=== PATIENT | male | born 1960 | race Caucasian/White ===

== ENCOUNTER 2017-07-10 12:26 | Inpatient (IN) ==
[2017-07-10] MEDS ORDERED: 0.9 % Sodium Chloride 1,000 ML IVC ONE ×2 (12:32→13:06)
--- NOTE | 2017-07-10 12:52 | Emergency Department Note ---
Disposition Clinical Impression: SID (acute kidney injury), Hyponatremia Hypotension Qualifiers: Hypotension type: unspecified hypotension type Qualified Code(s): I95.9 - Hypotension, unspecified Disposition: Admitted As Inpatient General Adult HPI - General Chief complaint: ED Dizziness Stated complaint: dizziness/hypotension Time Seen by Provider: 07/10/17 12:29 Source: patient, EMS Mode of arrival: EMS Limitations: no limitations Nursing Notes Reviewed: Yes Vital Signs Reviewed: Yes - History of Present Illness HPI Narrative: Patient presents to the ED with the chief complaint of "I feel bad." Patient reports that for the last week. He just has not felt well. States he feels weak and lightheaded. No focal weakness, but states he is just very tired and feels rundown. He has had some nausea and vomiting after eating for the last week. No abdominal pain. No chest pain or shortness of breath. Reportedly went to therapy today for a left knee injury and noted to have low blood pressure, so he was sent to his primary care physician where his blood pressure was 80 systolic. He is on antihypertensive medications, but is only on lisinopril. No recent changes to his medicines. He does state that he is on Lasix for diastolic congestive heart failure Pain Scale: 0 - Related Data Home Medications Medication Instructions Recorded Confirmed Metformin [Glucophage] 1,000 mg PO BID 08/04/15 07/10/17 Albuterol Sulfate [Ventolin Hfa] 2 puff IH Q4H PRN 08/05/15 07/10/17 Budesonide/Formoterol 160/4.5 2 puff IH BIDR 08/05/15 07/10/17 [Symbicort] Canagliflozin [Invokana] 100 mg PO QAM 08/05/15 07/10/17 Cholecalciferol (Vitamin D3) 2,000 unit PO BID 08/05/15 07/10/17 [Vitamin D3] Clopidogrel [Plavix] 75 mg PO QAM 08/05/15 07/10/17 Linagliptin [Tradjenta] 5 mg PO QAM 08/05/15 07/10/17 Loratadine [Claritin] 10 mg PO QAM 08/05/15 07/10/17 EPINEPHrine [Epipen] 0.3 mg IM ONCE PRN 10/01/16 07/10/17 Omeprazole [PriLOSEC] 40 mg PO DAILY 10/01/16 07/10/17 Cephalexin [Keflex] 500 mg PO TID 07/10/17 07/10/17 Ibuprofen [Motrin] 600 mg PO Q8HR 07/10/17 07/10/17 Lisinopril [Zestril] 10 mg PO DAILY 07/10/17 07/10/17 Lovastatin 80 mg PO HS 07/10/17 07/10/17 Mirtazapine [Remeron] 15 mg PO HS 07/10/17 07/10/17 Propylene Glycol/Peg 400 [Systane 1 drop OP Q6H PRN 07/10/17 07/10/17 0.3-0.4% Eye Drops] Sertraline [Zoloft] 200 mg PO DAILY 07/10/17 07/10/17 Allergies Allergy/AdvReac Type Severity Reaction Status Date / Time aspirin Allergy Anaphylaxis Verified 07/10/17 12:28 Bee Pollen Allergy Anaphylaxis Verified 07/10/17 12:28 naproxen [From Aleve] Allergy Anaphylaxis Verified 07/10/17 12:28 spider venom Allergy Swelling Verified 07/10/17 12:28 of Lip/Tongue/Throat All systems ED: reviewed and negative except as stated. Constitutional: Reports: weakness. Denies: fever Eyes: Denies: vision change ENT ED: Denies: ear pain Cardiovascular: Denies: chest pain Respiratory: Denies: cough, dyspnea Gastrointestinal: Reports: nausea, vomiting. Denies: abdominal pain, diarrhea, hematemesis, melena, hematochezia Genitourinary: Denies: dysuria Musculoskeletal: Denies: back pain, neck pain Integumentary: Denies: rash Neurological: Reports: weakness, other (lightheaded). Denies: headache Endocrine: Reports: fatigue Past Medical History - Past Medical History Attestation: Yes The following information was validated with the patient. Source: patient Medical history: Reports: asthma, CHF, COPD, coronary artery disease, diabetes, GERD, hyperlipidemia, hypertension, other Surgical history: Reports: appendectomy, cholecystectomy Psychiatric history: Reports: depression - Social History Smoking Status: Never smoker Smokeless Tobacco Status: No Alcohol use: Reports: none Drug use: Reports: none Physical Exam - General Limitations: no limitations General appearance: alert, in no apparent distress - Head Head exam: atraumatic, normocephalic, normal inspection - Eye Eye exam: Present: normal appearance, PERRL, EOMI - ENT ENT exam: normal exam, normal oropharynx, mucous membranes moist - Neck Neck exam: Present: normal inspection, full ROM, trachea midline - Chest Chest inspection: Present: normal inspection, symmetric chest wall rise - Respiratory Respiratory exam: Present: normal lung sounds bilaterally. Absent: respiratory distress - Cardiovascular Cardiovascular exam: Present: regular rate, normal rhythm, normal heart sounds - Abdominal Exam Abdominal exam: Present: soft, Non-Tender, scar (Large right upper quadrant scar , well-healed). Absent: tenderness, distention, guarding, rebound, rigidity - Extremities Exam Extremities exam: Present: normal inspection, full ROM, other (L knee brace in place, reports from "brittle bones" ). Absent: tenderness, pedal edema - Expanded Lower Extremity Exam Hip/Pelvis exam: Present: pelvis stable - Neurological Exam Neurological exam: Present: alert, oriented X3 - Psychiatric Psychiatric exam: Present: normal affect, normal mood - Skin Skin exam: Present: warm, dry, intact, normal color Course Vital Signs Temperature 96.7 F L 07/10/17 12:29 Pulse Rate 74 07/10/17 12:29 Respiratory Rate 16 07/10/17 12:29 Blood Pressure 94/54 07/10/17 12:29 O2 Sat by Pulse Oximetry 94 07/10/17 12:29 Temperature 97.3 F L 07/10/17 16:21 Pulse Rate 73 07/10/17 16:21 Respiratory Rate 18 07/10/17 16:21 Blood Pressure 91/58 07/10/17 16:21 O2 Sat by Pulse Oximetry 97 07/10/17 16:21 Oxygen Delivery Oxygen Delivery Room Air Medical Decision Making - Medical Records Medical records reviewed: Yes I reviewed the patient's medical records. - Lab Data Lab results reviewed: Yes I reviewed the patient's lab results. Result diagrams: 07/10/17 13:19 07/10/17 13:11 Lab Results 07/10/17 07/10/17 07/10/17 Range/Units 13:11 13:13 13:13 WBC (4.3-11.1) K/mcL RBC (4.19-5.50) M/mcL Hgb (12.9-16.9) g/dL Hct (37.5-50.1) % MCV (83.0-100.0) fL MCH (28.0-33.3) pg MCHC (31.6-35.5) g/dL RDW (11.5-14.5) % Plt Count (140-400) K/mcL MPV (9.4-12.4) fL Immature Gran % (0-4) % Seg Neutrophils % % Lymphocytes % % Monocytes % % Eosinophils % % Basophils % % Neutrophils # (1.6-8.9) K/mcL Lymphocytes # (0.6-4.6) K/mcL Monocytes # (0.0-1.3) K/mcL Eosinophils # (0.0-0.6) K/mcL Basophils # (0.0-0.2) K/mcL Sodium 131 L (136-145) mEq/L Potassium 4.2 (3.5-4.5) mEq/L Chloride 106 (98-109) mEq/L Carbon Dioxide 15 L (19-29) mEq/L BUN 41 H (8-26) mg/dL Creatinine 3.05 H (0.72-1.25) mg/dL Est GFR ( Amer) 26 L (> 60) Est GFR (Non-Af Amer) 21 L (> 60) BUN/Creatinine Ratio 13 (6-26) Glucose 123 H (70-99) mg/dL Calculated Osmolality 283 (280-300) Lactic Acid (0.5-2.2) mmol/L Calcium 8.5 L (8.6-10.8) mg/dL Total Bilirubin 0.3 (0.2-1.2) mg/dL AST 44 H (5-34) Units/L ALT 51 (0-55) Units/L Alkaline Phosphatase 95 (38-126) Units/L Troponin I 0.00 (0-0.03) ng/mL Serum Total Protein 6.7 (6.0-8.3) g/dL Albumin 3.2 L (3.5-5.0) g/dL Globulin 3.5 (2.4-3.5) g/dL Albumin/Globulin Ratio 0.9 L (1.1-2.2) TSH 1.210 (0.350-4.840) mcIU/mL 07/10/17 07/10/17 Range/Units 13:13 13:19 WBC 4.6 (4.3-11.1) K/mcL RBC 4.75 (4.19-5.50) M/mcL Hgb 12.5 L (12.9-16.9) g/dL Hct 40.0 (37.5-50.1) % MCV 84.2 (83.0-100.0) fL MCH 26.3 L (28.0-33.3) pg MCHC 31.3 L (31.6-35.5) g/dL RDW 14.3 (11.5-14.5) % Plt Count 221 (140-400) K/mcL MPV 10.6 (9.4-12.4) fL Immature Gran % 0.4 (0-4) % Seg Neutrophils % 65.2 % Lymphocytes % 18.5 % Monocytes % 14.3 % Eosinophils % 0.9 % Basophils % 0.7 % Neutrophils # 3.0 (1.6-8.9) K/mcL Lymphocytes # 0.9 (0.6-4.6) K/mcL Monocytes # 0.7 (0.0-1.3) K/mcL Eosinophils # 0.0 (0.0-0.6) K/mcL Basophils # 0.0 (0.0-0.2) K/mcL Sodium (136-145) mEq/L Potassium (3.5-4.5) mEq/L Chloride (98-109) mEq/L Carbon Dioxide (19-29) mEq/L BUN (8-26) mg/dL Creatinine (0.72-1.25) mg/dL Est GFR ( Amer) (> 60) Est GFR (Non-Af Amer) (> 60) BUN/Creatinine Ratio (6-26) Glucose (70-99) mg/dL Calculated Osmolality (280-300) Lactic Acid 1.5 (0.5-2.2) mmol/L Calcium (8.6-10.8) mg/dL Total Bilirubin (0.2-1.2) mg/dL AST (5-34) Units/L ALT (0-55) Units/L Alkaline Phosphatase (38-126) Units/L Troponin I (0-0.03) ng/mL Serum Total Protein (6.0-8.3) g/dL Albumin (3.5-5.0) g/dL Globulin (2.4-3.5) g/dL Albumin/Globulin Ratio (1.1-2.2) TSH (0.350-4.840) mcIU/mL - Radiology Data Radiology results reviewed: Yes I reviewed the patient's radiology results. - EKG Data EKG #1 EKG attestation: Yes I reviewed and interpreted this EKG. EKG results narrative: Sinus rhythm with first-degree AV block, rate 74, DE interval 349, QRS 90, QTC 370, normal axis, no acute ischemic changes compared to previous on 3016
--- NOTE | 2017-07-10 13:10 | Emergency Department Note ---
START Narrative - START START: I examined this patient and my medical decision-making was reviewed with the emergency medicine resident. I agree with the documented findings, disposition and treatment plan as described except to the extent set forth below. Patient seen with emergency medicine resident Dr. Saran Cartwright, Please see a copy of his note for details of the H&P, ED evaluation, management and disposition. I have independently evaluated the patient and confirmed appropriate portions of the history and physical exam. Briefly: A 57-year-old male by EMS for hypertension and dizziness. Takes only lisinopril for blood pressure control and 10 mg. Normal systolic runs in the low 1 teens. He was 70 and 80 systolic standing and sitting. After a liter fluid he was 90 systolic. No external signs of infection hemorrhage or trauma. Visual get ED workup increased IV fluid. Possibly admission for persistent hypotension. Providing 35 minutes critical care service for this patient.
[2017-07-10 13:28] LABS: Basophils % 0.7 %; Eosinophils % 0.9 %; Hemoglobin 12.5 g/dL (12.9-16.9); Immature Granulocytes % 0.4 % (0-4); Lymphocytes # 0.9 K/mcL (0.6-4.6); Lymphocytes % 18.5 %; Mean Corpuscular HGB Conc 31.3 g/dL (31.6-35.5); Mean Corpuscular Hemoglobin 26.3 pg (28.0-33.3); Mean Corpuscular Volume 84.2 fL (83.0-100.0); Mean Platelet Volume 10.6 fL (9.4-12.4); Monocytes # 0.7 K/mcL (0.0-1.3); Monocytes % 14.3 %; Platelet Count 221 K/mcL (140-400); Red Blood Count 4.75 M/mcL (4.19-5.50); Red Cell Distribution Width 14.3 % (11.5-14.5); Segmented Neutrophils % 65.2 %
[2017-07-10 13:36] LABS: Albumin 3.2 g/dL (3.5-5.0); Albumin/Globulin Ratio 0.9 (1.1-2.2); Bilirubin,Total 0.3 mg/dL (0.2-1.2); Calcium 8.5 mg/dL (8.6-10.8); Globulin 3.5 g/dL (2.4-3.5); Potassium 4.2 mEq/L (3.5-4.5); Total Protein 6.7 g/dL (6.0-8.3)
--- NOTE | 2017-07-10 15:53 | Event Note ---
Date of Encounter: 07/10/17 Time of Encounter: 15:49 1) acute on chronic renal failure, unclear etiology, nephrology consult hold lisinopril and lasix send urine prot, creat and Na IVF 2)diast CHF stable 3) DOROTHY, uses BIPAP 4) GERD famotidine for GI Prophylaxis and sub Q heparin for GI prophylaxis. Obaservation, full code. Time spent: 40 min H and P to be completed by PERSONNEL ARBITRATOR Milagro Antunez
[2017-07-10] MEDS ORDERED: *HR* Dextrose 50 % in Water (Syg) 50 ML SYRINGE IVP PRN (15:57)
[2017-07-10] MEDS ORDERED: Dextrose Gel 15 GM PO PRN ×2 (15:57)
[2017-07-10] MEDS ORDERED: D5% in Water 1,000 ML IVC PRN (15:57)
[2017-07-10] MEDS ORDERED: Naloxone 0.4 MG/ML INJ IVP PRN (16:12)
--- NOTE | 2017-07-10 16:26 | Internal Med History&Physical ---
Date of Encounter: 07/10/17 Time of Encounter: 16:21 Assessment and Plan (1) Acute renal failure Current visit: Yes Status: Acute 1 creatinine is 3.05 it appears it has been going up past few months in April was 1.9. He has been taking lisinopril as well as ibuprofen states he was on Lasix but recently stopped. Suspect this may be related to hypoperfusion systolic blood pressures 70s and 80s. We will continue with IV hydration overnight and continue to monitor creatinine 2 we will avoid nephrotoxins 3 consult nephrology-spoke with Dr. Dee who will see patient 4 monitor intake and output daily weights 5 renal ultrasound 6 obtain urine sodium creatinine Qualifiers: Acute renal failure type: unspecified Qualified Code(s): N17.9 - Acute kidney failure, unspecified (2) Obstructive sleep apnea Current visit: No Status: Chronic Continue with BiPAP at night (3) Diabetes Current visit: No Status: Chronic 1 we will hold all medications for now Accu-Cheks before meals A status was signed scale insulin Qualifiers: Diabetes mellitus type: type 2 Diabetes mellitus complication status: without complication Diabetes mellitus buttermaker continuous churn insulin use: without buttermaker continuous churn use Qualified Code(s): E11.9 - Type 2 diabetes mellitus without complications (4) HTN (hypertension) Current visit: No Status: Chronic 1 Presently patient is hypotensive we will hold antihypertensives for now Qualifiers: Hypertension type: essential hypertension Qualified Code(s): I10 - Essential (primary) hypertension (5) COPD (chronic obstructive pulmonary disease) Current visit: No Status: Chronic 1 presently stable bronchodilators as needed oxygen as needed Qualifiers: COPD type: unspecified COPD Qualified Code(s): J44.9 - Chronic obstructive pulmonary disease, unspecified (6) DVT prophylaxis Current visit: No Status: Acute Heparin subcutaneous Internal Medicine - H&P: HPI Chief complaint: hypotension Admitted From: Emergency Dept Plans for Post Hospital Care: Home History of present illness: Mr. Varela is a 57 year old male past medical history of diastolic heart failure COPD and DOROTHY with BiPAP at night diabetes coronary artery disease hyperlipidemia hypertension coronary disease. According to the patient he has not been feeling well for the past week. He has been feeling weak and lightheaded and fatigued. He has had some episodes of nausea and vomiting after eating. He denies any abdominal pain chest pain or shortness of breath. He went to physical therapy today for a left knee injury, upon arrival they did check his blood pressure is systolic was in the 80s he was advised to go to his primary care physician. Upon arrival there his blood pressure is rechecked at that time he was in the mid 70s. He was advised to go to the ER for evaluation. He does take antihypertensive is on lisinopril as well as he does take Lasix for diastolic heart failure. However he states he has not taken his Lasix in the past 2 weeks due to dehydration. He denies any urinary complaints back pain or fevers. He has been taking ibuprofen for knee pain. In the ER lab work was drawn which did reveal an elevated creatinine 3.05 it appears that he was slightly increased for the past few months however this is the highest it has been. Bicarbonate is 15 sodium was 131 BUN was 41. Troponin was 0 TSH is 1.2 lactate was 1.5 leukocytosis. His pressure was 94/54 on presentation chest x-ray with no acute process. He denies any renal failure in the past He was given IV fluid and he has been admitted for further work up evaluation. Presently the patient does not appear to be dehydrated his lung sounds are clear heart sounds are regular abdomen is obese soft nontender palpation no pedal edema. He denies any chest pain lightheadedness or shortness of breath this time Past Med Surg Social Fam HX - Past Medical History Medical history: asthma, CHF, COPD, coronary artery disease, diabetes, GERD, hyperlipidemia, hypertension, other Psychiatric history: depression - Past Surgical History Surgical History: appendectomy, cholecystectomy - Social History Smoking Status: Never smoker Smokeless Tobacco Status: No Alcohol use: none Drug use: none - Family History Mother Adopted: Yes Internal Medicine - H&P: Meds Metformin [Glucophage] 1,000 mg PO BID 08/04/15 [History] Albuterol Sulfate [Ventolin Hfa] 2 puff IH Q4H PRN 08/05/15 [History] Budesonide/Formoterol 160/4.5 [Symbicort] 2 puff IH BIDR 08/05/15 [History] Canagliflozin [Invokana] 100 mg PO QAM 08/05/15 [History] Cholecalciferol (Vitamin D3) [Vitamin D3] 2,000 unit PO BID 08/05/15 [History] Clopidogrel [Plavix] 75 mg PO QAM 08/05/15 [History] Linagliptin [Tradjenta] 5 mg PO QAM 08/05/15 [History] Loratadine [Claritin] 10 mg PO QAM 08/05/15 [History] EPINEPHrine [Epipen] 0.3 mg IM ONCE PRN 10/01/16 [History] Omeprazole [PriLOSEC] 40 mg PO DAILY 10/01/16 [History] Cephalexin [Keflex] 500 mg PO TID 07/10/17 [History] Ibuprofen [Motrin] 600 mg PO Q8HR 07/10/17 [History] Lisinopril [Zestril] 10 mg PO DAILY 07/10/17 [History] Lovastatin 80 mg PO HS 07/10/17 [History] Mirtazapine [Remeron] 15 mg PO HS 07/10/17 [History] Propylene Glycol/Peg 400 [Systane 0.3-0.4% Eye Drops] 1 drop OP Q6H PRN [History] Sertraline [Zoloft] 200 mg PO DAILY 07/10/17 [History] 3 Allergy/AdvReac Type Severity Reaction Status Date / Time aspirin Allergy Anaphylaxis Verified 07/10/17 12:28 Bee Pollen Allergy Anaphylaxis Verified 07/10/17 12:28 naproxen [From Aleve] Allergy Anaphylaxis Verified 07/10/17 12:28 spider venom Allergy Swelling Verified 07/10/17 12:28 of Lip/Tongue/Throat All Systems PM: A 10-system review of systems was performed and is negative for pertinent findings except as documented above in the HPI. - Constitutional Constitutional: fatigue, no chills, no fever(s), no night sweats - EENT Eyes: no change in vision, no discharge, no pain, no photophobia Nose, mouth and throat: no dysphagia, no nasal discharge, no neck pain, no sore throat - Cardiovascular Cardiovascular ROS IM: no chest pain, no diaphoresis, no dyspnea, no lightheadedness, no palpitations, no syncope - Respiratory Respiratory: no cough, no dyspnea, no wheezing, no excessive phlegm production - Gastrointestinal Gastrointestinal: nausea - Musculoskeletal Musculoskeletal ROS IM: no numbness, no tingling - Integumentary Integumentary IM: no rash, no unusual bruising - Neurological Neurological ROS: no confusion, no convulsions, no focal weakness, no numbness, no tingling, no tremor(s) - Hematologic/Lymphatic Hematologic/Lymphatic: no easy bruising - Constitutional Vitals: Temp Pulse Resp BP Pulse Ox 96.7 F L 68 15 99/68 98 07/10/17 12:29 07/10/17 15:13 07/10/17 15:31 07/10/17 15:31 07/10/17 15:13 General appearance: Present: A&O X 3, answers questions appropriately - Head Head exam: Present: atraumatic, normocephalic - Eye Eye exam: Present: PERRL, conjuntiva pink, sclera anicteric Pupils: Present: PERRL - Neck Neck exam general surgery: Present: supple, trachea midline. Absent: lymphadenopathy - Respiratory Respiratory exam: Present: CTAB. Absent: accessory muscle use, rales, rhonchi, wheezes - Cardiovascular Cardiovascular exam: Present: RRR, +S1, +S2. Absent: diastolic murmur, gallop, rubs, systolic murmur - GI/Abdominal GI/Abdominal exam: Present: normal bowel sounds, soft, no peritoneal signs. Absent: distended, tenderness - Extremities Exam Extremities exam: Present: warm, radial pulses palpable and symmetrical. Absent : calf tenderness, cyanotic, pedal edema - Neurological Exam Neurological exam: Present: CN II-XII intact, oriented X3, no focal deficits. Absent: pronater drift, facial droop, speech deficit - Skin Skin exam: Present: dry, intact Internal Med - H&P Results - Labs CBC & Chem 7: 07/10/17 13:19 07/10/17 13:11 - Diagnostic Studies Other Images Additional comments: Chest X-Ray 07/10/17 12:32 IMPRESSION: No acute process. D/ / Marilyn Shirley MD / Marilyn Shirley MD Interpreting Provider: Marilyn Shirley MD
[2017-07-10] MEDS ORDERED: Albuterol 2.5 MG/3 ML NEBULIZER IH PRN (16:55)
[2017-07-10 17:09] LABS: Protein/Creatinine Ratio,Urine 0.44 mg/mg (0-0.20)
--- NOTE | 2017-07-10 17:45 | Nephrology Consult Note ---
Date of Encounter: 07/10/17 Time of Encounter: 17:30 Assessment and Plan (1) SID (acute kidney injury) Current Visit: Yes Status: Acute Elevated SCr in the setting of hypotension, ACEi and NSAIDs Agree with aggressive volume repletion Agree with avoiding lisinopril, ibuprofen and diuretics Agree with obtaining US of kidney Will check urine for eosinophil. Urine sodium noted Will check CPK and uric acid levels No acute indication for [employer] at this time (2) Hyponatremia Current Visit: Yes Status: Acute Sodium noted at 131 likely due to SID Should improve with IVF; NS (3) Metabolic acidosis Current Visit: Yes Status: Acute Due to SID, continue NS for now for volume repletion If bicarb still low by tomorrow, can add bicarb to fluids History of Present Illness - Reason for Consult Consult date: 07/10/17 Acute Kidney Injury Requesting physician: Milagro Antunez - History of Present Illness 57 y o female with PMH of DM, HTN, diastolic CHF, COPD and DOROTHY presenting in the ED for dizziness and lightheadedness and was noted to have BP readings around 70s systolic while on lisinopril. He reports taking lasix until 2 weeks ago. Scr noted at 3.05, GFR 21 previously 1.9, GFR 36 in April but prior to february GFR typically >60. He denies any family history of renal disease and reports SID during previous hospital sty. He denies any urinary sxs. He reports taking ibuprofen three times daily for arthritis. Past Med Surg Social Fam HX - Past Medical History Medical history: asthma, CHF, COPD, coronary artery disease, diabetes, GERD, hyperlipidemia, hypertension, other Psychiatric history: depression - Past Surgical History Surgical History: appendectomy, cholecystectomy - Social History Smoking Status: Never smoker Smokeless Tobacco Status: No Alcohol use: none Drug use: none - Family History Mother Adopted: Yes Medications and Allergies Metformin [Glucophage] 1,000 mg PO BID 08/04/15 [History] Albuterol Sulfate [Ventolin Hfa] 2 puff IH Q4H PRN 08/05/15 [History] Budesonide/Formoterol 160/4.5 [Symbicort] 2 puff IH BIDR 08/05/15 [History] Canagliflozin [Invokana] 100 mg PO QAM 08/05/15 [History] Cholecalciferol (Vitamin D3) [Vitamin D3] 2,000 unit PO BID 08/05/15 [History] Clopidogrel [Plavix] 75 mg PO QAM 08/05/15 [History] Linagliptin [Tradjenta] 5 mg PO QAM 08/05/15 [History] Loratadine [Claritin] 10 mg PO QAM 08/05/15 [History] EPINEPHrine [Epipen] 0.3 mg IM ONCE PRN 10/01/16 [History] Omeprazole [PriLOSEC] 40 mg PO DAILY 10/01/16 [History] Cephalexin [Keflex] 500 mg PO TID 07/10/17 [History] Ibuprofen [Motrin] 600 mg PO Q8HR 07/10/17 [History] Lisinopril [Zestril] 10 mg PO DAILY 07/10/17 [History] Lovastatin 80 mg PO HS 07/10/17 [History] Mirtazapine [Remeron] 15 mg PO HS 07/10/17 [History] Propylene Glycol/Peg 400 [Systane 0.3-0.4% Eye Drops] 1 drop OP Q6H PRN [History] Sertraline [Zoloft] 200 mg PO DAILY 07/10/17 [History] 3 Allergy/AdvReac Type Severity Reaction Status Date / Time aspirin Allergy Anaphylaxis Verified 07/10/17 12:28 Bee Pollen Allergy Anaphylaxis Verified 07/10/17 12:28 naproxen [From Aleve] Allergy Anaphylaxis Verified 07/10/17 12:28 spider venom Allergy Swelling Verified 07/10/17 12:28 of Lip/Tongue/Throat Review of Systems All Systems: reviewed and no additional remarkable complaints except as stated ( as noted in HPI) Exam - Vital Signs Vital signs: Initial Vital Signs Temp Pulse Resp BP Pulse Ox 96.7 F L 74 16 94/54 94 07/10/17 12:29 07/10/17 12:29 07/10/17 12:29 07/10/17 12:29 07/10/17 12:29 Vital Signs - Last 8 Hours Temp Pulse Resp BP Pulse Ox 07/10/17 16:21 97.3 F L 73 18 91/58 97 Intake and Output 07/10/17 07/10/17 07/10/17 07:59 15:59 23:59 Output Total 150 / 150 Balance -150 / -150 Output: Urine 150 / 150 Other: Stool Size Small Stool Consistency loose Stool Color Brown Blood Glucose* 104 - General Appearance General appearance: well-developed, well-nourished (NAD) EENT: ATNC, mucous membranes dry Neck: no JVD, supple Respiratory: clear (ant bilat) Cardiology: no edema, regular rate, regular rhythm, normal S1, normal S2 Gastrointestinal: no tenderness, no guarding Integumentary: warm and dry Neurologic: no focal deficit Musculoskeletal: no deformities Psychiatric: mood/affect appropriate, cooperative Results - Lab Results 07/10/17 13:19 07/10/17 13:11 Most recent lab results Calcium 8.5 mg/dL (8.6-10.8) L 07/10/17 13:11 Urine Creatinine 117 mg/dL 07/10/17 16:18 Urine Sodium 49.0 mEq/L 07/10/17 16:18 Urine Total Protein 51 mg/dL (1-14) H 07/10/17 16:18 Consult Discharge Plan - Plan Referrals: Zeynep Byrnes MD [Primary Care Provider] -
[2017-07-10] MEDS: Insulin LISPRO 300 UNITS/3 ML VIAL SQ SCH (17:49)
[2017-07-10] MEDS: 0.9 % Sodium Chloride 1,000 ML IVC SCH (18:05)
[2017-07-10] MEDS: *HR* Heparin 5,000 UNIT/ML VIAL SQ SCH (18:05)
[2017-07-10 18:50] LABS: Uric Acid 6.9 mg/dL (3.5-7.2)
--- NOTE | 2017-07-10 19:56 | Electrocardiograph Report ---
[place] [address] Test Date: 2017-07-10 Pat Name: Chase Varela Department: 103 Room: 2A Gender: M [employer] Compensation Defense Attorney: : 1960 Requested By: Saran Cartwright Order Number: [id number] Reading MD: Aleks Monteiro MD Measurements Intervals [place] Rate: 74 P: 24 MI: 349 QRS: 9 QRSD: 90 T: 5 QT: 343 QTc: 370 Interpretive Statements SINUS RHYTHM WITH FIRST DEGREE AV BLOCK LOW QRS VOLTAGE IN PRECORDIAL LEADS Electronically Signed On 07-10-2017 19:54:41 EDT by Aleks Monteiro MD
[2017-07-10] MEDS: Mirtazapine 15 MG TABLET PO SCH (20:46)
[2017-07-10] MEDS: Budesonide/Formoterol 160/4.5 MDI IH SCH (22:45)
[2017-07-11] MEDS: 0.9 % Sodium Chloride 1,000 ML IVC SCH ×2 (03:53→11:40)
[2017-07-11 04:27] LABS: Basophils % 0.9 %; Eosinophils % 0.6 %; Hematocrit 33.6 % (37.5-50.1); Immature Granulocytes % 0.6 % (0-4); Lymphocytes % 28.4 %; Mean Corpuscular HGB Conc 31.8 g/dL (31.6-35.5); Mean Corpuscular Hemoglobin 26.6 pg (28.0-33.3); Mean Corpuscular Volume 83.6 fL (83.0-100.0); Mean Platelet Volume 10.1 fL (9.4-12.4); Monocytes # 0.5 K/mcL (0.0-1.3); Monocytes % 13.7 %; Neutrophils # 1.9 K/mcL (1.6-8.9); Platelet Count 168 K/mcL (140-400); Red Blood Count 4.02 M/mcL (4.19-5.50); Red Cell Distribution Width 14.2 % (11.5-14.5); Segmented Neutrophils % 55.8 %
[2017-07-11 04:28] LABS: Hemoglobin 10.7 g/dL (12.9-16.9)
[2017-07-11 04:40] LABS: Calcium 8.3 mg/dL (8.6-10.8); Magnesium 1.8 mg/dL (1.6-2.6); Phosphorous 4.4 mg/dL (2.3-4.7)
[2017-07-11] MEDS: *HR* Heparin 5,000 UNIT/ML VIAL SQ SCH ×2 (06:10→16:50)
[2017-07-11] MEDS: Insulin LISPRO 300 UNITS/3 ML VIAL SQ SCH ×4 (07:24→21:10)
--- NOTE | 2017-07-11 10:40 | Nephrology Progress Note ---
Date of Encounter: 07/11/17 Time of Encounter: 09:45 - Assessment and Plan (1) SID (acute kidney injury) Current Visit: Yes Status: Acute Nonoliguric SID on CKD stage III, trending better, but with his hyperchloremic metabolic acidosis I rec switching the 0.9% saline (which can worsening / induce a dilutional metabolic acidosis) to 1/2NS +75mEq. Renal U/S was reassuring. SID related to NSAIDs, Metformin, Invokana with pre-existing eGFR near upper 30s since February, consistent with CKD stage III. Hold all nephrotoxins. Trending better. (2) Metabolic acidosis Current Visit: Yes Status: Acute (3) Diabetes Current Visit: No Status: Chronic Qualifiers: Diabetes mellitus type: type 2 Diabetes mellitus complication status: without complication Diabetes mellitus residential insulin use: without director long term care use Qualified Code(s): E11.9 - Type 2 diabetes mellitus without complications (4) HTN (hypertension) Current Visit: Yes Status: Chronic Qualifiers: Hypertension type: essential hypertension Qualified Code(s): I10 - Essential (primary) hypertension (5) CKD stage 3 secondary to diabetes Current Visit: Yes Status: Chronic Subjective Principal diagnosis: SID Interval history: Pt was s/e earlier today. He did not affirm N/V/D or uremic symptoms. Objective - Vital Signs Vital signs: Vital Signs Temp Pulse Resp BP Pulse Ox 07/11/17 06:51 98.0 F 75 24 91/56 98 07/11/17 05:06 97.7 F 82 20 100/64 97 07/11/17 04:09 25 96 07/10/17 23:31 97.9 F 83 20 106/56 100 07/10/17 22:50 27 98 07/10/17 22:45 20 95 07/10/17 20:31 98 F 75 20 96/57 97 07/10/17 16:21 97.3 F L 73 18 91/58 97 Intake and Output 07/10/17 07/11/17 07/11/17 23:59 07:59 15:59 Intake Total 240 / 240 1120 / 1120 840 / 840 Output Total 500 / 500 1550 / 1550 175 / 175 Balance -260 / -260 -430 / -430 665 / 665 Intake: IV Fluids 1000 / 1000 600 / 600 0.9 % Sodium Chloride 1,000 ML 1000 / 1000 600 / 600 @ 100 mls/hr IVC .Q10H [facility] Rx#: [id number] Oral 240 / 240 120 / 120 240 / 240 Output: Urine 500 / 500 1550 / 1550 175 / 175 Other: Meal Breakfast Percent of Meal Consumed 100% Stool Size Small Stool Consistency loose Stool Color Brown # Voids 1 Weight 102.058 kg Blood Glucose* 96 86 198 Patient Weight 07/11/17 23:59 Weight 102.058 kg - General Appearance General appearance: Present: well-developed, well-nourished, appears started age , obese EENT: Present: ATNC, PERRL, mucous membranes moist Neck: Present: supple Respiratory: Present: course breath sounds Cardiology: Present: no edema, regular rate, regular rhythm, normal S1, normal S2 Gastrointestinal: Present: normoactive bowel sounds, no guarding, obese Integumentary: Present: warm and dry Neurologic: Present: no asterixis, alert and oriented x3 Musculoskeletal: Present: no cyanosis, no clubbing Psychiatric: Present: mood/affect appropriate, cooperative - Lab 07/11/17 04:18 07/11/17 04:18 Most recent lab results Calcium 8.3 mg/dL (8.6-10.8) L 07/11/17 04:18 Phosphorus 4.4 mg/dL (2.3-4.7) 07/11/17 04:18 Magnesium 1.8 mg/dL (1.6-2.6) 07/11/17 04:18 Urine Creatinine 117 mg/dL 07/10/17 16:18 Urine Sodium 49.0 mEq/L 07/10/17 16:18 Urine Total Protein 51 mg/dL (1-14) H 07/10/17 16:18 Consult Discharge Plan - Plan Referrals: Zeynep Byrnes MD [Primary Care Provider] -
[2017-07-11] MEDS: Budesonide/Formoterol 160/4.5 MDI IH SCH ×2 (10:51→22:35)
--- NOTE | 2017-07-11 17:01 | Internal Med Progress Note ---
Date of Encounter: 07/11/17 Time of Encounter: 16:59 - Assessment and plan (1) Acute renal failure Current Visit: Yes Status: Acute Qualifiers: Acute renal failure type: unspecified Qualified Code(s): N17.9 - Acute kidney failure, unspecified (2) Metabolic acidosis Current Visit: Yes Status: Acute (3) Diabetes Current Visit: No Status: Chronic Qualifiers: Diabetes mellitus type: type 2 Diabetes mellitus complication status: without complication Diabetes mellitus correction insulin use: without terminal supervisor use Qualified Code(s): E11.9 - Type 2 diabetes mellitus without complications (4) HTN (hypertension) Current Visit: Yes Status: Chronic Qualifiers: Hypertension type: essential hypertension Qualified Code(s): I10 - Essential (primary) hypertension (5) HLD (hyperlipidemia) Current Visit: Yes Status: Chronic Qualifiers: Hyperlipidemia type: unspecified Qualified Code(s): E78.5 - Hyperlipidemia , unspecified (6) COPD (chronic obstructive pulmonary disease) Current Visit: Yes Status: Chronic Qualifiers: COPD type: unspecified COPD Qualified Code(s): J44.9 - Chronic obstructive pulmonary disease, unspecified - Subjective Interval history: Mr. Chase Varela is a 57-year-old male with past medical history significant for hypertension dyslipidemia and diabetes and stage III CKD. He is admitted with acute on chronic kidney disease. Previously creatinine was normal but now it has mounted up above 3. This morning it has started to come down with IV hydration. His nephrotoxins including lisinopril and metformin, Invokana,and Tradjenta are on hold now. Overall patient seems to stable. Nephrology is consulted Patient is on sliding scale with Accu-Chek 4 times a day as well as his daily blood pressure monitoring. - Constitutional Vitals: Temp Pulse Resp BP Pulse Ox 97.6 F 74 24 103/67 97 07/11/17 15:52 07/11/17 15:52 07/11/17 15:52 07/11/17 15:52 07/11/17 15:52 General appearance: Present: A&O X 3, answers questions appropriately - Head Head exam: Present: atraumatic, normocephalic - Eye Eye exam: Present: PERRL, conjuntiva pink, sclera anicteric Pupils: Present: PERRL - Neck Neck exam general surgery: Present: supple, trachea midline. Absent: lymphadenopathy - Respiratory Respiratory exam: Present: CTAB. Absent: accessory muscle use, rales, rhonchi, wheezes - Cardiovascular Cardiovascular exam: Present: RRR, +S1, +S2. Absent: diastolic murmur, gallop, rubs, systolic murmur - GI/Abdominal GI/Abdominal exam: Present: normal bowel sounds, soft, no peritoneal signs. Absent: distended, tenderness - Extremities Exam Extremities exam: Present: warm, radial pulses palpable and symmetrical. Absent : calf tenderness, cyanotic, pedal edema - Neurological Exam Neurological exam: Present: CN II-XII intact, oriented X3, no focal deficits. Absent: pronater drift, facial droop, speech deficit - Skin Skin exam: Present: dry, intact Internal Medicine: Result - Labs CBC & Chem 7: 07/11/17 04:18 07/11/17 04:18 Labs: Short CBC 07/11/17 Range/Units 04:18 WBC 3.4 L (4.3-11.1) K/mcL Hgb 10.7 L D (12.9-16.9) g/dL Hct 33.6 L (37.5-50.1) % Plt Count 168 (140-400) K/mcL Neutrophils # 1.9 (1.6-8.9) K/mcL BMP 07/11/17 04:18 Sodium 133 L Potassium 4.0 Chloride 110 H Carbon Dioxide 15 L BUN 34 H Creatinine 2.32 H Glucose 95 Calcium 8.3 L - Impressions Impressions Retroperitoneum Ultrasound 07/10/17 18:00 IMPRESSION: Unremarkable ultrasound the kidneys without evidence of hydronephrosis. D/ / Dallas Nicole MD / Dallas Nicole MD Interpreting Provider: Dallas Nicole MD Consult Discharge Plan - Plan Referrals: Zeynep Byrnes MD [Primary Care Provider] -
[2017-07-11] MEDS ORDERED: Sodium Bicarbonate 75 MEQ in 0.45 % Sodium Chloride 1,000 ML IVC SCH (17:15)
[2017-07-11] MEDS: Sodium Bicarbonate 75 MEQ in 0.45 % Sodium Chloride 1,000 ML IVC SCH (18:25)
[2017-07-11] MEDS: Mirtazapine 15 MG TABLET PO SCH (21:09)
[2017-07-11] MEDS: Melatonin 3 MG TABLET PO SCH (21:09)
[2017-07-11] MEDS ORDERED: Budesonide/Formoterol 80/4.5 MDI IH SCH (22:28)
[2017-07-12 04:11] LABS: Basophils % 0.9 %; Eosinophils % 0.6 %; Hematocrit 31.6 % (37.5-50.1); Hemoglobin 10.4 g/dL (12.9-16.9); Immature Granulocytes % 0.3 % (0-4); Lymphocytes # 1.1 K/mcL (0.6-4.6); Lymphocytes % 33.5 %; Mean Corpuscular HGB Conc 32.9 g/dL (31.6-35.5); Mean Corpuscular Hemoglobin 27.3 pg (28.0-33.3); Mean Corpuscular Volume 82.9 fL (83.0-100.0); Mean Platelet Volume 10.5 fL (9.4-12.4); Monocytes # 0.4 K/mcL (0.0-1.3); Monocytes % 11.8 %; Neutrophils # 1.8 K/mcL (1.6-8.9); Platelet Count 173 K/mcL (140-400); Red Blood Count 3.81 M/mcL (4.19-5.50); Red Cell Distribution Width 14.4 % (11.5-14.5); Segmented Neutrophils % 52.9 %
[2017-07-12 04:28] LABS: Alanine Aminotransferase 37 Units/L (0-55); Albumin 2.9 g/dL (3.5-5.0); Albumin/Globulin Ratio 0.9 (1.1-2.2); Alkaline Phosphatase 80 Units/L (38-126); Aspartate Amino Transferase 32 Units/L (5-34); BUN/Creatinine Ratio 21 (6-26); Bilirubin,Total 0.3 mg/dL (0.2-1.2); Blood Urea Nitrogen 27 mg/dL (8-26); Calcium 8.5 mg/dL (8.6-10.8); Carbon Dioxide 20 mEq/L (19-29); Chloride 111 mEq/L (98-109); Globulin 3.3 g/dL (2.4-3.5); Glucose 111 mg/dL (70-99); Magnesium 1.4 mg/dL (1.6-2.6); Osmolality,Calculated 292 (280-300); Phosphorous 3.4 mg/dL (2.3-4.7); Sodium 138 mEq/L (136-145); Total Protein 6.2 g/dL (6.0-8.3); eGFR For African Americans > 60 (> 60); eGFR For Non-African Americans 57 (> 60)
[2017-07-12] MEDS: Sodium Bicarbonate 75 MEQ in 0.45 % Sodium Chloride 1,000 ML IVC SCH (04:55)
[2017-07-12] MEDS: *HR* Heparin 5,000 UNIT/ML VIAL SQ SCH ×2 (04:57→17:53)
[2017-07-12] MEDS: Insulin LISPRO 300 UNITS/3 ML VIAL SQ SCH ×4 (07:29→20:43)
[2017-07-12] MEDS: Budesonide/Formoterol 160/4.5 MDI IH SCH ×2 (07:45→19:51)
[2017-07-12] MEDS: Magnesium Sulfate 2 GM in D5% in Water 100 ML IVPB SCH ×2 (08:27→09:41)
--- NOTE | 2017-07-12 09:58 | Nephrology Progress Note ---
Date of Encounter: 07/12/17 Time of Encounter: 08:00 - Assessment and Plan (1) SID (acute kidney injury) Current Visit: Yes Status: Acute Nonoliguric SID on CKD stage III, trending better even more today to near his prior eGFR levels (based upon the trended data in [employer]) Metabolic acidosis: has improved with the change to the 1/2NS +75mEq. However, now that he has nearly reached renal recovery and he has no N/V or limitations to oral intake, I will stop the IVF today. Renal U/S was reassuring. SID related to NSAIDs, Metformin, Invokana with pre-existing eGFR near upper 30s since February, consistent with CKD stage III. Hold all nephrotoxins such as invokana and metformin until the pt can see his PCP. My colleague Dr. Dee was the first in our group to establish care, so I recommend the pt follow up with her in about 4-6 weeks. Would recommend a BMP to be checked in about 1 week after discharge. Will sign off at this point. Please feel free to call or reconsult if needed. I spent about 20min with the pt and spent >50% in counseling the pt to avoid any use of OTC NSAIDs to continue adequate water hydration. Thank you. (2) Metabolic acidosis Current Visit: Yes Status: Acute See above (3) Diabetes Current Visit: No Status: Chronic See above Qualifiers: Diabetes mellitus type: type 2 Diabetes mellitus complication status: without complication Diabetes mellitus termite technician insulin use: without termite technician use Qualified Code(s): E11.9 - Type 2 diabetes mellitus without complications (4) HTN (hypertension) Current Visit: Yes Status: Chronic See above Qualifiers: Hypertension type: essential hypertension Qualified Code(s): I10 - Essential (primary) hypertension (5) CKD stage 3 secondary to diabetes Current Visit: Yes Status: Chronic See above Subjective Principal diagnosis: SID Interval history: Pt was s/e earlier today. He did not affirm N/V/D or uremic symptoms. He was seen sitting at the bedside chair and voiced having a good appetite. Objective - Vital Signs Vital signs: Vital Signs Temp Pulse Resp BP Pulse Ox 07/12/17 07:45 16 95 07/12/17 07:30 97.4 F L 73 14 116/76 97 07/12/17 04:44 70 16 92/57 96 07/12/17 04:32 19 98 07/11/17 23:39 97.7 F 86 18 112/74 94 07/11/17 22:38 19 93 07/11/17 22:35 16 93 07/11/17 19:07 98.3 F 84 18 94/61 97 07/11/17 15:52 97.6 F 74 24 103/67 97 07/11/17 11:24 98.9 F 77 20 96/62 96 07/11/17 10:51 16 94 Intake and Output 07/11/17 07/12/17 07/12/17 23:59 07:59 15:59 Intake Total 360 / 360 1950 / 1950 365 / 365 Output Total 400 / 400 1230 / 1230 Balance -40 / -40 720 / 720 365 / 365 Intake: IV Fluids 1075 / 1075 365 / 365 Sodium Bicarbonate 75 MEQ In 0. 1075 / 1075 261 / 261 45% Sodium Chloride 1000 Ml 1000 Ml 1,000 ML @ 75 mls/hr IVC .[id number] [facility] Rx#:[id number] Magnesium Sulfate 2 GM In 104 / 104 Dextrose 5% 100 ML @ 96.296 mls /hr IVPB Q1H [facility] Rx#:[id number] Oral 360 / 360 875 / 875 0 / 0 Output: Urine 400 / 400 1230 / 1230 Other: Meal Dinner Percent of Meal Consumed 100% Weight 100.2 kg Blood Glucose* 105 112 Patient Weight 07/12/17 23:59 Weight 100.2 kg - General Appearance General appearance: Present: well-developed, well-nourished, appears started age , obese EENT: Present: ATNC, PERRL, mucous membranes moist Neck: Present: supple Respiratory: Present: clear Cardiology: Present: no murmurs, no edema, regular rate, regular rhythm, normal S1, normal S2 Gastrointestinal: Present: normoactive bowel sounds, no tenderness, no guarding , no organomegaly, obese Integumentary: Present: no rash, warm and dry Neurologic: Present: no focal deficit, no asterixis, alert and oriented x3 Musculoskeletal: Present: no deformities, no erythema, no cyanosis, no clubbing Psychiatric: Present: mood/affect appropriate, cooperative - Lab 07/12/17 03:50 07/12/17 03:50 Most recent lab results Calcium 8.5 mg/dL (8.6-10.8) L 07/12/17 03:50 Phosphorus 3.4 mg/dL (2.3-4.7) 07/12/17 03:50 Magnesium 1.4 mg/dL (1.6-2.6) L 07/12/17 03:50 Urine Creatinine 117 mg/dL 07/10/17 16:18 Urine Sodium 49.0 mEq/L 07/10/17 16:18 Urine Total Protein 51 mg/dL (1-14) H 07/10/17 16:18 Consult Discharge Plan - Plan Referrals: Zeynep Byrnes MD [Primary Care Provider] -
--- NOTE | 2017-07-12 15:44 | Internal Med Progress Note ---
Date of Encounter: 07/12/17 Time of Encounter: 15:42 - Assessment and plan (1) Acute renal failure Current Visit: Yes Status: Acute Qualifiers: Acute renal failure type: unspecified Qualified Code(s): N17.9 - Acute kidney failure, unspecified (2) Metabolic acidosis Current Visit: Yes Status: Acute (3) Diabetes Current Visit: No Status: Chronic Qualifiers: Diabetes mellitus type: type 2 Diabetes mellitus complication status: without complication Diabetes mellitus half-way insulin use: without superintendent terminal use Qualified Code(s): E11.9 - Type 2 diabetes mellitus without complications (4) HTN (hypertension) Current Visit: Yes Status: Chronic Qualifiers: Hypertension type: essential hypertension Qualified Code(s): I10 - Essential (primary) hypertension (5) HLD (hyperlipidemia) Current Visit: Yes Status: Chronic Qualifiers: Hyperlipidemia type: unspecified Qualified Code(s): E78.5 - Hyperlipidemia , unspecified (6) COPD (chronic obstructive pulmonary disease) Current Visit: Yes Status: Chronic Qualifiers: COPD type: unspecified COPD Qualified Code(s): J44.9 - Chronic obstructive pulmonary disease, unspecified - Subjective Interval history: Mr. Chase Varela is a 57-year-old male with past medical history significant for hypertension dyslipidemia and diabetes and stage III CKD. He is admitted with acute on chronic kidney disease. Previously creatinine was normal but now it has mounted up above 3. This morning it has started to come down with IV hydration. His nephrotoxins including lisinopril and metformin, Invokana,and Tradjenta are on hold now. Overall patient seems to stable. Nephrology is consulted Patient is on sliding scale with Accu-Chek 4 times a day as well as his daily blood pressure monitoring. Serum creatinine has come down to 1.29. Retroperitoneal ultrasound is unremarkable. Now we have to adjust his diabetic medication as Invokana will, will not be restarted - Constitutional Vitals: Temp Pulse Resp BP Pulse Ox 97.7 F 69 16 106/61 97 07/12/17 12:03 07/12/17 12:03 07/12/17 12:03 07/12/17 12:03 07/12/17 12:03 General appearance: Present: A&O X 3, answers questions appropriately - Head Head exam: Present: atraumatic, normocephalic - Eye Eye exam: Present: PERRL, conjuntiva pink, sclera anicteric Pupils: Present: PERRL - Neck Neck exam general surgery: Present: supple, trachea midline. Absent: lymphadenopathy - Respiratory Respiratory exam: Present: CTAB. Absent: accessory muscle use, rales, rhonchi, wheezes - Cardiovascular Cardiovascular exam: Present: RRR, +S1, +S2. Absent: diastolic murmur, gallop, rubs, systolic murmur - GI/Abdominal GI/Abdominal exam: Present: normal bowel sounds, soft, no peritoneal signs. Absent: distended, tenderness - Extremities Exam Extremities exam: Present: warm, radial pulses palpable and symmetrical. Absent : calf tenderness, cyanotic, pedal edema - Neurological Exam Neurological exam: Present: CN II-XII intact, oriented X3, no focal deficits. Absent: pronater drift, facial droop, speech deficit - Skin Skin exam: Present: dry, intact Internal Medicine: Result - Labs CBC & Chem 7: 07/12/17 03:50 07/12/17 03:50 Labs: Short CBC 07/12/17 Range/Units 03:50 WBC 3.3 L (4.3-11.1) K/mcL Hgb 10.4 L (12.9-16.9) g/dL Hct 31.6 L (37.5-50.1) % Plt Count 173 (140-400) K/mcL Neutrophils # 1.8 (1.6-8.9) K/mcL BMP 07/12/17 03:50 Sodium 138 Potassium 4.0 Chloride 111 H Carbon Dioxide 20 BUN 27 H Creatinine 1.29 H Glucose 111 H Calcium 8.5 L Liver Function 07/12/17 Range/Units 03:50 Total Bilirubin 0.3 (0.2-1.2) mg/dL AST 32 (5-34) Units/L ALT 37 (0-55) Units/L Alkaline Phosphatase 80 (38-126) Units/L Albumin 2.9 L (3.5-5.0) g/dL Consult Discharge Plan - Plan Referrals: Zeynep Byrnes MD [Primary Care Provider] -
[2017-07-12] MEDS: Mirtazapine 15 MG TABLET PO SCH (21:01)
[2017-07-12] MEDS: Melatonin 3 MG TABLET PO SCH (21:01)
[2017-07-13 05:20] LABS: Basophils % 0.5 %; Eosinophils % 0.3 %; Hematocrit 32.1 % (37.5-50.1); Hemoglobin 10.7 g/dL (12.9-16.9); Immature Granulocytes % 0.5 % (0-4); Immature Platelets 3.1 % (1.1-6.1); Lymphocytes # 1.2 K/mcL (0.6-4.6); Lymphocytes % 31.9 %; Mean Corpuscular HGB Conc 33.3 g/dL (31.6-35.5); Mean Corpuscular Hemoglobin 27.6 pg (28.0-33.3); Mean Corpuscular Volume 82.9 fL (83.0-100.0); Mean Platelet Volume 10.2 fL (9.4-12.4); Monocytes # 0.4 K/mcL (0.0-1.3); Monocytes % 9.9 %; Neutrophils # 2.1 K/mcL (1.6-8.9); Platelet Count 205 K/mcL (140-400); Red Blood Count 3.87 M/mcL (4.19-5.50); Red Cell Distribution Width 14.3 % (11.5-14.5); Segmented Neutrophils % 56.9 %
[2017-07-13 05:34] LABS: Alanine Aminotransferase 41 Units/L (0-55); Albumin 3.1 g/dL (3.5-5.0); Alkaline Phosphatase 82 Units/L (38-126); Aspartate Amino Transferase 38 Units/L (5-34); BUN/Creatinine Ratio 18 (6-26); Bilirubin,Total 0.3 mg/dL (0.2-1.2); Blood Urea Nitrogen 21 mg/dL (8-26); Calcium 8.6 mg/dL (8.6-10.8); Carbon Dioxide 24 mEq/L (19-29); Chloride 109 mEq/L (98-109); Globulin 3.2 g/dL (2.4-3.5); Glucose 116 mg/dL (70-99); Magnesium 1.9 mg/dL (1.6-2.6); Osmolality,Calculated 292 (280-300); Phosphorous 3.3 mg/dL (2.3-4.7); Sodium 139 mEq/L (136-145); Total Protein 6.3 g/dL (6.0-8.3); eGFR For African Americans > 60 (> 60); eGFR For Non-African Americans > 60 (> 60)
[2017-07-13 05:37] LABS: Hemoglobin A1C 6.2 %
[2017-07-13] MEDS: *HR* Heparin 5,000 UNIT/ML VIAL SQ SCH (06:15)
[2017-07-13] MEDS: Insulin LISPRO 300 UNITS/3 ML VIAL SQ SCH ×2 (07:26→11:55)
[2017-07-13] MEDS: Budesonide/Formoterol 160/4.5 MDI IH SCH (10:08)
[2017-07-13 11:19] VITALS: BP 107/62
--- NOTE | 2017-07-13 12:22 | Discharge Summary ---
Date of Encounter: 07/13/17 Time of Encounter: 12:18 - Discharge Diagnosis (1) Acute renal failure Priority: Primary Status: Acute Qualifiers: Acute renal failure type: unspecified Qualified Code(s): N17.9 - Acute kidney failure, unspecified (2) Metabolic acidosis Priority: Secondary Status: Acute (3) Diabetes Priority: Secondary Status: Chronic Qualifiers: Diabetes mellitus type: type 2 Diabetes mellitus complication status: without complication Diabetes mellitus fdc insulin use: without manager terminal use Qualified Code(s): E11.9 - Type 2 diabetes mellitus without complications (4) HTN (hypertension) Priority: Secondary Status: Chronic Qualifiers: Hypertension type: essential hypertension Qualified Code(s): I10 - Essential (primary) hypertension (5) HLD (hyperlipidemia) Priority: Secondary Status: Chronic Qualifiers: Hyperlipidemia type: unspecified Qualified Code(s): E78.5 - Hyperlipidemia , unspecified (6) COPD (chronic obstructive pulmonary disease) Priority: Secondary Status: Chronic Qualifiers: COPD type: unspecified COPD Qualified Code(s): J44.9 - Chronic obstructive pulmonary disease, unspecified - Discharge Medications Prescriptions: metFORMIN [Glucophage] 500 mg PO DAILY #30 tablet Home Medications: Albuterol Sulfate [Ventolin Hfa] 2 puff IH Q4H PRN 08/05/15 [History] Budesonide/Formoterol 160/4.5 [Symbicort] 2 puff IH BIDR 08/05/15 [History] Cholecalciferol (Vitamin D3) [Vitamin D3] 2,000 unit PO BID 08/05/15 [History] Clopidogrel [Plavix] 75 mg PO QAM 08/05/15 [History] Loratadine [Claritin] 10 mg PO QAM 08/05/15 [History] EPINEPHrine [Epipen] 0.3 mg IM ONCE PRN 10/01/16 [History] Omeprazole [PriLOSEC] 40 mg PO DAILY 10/01/16 [History] Lovastatin 80 mg PO HS 07/10/17 [History] Mirtazapine [Remeron] 15 mg PO HS 07/10/17 [History] Propylene Glycol/Peg 400 [Systane 0.3-0.4% Eye Drops] 1 drop OP Q6H PRN [History] Sertraline [Zoloft] 200 mg PO DAILY 07/10/17 [History] metFORMIN [Glucophage] 500 mg PO DAILY #30 tablet 07/13/17 [Rx] Allergies/Adverse Reactions: 3 Allergy/AdvReac Type Severity Reaction Status Date / Time aspirin Allergy Anaphylaxis Verified 07/10/17 12:28 Bee Pollen Allergy Anaphylaxis Verified 07/10/17 12:28 naproxen [From Aleve] Allergy Anaphylaxis Verified 07/10/17 12:28 spider venom Allergy Swelling Verified 07/10/17 12:28 of Lip/Tongue/Throat Procedures/tests Complete & Pending: Procedures Performed prior 72 hours Category Date Time Status retroperitoneal ultrasound - limited [US Exams 07/10/17 18:00 Completed retroperitoneal limited] [US] Routine Date of admission: 07/10/17 16:12 Primary care physician: Zeynep Salcedo Consults: 07/10/17 16:22 Consult to Nephrology [CONS] Routine Consulting Provider: Kidney Khadra/CHRISTOS/HUMA/TIMOTHY Reason for Consult: SID Time Notified: 16:22 Call Completed: Yes - Patient Status Disposition: Home, Self-Care Condition: Good Overall status at discharge: patient is progressing back to baseline - Discharge Instructions Instructions: Chronic Obstructive Pulmonary Disease (DC), Chronic Hypertension (DC) Follow Up With: Lenka Singh MD [Non-Partnered Physician] - Zeynep Byrnes MD [Primary Care Provider] - - Diet and Activity Activity: resume usual activities as tolerated Diet: diabetic diet, low fat, low cholesterol, low salt diet Hospital course: Mr. Chase Varela is a 57-year-old male with past medical history significant for hypertension dyslipidemia and diabetes and stage III CKD. He is admitted with acute on chronic kidney disease. Previously creatinine was normal but on admission it was up above 3. Nephrotoxin medicine including lisinopril and metformin Lasix Invokana,and Tradjenta put on hold and now his creatinine is normal. His blood pressure is borderline at the best and his blood sugars are normal even without any diabetic medicine. In last 24 hour he has received only 3 units of insulin. His hemoglobin A1c is 6.6. We will put him on very low-dose Glucophage met 500 daily. This will help his weight loss also. - Time Spent with Patient Total time spent providing and/or coordinating discharge services: Greater than 30 minutes - Constitutional Vitals: Temp Pulse Resp BP Pulse Ox 97.5 F L 74 17 107/62 95 07/13/17 11:15 07/13/17 11:15 07/13/17 11:15 07/13/17 11:15 07/13/17 11:15 General appearance: Present: A&O X 3, answers questions appropriately - Head Head exam: Present: atraumatic, normocephalic - Eye Eye exam: Present: PERRL, conjuntiva pink, sclera anicteric Pupils: Present: PERRL - Neck Neck exam general surgery: Present: supple, trachea midline. Absent: lymphadenopathy - Respiratory Respiratory exam: Present: CTAB. Absent: accessory muscle use, rales, rhonchi, wheezes - Cardiovascular Cardiovascular exam: Present: RRR, +S1, +S2. Absent: diastolic murmur, gallop, rubs, systolic murmur - GI/Abdominal GI/Abdominal exam: Present: normal bowel sounds, soft, no peritoneal signs. Absent: distended, tenderness - Extremities Exam Extremities exam: Present: warm, radial pulses palpable and symmetrical. Absent : calf tenderness, cyanotic, pedal edema - Neurological Exam Neurological exam: Present: CN II-XII intact, oriented X3, no focal deficits. Absent: pronater drift, facial droop, speech deficit - Skin Skin exam: Present: dry, intact
== END 2017-07-13 12:55 | disposition home or self-care (01) | DRG 683 ==
LOC: EMEROO 12:26 → 2ANU 12:26
PROVIDERS: ADMIT Internal Medicine; ATTEND Internal Medicine

== ENCOUNTER 2017-11-23 08:56 | Inpatient (IN) ==
--- NOTE | 2017-11-23 09:42 | Cardiology Consult Note ---
Date of Encounter: 11/23/17 Time of Encounter: 09:40 Assessment and Plan (1) Complete heart block Current Visit: Yes Status: Acute Hemo stable, mild symptoms without syncope. Limited TTE, plan for PPM tomorrow. Adequate junctional escape rhythm 60, he is unlikely to decompensate. HE denies CCB/BB and clinical manifestations of lymes. He has a marked 1st AV block last year on EKG, so this is likely progression of underlying conduction system disease. Transcutaneous pacer pads on with backup HR 40 and atropine at bedside. If he becomes hypotensive, start dopamine. Would like to avoid temporary wire, as that is the preference from EP when placing a PPM. (2) Mild CAD Current Visit: Yes Status: Acute Plavix (asa allergic). Discussion w patient/family: The assessment and plan as outlined above was discussed with the patient and/or family members who expressed understanding and agreement. All questions were answered. Thank you for involving us in the care of your patient. Please call with any questions. History of Present Illness Consult date: 11/23/17 History of present illness: Mr. Varela is a 57 year old male with minimal CAD by previous LHC, marked first degree AV block on EKG last year, TTE 2014 nml EF with mild diastolic dysfunction, diastolic CHF here with progressive dyspnea over last couple of weeks. It is exacerbated by exertion and improved with rest. No chest/jaw/arm discomfort, syncope or presyncope. He notes orthopnea but no marked edema. ED consulted me for abnormal EKG and it appears to be complete heart block ( underlying SR w unconducted PAC) and junctional escape rhythm of 60. He denies BB/CCB use and no history of tick bites/rashes/fevers/chills. Past Med Surg Social Fam HX - Past Medical History Medical history: asthma, CHF, COPD, coronary artery disease, DVT, diabetes, GERD , hyperlipidemia, hypertension, other Psychiatric history: depression - Past Surgical History Surgical History: appendectomy, cholecystectomy - Social History Smoking Status: Never smoker Smokeless Tobacco Status: No Alcohol use: none Drug use: none - Family History Mother Adopted: Yes Medications and Allergies Albuterol Sulfate [Ventolin Hfa] 2 puff IH Q4H PRN 08/05/15 [History] Budesonide/Formoterol 160/4.5 [Symbicort] 2 puff IH BIDR 10/24/15 [History] Cholecalciferol (Vitamin D3) [Vitamin D3] 2,000 unit PO BID 08/05/15 [History] Clopidogrel [Plavix] 75 mg PO QAM 08/05/15 [History] Loratadine [Claritin] 10 mg PO QAM 08/05/15 [History] EPINEPHrine [Epipen] 0.3 mg IM ONCE PRN 10/01/16 [History] Omeprazole [PriLOSEC] 40 mg PO DAILY 10/01/16 [History] Lovastatin 80 mg PO HS 07/10/17 [History] Mirtazapine [Remeron] 15 mg PO HS 07/10/17 [History] Propylene Glycol/Peg 400 [Systane 0.3-0.4% Eye Drops] 1 drop OP Q6H PRN [History] Sertraline [Zoloft] 200 mg PO DAILY 07/10/17 [History] metFORMIN [Glucophage] 500 mg PO DAILY #30 tablet 07/13/17 [Rx] HYDROcodone/Acet 5/325 mg [[place] 5-325 mg] 1 tab PO Q4H PRN #6 tab 10/09/17 [Rx] Ciprofloxacin OPTH Soln [Ciloxan OPTH Soln] 2 drop RIGHT EYE Q6HR 5 Days #1 bottle 11/09/17 [Rx] 3 Allergy/AdvReac Type Severity Reaction Status Date / Time aspirin Allergy Anaphylaxis Verified 11/09/17 04:31 Bee Pollen Allergy Anaphylaxis Verified 11/09/17 04:31 naproxen [From Aleve] Allergy Anaphylaxis Verified 11/09/17 04:31 spider venom Allergy Swelling Verified 11/09/17 04:31 of Lip/Tongue/Throat All Systems Review: A 10-system review of systems was performed and is negative for pertinent findings except as documented above in the HPI. - Constitutional Constitutional: no chills, no fever(s) - EENT Eyes: no blurred vision, no loss of vision Nose, mouth and throat: no dysphagia, no epistaxis - Cardiovascular Cardiovascular: dyspnea at rest, dyspnea on exertion, slow heart rate, no chest pain at rest, no chest pain with exertion - Respiratory Respiratory: no hemoptysis, no wheezing - Gastrointestinal Gastrointestinal: no hematemesis, no hematochezia - Genitourinary Genitourinary: no hematuria, no nocturia - Musculoskeletal Musculoskeletal: no arthralgias, no myalgias - Integumentary Integumentary: no rash, no unusual bruising - Neurological Neurological: no memory loss, no syncope - Psychiatric Psychiatric: no depression, no panic attacks - Hematological/Lymphatic Hematologic/Lymphatic: no easy bleeding, no easy bruising Physical Examination Vital Signs, Last 4 Hours Temp Pulse Resp BP Pulse Ox 11/23/17 09:35 67 16 171/78 97 11/23/17 09:12 96 11/23/17 08:59 98.1 F 61 20 138/75 95 General: Conversant HEENT: Atraumatic Neck: No JVD Cardiac: Reg Rate and Rhythm Lungs: Normal Breath Sounds Neuro: Alert and responsive Abdomen: Soft Skin: No rashes noted on visualized skin Musculoskeletal: No Chest Wall Tenderness Extremities: No Edema Results - EKG Interpretation EKG results cardiology: personally reviewed, no diagnostic ischemia (complete heart block. underlying SR with nonconducted PAC. junctional escape rhythm) Consult Discharge Plan - Plan Referrals: Lenka Singh MD [Primary Care Provider] -
--- NOTE | 2017-11-23 09:44 | Emergency Department Note ---
Disposition Clinical Impression: Shortness of breath, Complete heart block Disposition: Admitted As Inpatient Condition: Good Referrals: Lenka Singh MD [Primary Care Provider] - Time of Disposition: 10:23 General Adult HPI - General Chief complaint: ED Shortness of Breath/Dyspnea Stated complaint: SOB Time Seen by Provider: 11/23/17 09:00 Source: patient, EMS Limitations: no limitations Nursing Notes Reviewed: Yes Vital Signs Reviewed: Yes - History of Present Illness HPI Narrative: Patient is a 57-year-old male that presents to the emergency department for shortness of breath. States this is been ongoing for the past couple of weeks and has progressively gotten worse over the past couple of days. Patient denies any chest pain, abdominal pain or any other symptoms. Patient states that he tried taking a breathing treatment at home but this has not provided any relief. Patient denies taking any antiarrhythmic medications or having any previous cardiac arrhythmias. Patient states that he has had previous catheterizations but has never had a stent placed. Pain Scale: 4 - Related Data Home Medications Medication Instructions Recorded Confirmed Albuterol Sulfate [Ventolin Hfa] 2 puff IH Q4H PRN 08/05/15 07/10/17 Budesonide/Formoterol 160/4.5 2 puff IH BIDR 08/05/15 07/10/17 [Symbicort] Cholecalciferol (Vitamin D3) 2,000 unit PO BID 08/05/15 07/10/17 [Vitamin D3] Clopidogrel [Plavix] 75 mg PO QAM 08/05/15 07/10/17 Loratadine [Claritin] 10 mg PO QAM 08/05/15 07/10/17 EPINEPHrine [Epipen] 0.3 mg IM ONCE PRN 10/01/16 07/10/17 Omeprazole [PriLOSEC] 40 mg PO DAILY 10/01/16 07/10/17 Lovastatin 80 mg PO HS 07/10/17 07/10/17 Mirtazapine [Remeron] 15 mg PO HS 07/10/17 07/10/17 Propylene Glycol/Peg 400 [Systane 1 drop OP Q6H PRN 07/10/17 07/10/17 0.3-0.4% Eye Drops] Sertraline [Zoloft] 200 mg PO DAILY 07/10/17 07/10/17 Previous Rx's Medication Instructions Recorded metFORMIN [Glucophage] 500 mg PO DAILY #30 tablet 07/13/17 Allergies Allergy/AdvReac Type Severity Reaction Status Date / Time aspirin Allergy Anaphylaxis Verified 11/09/17 04:31 Bee Pollen Allergy Anaphylaxis Verified 11/09/17 04:31 naproxen [From Aleve] Allergy Anaphylaxis Verified 11/09/17 04:31 spider venom Allergy Swelling Verified 11/09/17 04:31 of Lip/Tongue/Throat All systems ED: reviewed and negative except as stated. Cardiovascular: Denies: chest pain Respiratory: Reports: dyspnea Gastrointestinal: Denies: abdominal pain Past Medical History - Past Medical History Medical history: Reports: asthma, CHF, COPD, coronary artery disease, DVT, diabetes, GERD, hyperlipidemia, hypertension, other Surgical history: Reports: appendectomy, cholecystectomy Psychiatric history: Reports: depression - Social History Smoking Status: Never smoker Smokeless Tobacco Status: No Alcohol use: Reports: none Drug use: Reports: none Physical Exam - General Limitations: no limitations General appearance: alert, in no apparent distress - Head Head exam: atraumatic, normocephalic - Eye Eye exam: Present: normal appearance, EOMI - Neck Neck exam: Present: normal inspection, full ROM, trachea midline - Respiratory Respiratory exam: Present: normal lung sounds bilaterally. Absent: respiratory distress, wheezes - Cardiovascular Cardiovascular exam: Present: normal rhythm, bradycardia, normal heart sounds, + S1, +S2 - Abdominal Exam Abdominal exam: Present: soft, Non-Tender, normal bowel sounds - Neurological Exam Neurological exam: Present: alert, oriented X3 - Psychiatric Psychiatric exam: Present: normal affect, normal mood - Skin Skin exam: Present: warm, dry, intact Course Vital Signs Temperature 98.1 F 11/23/17 08:59 Pulse Rate 61 11/23/17 08:59 Respiratory Rate 20 11/23/17 08:59 Blood Pressure 138/75 11/23/17 08:59 O2 Sat by Pulse Oximetry 95 11/23/17 08:59 Temperature 98.1 F 11/23/17 08:59 Pulse Rate 84 11/23/17 10:12 Respiratory Rate 16 11/23/17 10:12 Blood Pressure 129/79 11/23/17 10:12 O2 Sat by Pulse Oximetry 96 11/23/17 10:12 Oxygen Delivery Oxygen Delivery Room Air Medical Decision Making - MDM Narrative Medical decision making narrative: Due to the patient presenting with shortness of breath we will obtain a CBC, BMP , troponin, chest x-ray and EKG. The EKG appeared to have a possible third- degree block. We called and spoke with the on-call social service liaison Dr. Monteiro and he came down to review the EKG and states that this is in fact third-degree block. Once that this was identified as third-degree heart block pacer pads were placed on the patient and atropine was available at bedside. Cardiology evaluated the patient at bedside. The patient will need to be admitted to the hospital for further evaluation and management as well as a possible pacemaker. Chest x-ray showed mild pulmonary congestion which could be consistent with mild congestive heart failure. Patient's troponin is negative. Patient has a chronic anemia. I called and spoke with the hospitalist negative except for the patient to their service. The patient will be admitted to the hospital for further evaluation and management. - Lab Data Lab results reviewed: Yes I reviewed the patient's lab results. Result diagrams: 11/23/17 09:37 11/23/17 09:37 Lab Results 11/23/17 11/23/17 11/23/17 Range/Units 09:37 09:37 09:37 WBC 7.2 (4.3-11.1) K/mcL RBC 4.24 (4.19-5.50) M/mcL Hgb 10.0 L (12.9-16.9) g/dL Hct 33.5 L (37.5-50.1) % MCV 79.0 L (83.0-100.0) fL MCH 23.6 L (28.0-33.3) pg MCHC 29.9 L (31.6-35.5) g/dL RDW 14.9 H (11.5-14.5) % Plt Count 173 (140-400) K/mcL MPV 11.6 (9.4-12.4) fL Immature Gran % 0.6 (0-4) % Seg Neutrophils % 74.5 % Lymphocytes % 14.3 % Monocytes % 7.5 % Eosinophils % 2.5 % Basophils % 0.6 % Neutrophils # 5.4 (1.6-8.9) K/mcL Lymphocytes # 1.0 (0.6-4.6) K/mcL Monocytes # 0.5 (0.0-1.3) K/mcL Eosinophils # 0.2 (0.0-0.6) K/mcL Basophils # 0.0 (0.0-0.2) K/mcL PT 11.7 (9.4-12.1) Seconds INR 1.1 APTT 31.7 (26.0-36.0) Seconds Sodium 138 (136-145) mEq/L Potassium 3.7 (3.5-5.1) mEq/L Chloride 108 H (98-107) mEq/L Carbon Dioxide 24 (23-29) mEq/L BUN 18 (6-20) mg/dL Creatinine 1.15 (0.70-1.30) mg/dL Est GFR ( Amer) > 60 (> 60) Est GFR (Non-Af Amer) > 60 (> 60) BUN/Creatinine Ratio 16 (6-26) Glucose 186 H (70-105) mg/dL Calculated Osmolality 293 (280-300) Calcium 8.9 (8.6-10.3) mg/dL Troponin I (< 0.04) ng/mL B-Natriuretic Peptide (Less than 100) pg/mL 11/23/17 11/23/17 Range/Units 09:37 09:37 WBC (4.3-11.1) K/mcL RBC (4.19-5.50) M/mcL Hgb (12.9-16.9) g/dL Hct (37.5-50.1) % MCV (83.0-100.0) fL MCH (28.0-33.3) pg MCHC (31.6-35.5) g/dL RDW (11.5-14.5) % Plt Count (140-400) K/mcL MPV (9.4-12.4) fL Immature Gran % (0-4) % Seg Neutrophils % % Lymphocytes % % Monocytes % % Eosinophils % % Basophils % % Neutrophils # (1.6-8.9) K/mcL Lymphocytes # (0.6-4.6) K/mcL Monocytes # (0.0-1.3) K/mcL Eosinophils # (0.0-0.6) K/mcL Basophils # (0.0-0.2) K/mcL PT (9.4-12.1) Seconds INR APTT (26.0-36.0) Seconds Sodium (136-145) mEq/L Potassium (3.5-5.1) mEq/L Chloride (98-107) mEq/L Carbon Dioxide (23-29) mEq/L BUN (6-20) mg/dL Creatinine (0.70-1.30) mg/dL Est GFR ( Amer) (> 60) Est GFR (Non-Af Amer) (> 60) BUN/Creatinine Ratio (6-26) Glucose (70-105) mg/dL Calculated Osmolality (280-300) Calcium (8.6-10.3) mg/dL Troponin I < 0.03 (< 0.04) ng/mL B-Natriuretic Peptide 445 H (Less than 100) pg/mL - Radiology Data Radiology results reviewed: Yes I reviewed the patient's radiology results. Chest X-Ray 11/23/17 09:25 IMPRESSION: New pulmonary vascular congestion which may represent developing mild CHF D/ / Jj Riley MD / Jj Riley MD Interpreting Provider: Jj Riley MD - EKG Data EKG #1 EKG attestation: Yes I reviewed and interpreted this EKG. EKG results narrative: EKG showed a third-degree heart block at a rate of 59 bpm, QRS duration of 81, QTc of 414 with a normal axis. This is compared to previous EKG on 07/10/17 which showed a sinus rhythm with a first-degree AV block at a rate of 74 bpm. Cardiology came and reviewed this EKG and stated that this is a third-degree heart block. Critical Care Time Critical Care Time: Yes Total Critical Care Time: 35 Attestation: Critical care performed: Time is exclusive of separately billable procedures. Time includes: direct patient care, patient reassessment, coordination of patient care, interpretation of data (laboratory data, radiology data, and respiratory data), review of patient's medical records, medical consultation and documentation of patient care. Procedures included in critical care time: Procedures excluded from critical care time: Attestation Statement - Attestation Attestation: I, Aleks Wilkinson DO, examined this patient [id number] and my medical decision-making was reviewed with Dr. Gadiel Denton, Resident Physician. I agree with the documented findings, disposition and treatment plan as described except to the extent set forth below. Please see my progress notes for details. 49-year-old male presents to emergency room with complaint of shortness of breath. He said this and is progressively coming on over the last several days. Currently is denying chest pain fevers chills nausea vomiting or diarrhea. Denies any headache or vision change. His main complaint is shortness of breath. Patient has never had anything like this before. Denies any recent illnesses or trauma. Has not started any new medications. Patient physical exam patient is resting in the bed was not exerting. He does not have any acute respiratory distress but does get conversationally dyspneic when he has prolonged conversations. EKG was concerning initially and cardiology was consulted immediately. The rhythm is not consistent specifically with a second- degree or third-degree heart block but after a lengthy discussion with Dr. Monteiro at the bedside is determined that the patient has a third-degree heart block with escape rhythm. Patient will be admitted to the hospitalist service with recommendation for cardiac pacemaker to be placed in the next 24 hours. The shop tailor was placed at the bedside and pacer pads were applied. Patient does not currently need any intervention. His vital signs are stable and his ventricular rate is in the 50s to 70s. Patient otherwise has some mild respiratory distress which could be consistent with pulmonary congestion secondary to the heart related issues. Chest x-ray does show mild vascular congestion but will not treat at this point considering he may be volume dependent for his blood pressure secondary to the arrhythmia. Patient will be admitted for definitive management. 35 minutes of critical care will be applied secondary to the critical cardiac rhythm. Patient is otherwise stable. Consultations are placed. Labs are pending. [id number] contacted this time. No other acute issues noted. No recommendations or issues at this time patient will be admitted for definitive management.
[2017-11-23 09:46] LABS: Basophils % 0.6 %; Eosinophils # 0.2 K/mcL (0.0-0.6); Eosinophils % 2.5 %; Hematocrit 33.5 % (37.5-50.1); Immature Granulocytes % 0.6 % (0-4); Lymphocytes % 14.3 %; Mean Corpuscular HGB Conc 29.9 g/dL (31.6-35.5); Mean Corpuscular Hemoglobin 23.6 pg (28.0-33.3); Mean Platelet Volume 11.6 fL (9.4-12.4); Monocytes # 0.5 K/mcL (0.0-1.3); Monocytes % 7.5 %; Neutrophils # 5.4 K/mcL (1.6-8.9); Platelet Count 173 K/mcL (140-400); Red Blood Count 4.24 M/mcL (4.19-5.50); Red Cell Distribution Width 14.9 % (11.5-14.5); Segmented Neutrophils % 74.5 %
[2017-11-23 10:01] LABS: INR 1.1; Prothrombin Time 11.7 Seconds (9.4-12.1)
[2017-11-23 10:03] LABS: Activated Partial Thrombo Time 31.7 Seconds (26.0-36.0)
[2017-11-23 10:05] LABS: BUN/Creatinine Ratio 16 (6-26); Blood Urea Nitrogen 18 mg/dL (6-20); Calcium 8.9 mg/dL (8.6-10.3); Carbon Dioxide 24 mEq/L (23-29); Chloride 108 mEq/L (98-107); Glucose 186 mg/dL (70-105); Osmolality,Calculated 293 (280-300); Potassium 3.7 mEq/L (3.5-5.1); Sodium 138 mEq/L (136-145); eGFR For African Americans > 60 (> 60); eGFR For Non-African Americans > 60 (> 60)
[2017-11-23] MEDS ORDERED: Perflutren Lipid Microsphere 1.3 ML in 0.9 % Sodium Chloride 8.7 ML IVP ONE (10:48)
--- NOTE | 2017-11-23 11:22 | Internal Med History&Physical ---
Date of Encounter: 11/23/17 Time of Encounter: 11:13 Assessment and Plan (1) Acute exacerbation of congestive heart failure Current visit: Yes Status: Acute Based on clinical presentation. Supported by chst x-ray and BNP findings. He was on Lasix several months ago, but was discontinued after he was admitted for acute renal failure. Patient renal function normal at this point, upper normal limit creatinine and GFR is >60. He will need diuresed. Will give Lasix 20 mg IV BID and monitor I/O, daily weights, 2 L fluid restrict. Cardiac/Diabetic diet. Qualifiers: Heart failure type: diastolic Qualified Code(s): I50.33 - Acute on chronic diastolic (congestive) heart failure (2) Complete heart block Current visit: Yes Status: Acute Cardiology has been consulted and evaluated patient. Recommendations are appreciated. Patient not on any CC, CCB. - planned for TTE in AM - Likely PPM - TCP on patient currently - Atropine prn - If hypotensive, start dopamine. - NPO at midnight. (3) Mild CAD Current visit: Yes Status: Acute Plavix, lovastatin. (4) COPD (chronic obstructive pulmonary disease) Current visit: No Status: Chronic Not in acute exacerbation, resume home medications, duo neb prn. Qualifiers: COPD type: unspecified COPD Qualified Code(s): J44.9 - Chronic obstructive pulmonary disease, unspecified (5) Diabetes Current visit: No Status: Chronic Hold metformin. Insulin sliding scale, accuchecks AC and HS. Qualifiers: Diabetes mellitus type: type 2 Diabetes mellitus complication status: without complication Diabetes mellitus long term care social worker insulin use: without nursing home use Qualified Code(s): E11.9 - Type 2 diabetes mellitus without complications (6) HLD (hyperlipidemia) Current visit: No Status: Chronic Lovastatin Qualifiers: Hyperlipidemia type: unspecified Qualified Code(s): E78.5 - Hyperlipidemia , unspecified (7) HTN (hypertension) Current visit: No Status: Chronic No home medications. Did have one episode elevated BP. WIll place prn medication as patient does not have any listed antihypertensive at home. Qualifiers: Hypertension type: essential hypertension Qualified Code(s): I10 - Essential (primary) hypertension (8) Obstructive sleep apnea Current visit: No Status: Chronic bipap at night (9) GERD (gastroesophageal reflux disease) Current visit: Yes Status: Acute Qualifiers: Esophagitis presence: esophagitis presence not specified Qualified Code(s) : K21.9 - Gastro-esophageal reflux disease without esophagitis (10) Diastolic heart failure Current visit: Yes Status: Acute Management as above. Qualifiers: Heart failure chronicity: acute on chronic Qualified Code(s): I50.33 - Acute on chronic diastolic (congestive) heart failure (11) Weakness Current visit: Yes Status: Acute PT/OT (12) DVT prophylaxis Current visit: No Status: Acute heparin 5,000 units SQ Internal Medicine - H&P: HPI Chief complaint: Dyspnea History of present illness: Mr. Varela is a 57 year old male with history of HFpEF (TTE 2014), CAD, COPD, h/ o DVT, DM, DOROTHY on bipap, CKD presented for dyspnea. Started several weeks ago now worsening. Patient has previously needed Lasix but was discontinued after recent admission for SID. Patient denied extremity edema. Did complain of some orthopnea. States that he has not worn bipap at night for several days now. He admits to DANIEL, elvin. Takes Plavix and lovastatin at home and states he takes as prescribed. Has chronic diabetes neuropathy at baseline. Denies chest pain, syncope, N/V, diaphoresis, palpitations. In ED, chest xray showed pulmonary vascular congestion, and BNP was elevated in 400s. Troponin was negative times one. An ECG showed complete heat block. He does not take any BB or CCB. Cardiology has been consulted and evaluated patient. He has transcutaneous pacer pads placed in ED with atropine listed to be used as needed. Past Med Surg Social Fam HX - Past Medical History Medical history: asthma, CHF, COPD, coronary artery disease, DVT, diabetes, GERD , hyperlipidemia, hypertension, other Psychiatric history: depression - Past Surgical History Surgical History: appendectomy, cholecystectomy - Social History Smoking Status: Never smoker Smokeless Tobacco Status: No Alcohol use: none Drug use: none - Family History Mother Adopted: Yes Internal Medicine - H&P: Meds Albuterol Sulfate [Ventolin Hfa] 2 puff IH Q4H PRN 08/05/15 [History] Budesonide/Formoterol 160/4.5 [Symbicort] 2 puff IH BIDR 08/05/15 [History] Cholecalciferol (Vitamin D3) [Vitamin D3] 2,000 unit PO BID 08/05/15 [History] Clopidogrel [Plavix] 75 mg PO QAM 08/05/15 [History] Loratadine [Claritin] 10 mg PO QAM 08/05/15 [History] EPINEPHrine [Epipen] 0.3 mg IM ONCE PRN 10/01/16 [History] Omeprazole [PriLOSEC] 40 mg PO DAILY 10/01/16 [History] Lovastatin 80 mg PO HS 07/10/17 [History] Mirtazapine [Remeron] 15 mg PO HS 07/10/17 [History] Propylene Glycol/Peg 400 [Systane 0.3-0.4% Eye Drops] 1 drop OP Q6H PRN [History] Sertraline [Zoloft] 200 mg PO DAILY 07/10/17 [History] metFORMIN [Glucophage] 500 mg PO DAILY #30 tablet 07/13/17 [Rx] 3 Allergy/AdvReac Type Severity Reaction Status Date / Time aspirin Allergy Anaphylaxis Verified 11/09/17 04:31 Bee Pollen Allergy Anaphylaxis Verified 11/09/17 04:31 naproxen [From Aleve] Allergy Anaphylaxis Verified 11/09/17 04:31 spider venom Allergy Swelling Verified 11/09/17 04:31 of Lip/Tongue/Throat All Systems PM: A 10-system review of systems was performed and is negative for pertinent findings except as documented above in the HPI. - Constitutional Constitutional: weakness, no anorexia, no chills, no excessive sweating, no fever(s), no lethargy, no night sweats - EENT Eyes: no change in vision, no diplopia, no loss of vision, no photophobia Nose, mouth and throat: no dysphagia, no epistaxis, no lip swelling, no mouth pain - Cardiovascular Cardiovascular ROS IM: orthopnea, no chest pain, no diaphoresis, no edema, no irregular heart rhythm, no lightheadedness, no palpitations, no paroxysmal nocturnal dyspnea, no syncope - Respiratory Respiratory: dyspnea, dyspnea on exertion, no cough, no hemoptysis, no wheezing , no snoring, no stridor, no pain on inspiration, no chest congestion - Gastrointestinal Gastrointestinal: no abdominal pain, no constipation, no diarrhea, no hematochezia, no melena, no nausea, no vomiting - Integumentary Integumentary IM: no new lesions, no jaundice - Neurological Neurological ROS: no confusion, no headache(s), no tremor(s), no vertigo - Constitutional Vitals: Temp Pulse Resp BP Pulse Ox 98.1 F 84 16 129/79 96 11/23/17 08:59 11/23/17 10:12 11/23/17 10:12 11/23/17 10:12 11/23/17 10:12 General appearance: Present: A&O X 3, pleasant, no acute distress, answers questions appropriately - Respiratory Respiratory exam: Present: CTAB. Absent: accessory muscle use, chest wall tenderness, decreased breath sounds, prolonged expiratory phase, rales, respiratory distress, rhonchi, stridor, wheezes, tachypnea - Cardiovascular Cardiovascular exam: Present: RRR, +S1, +S2. Absent: diastolic murmur, gallop, rubs, systolic murmur - Extremities Exam Additional comments: trace bipedal edema - Neurological Exam Neurological exam: Present: CN II-XII intact, oriented X3, no focal deficits. Absent: pronater drift, facial droop, speech deficit Internal Med - H&P Results - Labs CBC & Chem 7: 11/23/17 09:37 11/23/17 09:37
[2017-11-23] MEDS ORDERED: *HR* HYDROcodone/Acet 5/325 mg TABLET PO PRN (11:42)
[2017-11-23] MEDS ORDERED: Acetaminophen 325 MG TABLET PO PRN (11:42)
[2017-11-23] MEDS ORDERED: Naloxone 0.4 MG/ML INJ IVP PRN (11:42)
[2017-11-23] MEDS ORDERED: Ondansetron 4 MG/2 ML VIAL IVP PRN (11:55)
[2017-11-23] MEDS ORDERED: Nitroglycerin 0.4 MG TAB.SUBL SL PRN (11:55)
[2017-11-23] MEDS ORDERED: *HR* EPINEPHrine 0.3 MG/0.3 ML (PEN) IM PRN (12:03)
[2017-11-23] MEDS ORDERED: Artificial Tears SOLN 15 ML BOTTLE OP PRN (12:03)
[2017-11-23] MEDS ORDERED: *HR* Atropine Sulfate 1 MG/10 ML SYRINGE IVP PRN (12:12)
[2017-11-23] MEDS: Ipratropium/Albuterol Neb 3 ML IH SCH ×3 (13:40→19:51)
[2017-11-23] MEDS: Insulin LISPRO 300 UNITS/3 ML VIAL SQ SCH ×3 (13:47→21:11)
[2017-11-23] MEDS: Furosemide 20 MG/2 ML VIAL IVP SCH ×2 (14:05→21:05)
[2017-11-23] MEDS: *HR* Heparin 5,000 UNIT/ML VIAL SQ SCH (18:00)
[2017-11-23] MEDS: Budesonide/Formoterol 160/4.5 MDI IH SCH (19:51)
[2017-11-23] MEDS: Mirtazapine 15 MG TABLET PO SCH (21:04)
[2017-11-24] MEDS: Ipratropium/Albuterol Neb 3 ML IH SCH ×6 (00:18→19:52)
[2017-11-24 03:49] LABS: Basophils % 0.6 %; Eosinophils # 0.2 K/mcL (0.0-0.6); Eosinophils % 2.1 %; Hematocrit 31.8 % (37.5-50.1); Hemoglobin 9.9 g/dL (12.9-16.9); Immature Granulocytes % 0.3 % (0-4); Lymphocytes # 1.2 K/mcL (0.6-4.6); Lymphocytes % 16.7 %; Mean Corpuscular HGB Conc 31.1 g/dL (31.6-35.5); Mean Corpuscular Hemoglobin 23.8 pg (28.0-33.3); Mean Corpuscular Volume 76.4 fL (83.0-100.0); Mean Platelet Volume 12.5 fL (9.4-12.4); Monocytes # 0.6 K/mcL (0.0-1.3); Monocytes % 8.9 %; Neutrophils # 5.1 K/mcL (1.6-8.9); Platelet Count 172 K/mcL (140-400); Red Blood Count 4.16 M/mcL (4.19-5.50); Segmented Neutrophils % 71.4 %
[2017-11-24 05:47] LABS: BUN/Creatinine Ratio 14 (6-26); Blood Urea Nitrogen 19 mg/dL (6-20); Calcium 8.8 mg/dL (8.6-10.3); Carbon Dioxide 26 mEq/L (23-29); Chloride 103 mEq/L (98-107); Chol/HDL Ratio 3.7 (0-4.9); Cholesterol 168 mg/dL (< 200); Glucose 142 mg/dL (70-105); HDL Cholesterol 45 mg/dL (40-59); LDL Cholesterol,Calculated 105 mg/dL (0-99); Osmolality,Calculated 293 (280-300); Potassium 3.4 mEq/L (3.5-5.1); Sodium 139 mEq/L (136-145); Triglycerides 91 mg/dL (< 150); eGFR For African Americans > 60 (> 60); eGFR For Non-African Americans 56 (> 60)
[2017-11-24] MEDS: *HR* Heparin 5,000 UNIT/ML VIAL SQ SCH ×2 (06:09→17:13)
[2017-11-24] MEDS ORDERED: CeFAZolin Premix DUPLEX 2,000 MG/50 ML BAG IVPB ONE (09:01)
--- NOTE | 2017-11-24 09:06 | Event Note ---
Date of Encounter: 11/24/17 Time of Encounter: 08:00 - Cardiology Event Note Seen and examined. Patient presented with progressive shortness of breath over the past 2 weeks, ECG showed complete heart block. Continues to be in complete heart block with adequate escape rhythm, HR 70's overnight. Blood pressure stable. Labs stable this AM, SCr 1.32 was 1.15 upon admission. Will stop IV lasix. Appears euvolemic upon exam. Hx of CKD-3. CXR in ED: mild CHF. Cumulative I&O: -2950 mL Recommend PPM. Alternatives, risks, and benefits discussed, he agrees with plan. Will discuss and review with Dr. Chase Mcdonald. NPO except medications.
[2017-11-24] MEDS: Budesonide/Formoterol 160/4.5 MDI IH SCH ×2 (09:13→19:51)
[2017-11-24] MEDS: Insulin LISPRO 300 UNITS/3 ML VIAL SQ SCH ×4 (09:36→20:26)
[2017-11-24] MEDS: Loratadine 10 MG TABLET PO SCH (09:37)
[2017-11-24] MEDS: Cholecalciferol (D-3) 1,000 UNIT TABLET PO SCH (09:37)
--- NOTE | 2017-11-24 10:49 | Pre-Sedation Evaluation ---
Pre-sedation evaluation - Pre-sedation checklist Date of procedure: 11/24/17 Procedure: Pacemaker Recent Vitals: Last Vital Signs Temp 97.9 F 11/24/17 09:01 Pulse 76 11/24/17 09:01 Resp 16 11/24/17 09:01 BP 115/70 11/24/17 09:01 Pulse Ox 96 11/24/17 04:40 H&P (including ROS) documented in medical record: Yes Previous reaction to sedatives/anesthetics: No Dietary Status: NPO after Midnight Airway Assessment: Patient can open mouth completely, TMJ function normal, Micrognathia (under-bite, receding chin) absent Dentition: No loose teeth or bridges Possible difficult airway: No ASA Classification *see protocol: CLASS II-Mild systemic disease Plan of Care: Pt appropriate candidate for procedure/moderate/conscious sedation , Risks/benefits of procedure/sedation discussed w/ patient/family
[2017-11-24] MEDS ORDERED: *HR* Midazolam HCl 5 MG/5 ML VIAL IVP ONE (10:51)
[2017-11-24] MEDS ORDERED: *HR* FentaNYL (PF) 100 MCG/2 ML VIAL ONE (10:51)
[2017-11-24] MEDS ORDERED: 0.9 % Sodium Chloride 500 ML ONE ×2 (10:52→11:04)
[2017-11-24] MEDS ORDERED: Water for inj. (sterile) 10 ML IV ONE (10:52)
--- NOTE | 2017-11-24 15:28 | Internal Med Progress Note ---
Date of Encounter: 11/24/17 Time of Encounter: 13:00 - Assessment and plan (1) Acute exacerbation of congestive heart failure Current Visit: Yes Status: Acute Assessment and plan: Stable at this point s/p diuresis will hold off tonight's lasix given bump in creatinine monitor BMP Qualifiers: Heart failure type: diastolic Qualified Code(s): I50.33 - Acute on chronic diastolic (congestive) heart failure (2) Complete heart block Current Visit: Yes Status: Acute Assessment and plan: s/p PPM placement EP following (3) GERD (gastroesophageal reflux disease) Current Visit: Yes Status: Acute Assessment and plan: on PPI. monitor clinically Qualifiers: Esophagitis presence: esophagitis presence not specified Qualified Code(s) : K21.9 - Gastro-esophageal reflux disease without esophagitis (4) SID (acute kidney injury) Current Visit: Yes Status: Acute Assessment and plan: likely due to diuresis hold further IV lasix for now monitor closely clinically and lab-manuel - Subjective Interval history: restig comfortably. Seen after PPM insertion. denies fever/chills - Constitutional Vitals: Temp Pulse Resp BP Pulse Ox 98.4 F 92 18 122/83 96 11/24/17 15:06 11/24/17 15:06 11/24/17 15:06 11/24/17 15:06 11/24/17 15:06 General appearance: Present: A&O X 3, pleasant, no acute distress, answers questions appropriately Exam: General , Alert , oriented, resting comfortably. HEENT- PERRLA. EOMI CVS- S1S2 N, No Murmurs, Rubs, gallops, No JVD RS- CTA Bilaterally. No rales no Rhonchi heard chest wall- bandage present - post PPM placement, Abdomen- Soft NT ND, bowel sounds heard across all 4 quadrants Neuro- No Focal deficits appreciated, CN 2-12 intact, Motors- power 5/5 UE, 5/5 LE Bilaterally, Sensations intact Extremeties- no Clubbing/ edema/ wounds seen Internal Medicine: Result - Labs CBC & Chem 7: 11/24/17 02:57 11/24/17 02:57 Labs: Short CBC 11/24/17 Range/Units 02:57 WBC 7.2 (4.3-11.1) K/mcL Hgb 9.9 L (12.9-16.9) g/dL Hct 31.8 L (37.5-50.1) % Plt Count 172 (140-400) K/mcL Neutrophils # 5.1 (1.6-8.9) K/mcL BMP 11/24/17 02:57 Sodium 139 Potassium 3.4 L Chloride 103 Carbon Dioxide 26 BUN 19 Creatinine 1.32 H Glucose 142 H Calcium 8.8 Cardiac Enzymes 11/23/17 11/23/17 Range/Units 16:06 21:36 Troponin I < 0.03 < 0.03 (< 0.04) ng/mL - ABG Interpretation ABG results: PT/INR, D-dimer PT 11.7 Seconds (9.4-12.1) 11/23/17 09:37 - Impressions Impressions Chest X-Ray 11/24/17 12:03 IMPRESSION: No radiographic evidence of complication status post placement of left subclavian pacemaker. D/ / Santy Bruner MD / Santy Bruner MD Interpreting Provider: Santy Bruner MD Consult Discharge Plan - Plan Referrals: ONE WEEK, WOUND CHECK [Other] (OFFICE WILL CALL YOU WITH YOUR APPOINTMENT) ONE MONTH, DEVICE CHECK [Other] (OFFICE WILL CALL YOU WITH YOUR APPOINTMENT) Lenka Singh MD [Primary Care Provider] - 12/08/17 4:00 pm Chase Mcdonald MD [Partnered Physician] - (OFFICE WILL CALL YOU WITH YOUR APPOINTMENT)
[2017-11-24] MEDS: CeFAZolin Premix DUPLEX 2,000 MG/50 ML BAG IVPB SCH (17:14)
--- NOTE | 2017-11-24 17:18 | Electrocardiograph Report ---
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
[2017-11-24] MEDS: Mirtazapine 15 MG TABLET PO SCH (19:58)
[2017-11-25] MEDS: Ipratropium/Albuterol Neb 3 ML IH SCH ×5 (00:02→15:43)
[2017-11-25] MEDS: CeFAZolin Premix DUPLEX 2,000 MG/50 ML BAG IVPB SCH (02:37)
[2017-11-25 03:18] LABS: Basophils % 0.3 %; Eosinophils # 0.2 K/mcL (0.0-0.6); Eosinophils % 2.9 %; Hematocrit 31.7 % (37.5-50.1); Hemoglobin 9.8 g/dL (12.9-16.9); Immature Granulocytes % 0.4 % (0-4); Lymphocytes # 0.7 K/mcL (0.6-4.6); Lymphocytes % 8.5 %; Mean Corpuscular HGB Conc 30.9 g/dL (31.6-35.5); Mean Corpuscular Hemoglobin 23.6 pg (28.0-33.3); Mean Corpuscular Volume 76.2 fL (83.0-100.0); Mean Platelet Volume 11.5 fL (9.4-12.4); Monocytes # 0.6 K/mcL (0.0-1.3); Monocytes % 7.5 %; Neutrophils # 6.4 K/mcL (1.6-8.9); Platelet Count 176 K/mcL (140-400); Red Blood Count 4.16 M/mcL (4.19-5.50); Red Cell Distribution Width 15.1 % (11.5-14.5); Segmented Neutrophils % 80.4 %
[2017-11-25 03:41] LABS: BUN/Creatinine Ratio 18 (6-26); Blood Urea Nitrogen 20 mg/dL (6-20); Calcium 9.1 mg/dL (8.6-10.3); Carbon Dioxide 26 mEq/L (23-29); Chloride 101 mEq/L (98-107); Glucose 154 mg/dL (70-105); Osmolality,Calculated 288 (280-300); Potassium 3.8 mEq/L (3.5-5.1); Sodium 136 mEq/L (136-145); eGFR For African Americans > 60 (> 60); eGFR For Non-African Americans > 60 (> 60)
[2017-11-25 03:42] LABS: Alanine Aminotransferase 22 Units/L (7-52); Albumin/Globulin Ratio 1.3 (1.1-2.2); Alkaline Phosphatase 74 Units/L (34-104); Aspartate Amino Transferase 40 Units/L (13-39); BUN/Creatinine Ratio 18 (6-26); Bilirubin,Total 0.9 mg/dL (0.3-1.0); Blood Urea Nitrogen 20 mg/dL (6-20); Calcium 9.1 mg/dL (8.6-10.3); Carbon Dioxide 26 mEq/L (23-29); Chloride 101 mEq/L (98-107); Glucose 152 mg/dL (70-105); Osmolality,Calculated 290 (280-300); Potassium 3.8 mEq/L (3.5-5.1); Sodium 137 mEq/L (136-145); eGFR For African Americans > 60 (> 60); eGFR For Non-African Americans > 60 (> 60)
[2017-11-25] MEDS: *HR* Heparin 5,000 UNIT/ML VIAL SQ SCH (06:25)
[2017-11-25] MEDS ORDERED: Furosemide 20 MG TABLET PO PRN (08:15)
[2017-11-25] MEDS: Cholecalciferol (D-3) 1,000 UNIT TABLET PO SCH (08:30)
[2017-11-25] MEDS: Loratadine 10 MG TABLET PO SCH (08:30)
[2017-11-25] MEDS: Insulin LISPRO 300 UNITS/3 ML VIAL SQ SCH ×2 (08:31→12:12)
--- NOTE | 2017-11-25 10:13 | Electrophysiology ProgressNote ---
Date of Encounter: 11/25/17 Time of Encounter: 10:11 Assessment and Plan (1) S/P cardiac pacemaker procedure Current Visit: Yes Status: Acute S/P PPM yesterday for complete heart block. Reports continued mild dyspnea, denies any other cardiac symptoms. CXR stable. Device check okay. Device site healing well. No bleeding or hematoma noted. Mild ecchymosis. Steri strips intact. Restrictions discussed. Follow-up in 7-10 days for wound check, 4-6 weeks device check and in [address] Chase Mcdonald. Will coordinate. Cardiology signing off. Reconsult PRN. (2) Complete heart block Current Visit: Yes Status: Acute As above, s/p PPM. Echo EF preserved with normal wall motion. (3) Mild CAD Current Visit: Yes Status: Acute Mild CAD on prior C. Continue Plavix (asa allergy) and statin. No BB given above complete heart block. (4) Dyspnea Current Visit: Yes Status: Acute Presented with worsening dyspnea, found to have CHB now s/p PPM. Reports continued mild dyspnea. Appears euvolemic on exam. IV Lasix was stopped yesterday. Cumulative I&O: -5325mL. CXR this AM mild perihilar vascular congestion without overt heart failure. Limited echo EF preserved with normal wall motion. Qualifiers: Dyspnea type: unspecified Qualified Code(s): R06.00 - Dyspnea, unspecified Discussion w patient/family: The assessment and plan as outlined above was discussed with the patient and/or family members who expressed understanding and agreement. All questions were answered. Thank you for involving us in the care of your patient. Please call with any questions. Subjective Principal diagnosis: Complete heart block Interval history: S/P PPM yesterday for complete heart block. Pt reports continued dyspnea. He denies chest pain, dizziness or any other cardiac complaints. CXR this AM stable with cardiomegaly and mild perihilar vascular congestion, no overt heart failure. Device check okay. Objective Vital Signs, Last 4 Hours Temp Pulse Resp BP Pulse Ox 11/25/17 09:50 99 22 98 11/25/17 08:14 95 11/25/17 08:10 81 11/25/17 08:02 97.8 F 77 18 135/82 93 Vital Signs Temp Pulse Resp BP Pulse Ox 11/25/17 09:50 99 22 98 02/13/18 08:14 95 11/25/17 08:10 81 11/25/17 08:02 97.8 F 77 18 135/82 93 11/25/17 04:49 89 14 99 11/25/17 03:53 14 99 11/25/17 02:37 98.1 F 95 18 144/89 96 11/25/17 00:45 80 29 95 11/25/17 00:04 29 95 11/25/17 00:02 98.5 F 78 22 133/95 96 11/24/17 20:57 89 11/24/17 19:54 20 100 11/24/17 19:09 98.1 F 88 19 120/68 96 11/24/17 16:29 18 96 11/24/17 15:06 98.4 F 91 18 122/83 96 11/24/17 13:05 97.6 F 81 16 116/50 96 11/24/17 12:25 97.6 F 81 16 122/113 95 Intake and Output 11/24/17 11/25/17 11/25/17 23:59 07:59 15:59 Intake Total 50 / 50 0 / 0 360 / 360 Output Total 700 / 700 150 / 150 400 / 400 Balance -650 / -650 -150 / -150 -40 / -40 Intake: IV Fluids 50 / 50 Ancef Premix DUPLEX 2,000 mg In 50 / 50 50 ml @ 100 mls/hr IVPB Q8H [facility] Rx#:[id number] Oral 0 / 0 360 / 360 Output: Urine 700 / 700 150 / 150 400 / 400 Other: Meal Breakfast Percent of Meal Consumed 100% Stool Size Small Moderate Stool Consistency loose liquid Stool Color Brown Brown Yellow # Bowel Movements 1 1 Weight 107.8 kg Blood Glucose* 146 139 128 Patient Weight 11/25/17 23:59 Weight 107.8 kg General: Conversant, No Apparent Distress HEENT: Atraumatic, Normocephaly, Mucus Membranes Moist Neck: No JVD, Normal carotid pulses Cardiac: Reg Rate and Rhythm, Normal S1 and S2, No Murmur Lungs: Other (diminished) Neuro: Alert and responsive, No focal deficits noted Abdomen: Soft, Non-Tender Skin: No rashes noted on visualized skin Musculoskeletal: No Chest Wall Tenderness Extremities: No Clubbing, No Cyanosis, No Edema, Normal Pulses Results 11/25/17 03:07 11/25/17 03:07 Lab Results 11/25/17 11/25/17 11/25/17 03:07 03:07 03:07 WBC 8.0 Hgb 9.8 L Hct 31.7 L Plt Count 176 Sodium 136 137 Potassium 3.8 3.8 Chloride 101 101 Carbon Dioxide 26 26 BUN 20 20 Creatinine 1.09 1.11 Glucose 154 H 152 H Calcium 9.1 9.1 Total Bilirubin 0.9 AST 40 H ALT 22 Alkaline Phosphatase 74 Short CBC 11/25/17 Range/Units 03:07 WBC 8.0 (4.3-11.1) K/mcL Hgb 9.8 L (12.9-16.9) g/dL Hct 31.7 L (37.5-50.1) % Plt Count 176 (140-400) K/mcL Neutrophils # 6.4 (1.6-8.9) K/mcL BMP 11/25/17 11/25/17 Range/Units 03:07 03:07 Sodium 137 136 (136-145) mEq/L Potassium 3.8 3.8 (3.5-5.1) mEq/L Chloride 101 101 (98-107) mEq/L Carbon Dioxide 26 26 (23-29) mEq/L BUN 20 20 (6-20) mg/dL Creatinine 1.11 1.09 (0.70-1.30) mg/dL Glucose 152 H 154 H (70-105) mg/dL Calcium 9.1 9.1 (8.6-10.3) mg/dL Liver Function 11/25/17 Range/Units 03:07 Total Bilirubin 0.9 (0.3-1.0) mg/dL AST 40 H (13-39) Units/L ALT 22 (7-52) Units/L Alkaline Phosphatase 74 (34-104) Units/L Albumin 4.0 (3.5-5.7) g/dL Impressions Chest X-Ray 11/24/17 12:03 IMPRESSION: No radiographic evidence of complication status post placement of left subclavian pacemaker. D/ / Santy Bruner MD / Santy Bruner MD Interpreting Provider: Santy Bruner MD Chest X-Ray 11/25/17 06:00 IMPRESSION: Stable chest with cardiomegaly and mild perihilar vascular congestion. No overt heart failure is seen at this time. D/ / Santy Bruner MD / Santy Bruner MD Interpreting Provider: Santy Bruner MD Active Medications Acetaminophen (Tylenol) 650 mg PO Q6H PRN PRN Reason: Mild Pain/Fever Stop: 05/25/18 11:43 Last Admin: 11/25/17 02:37 Dose: 650 mg Hydrocodone Bitart/Acetaminophen ([place] 5-325 Mg) 1 tab PO Q6H PRN PRN Reason: Moderate Pain Stop: 05/25/18 11:43 Albuterol/Ipratropium (Duoneb) 3 ml IH [id number] [facility] Stop: 05/25/18 12:01 Last Admin: 11/25/17 08:32 Dose: Not Given Artificial Tears (Akwa Tears) 1 drop OP Q6H PRN PRN Reason: Dry Eye(s) Atorvastatin Calcium (Lipitor) 20 mg PO HS [facility] Stop: 05/25/18 21:01 Last Admin: 11/24/17 19:57 Dose: 20 mg Atropine Sulfate (Atropine) 0.5 mg IVP Q5M PRN PRN Reason: Bradycardia Stop: 05/25/18 12:16 Budesonide/Formoterol Fumarate (Symbicort) 2 puff IH BIDR ANDREY PRN Reason: Protocol Stop: 05/25/18 22:01 Last Admin: 11/24/17 19:51 Dose: 2 puff Clopidogrel Bisulfate (Plavix) 75 mg PO QAM [facility] Stop: 05/26/18 09:01 Last Admin: 11/25/17 08:30 Dose: 75 mg Epinephrine HCl (Epipen) 0.3 mg IM ONCE PRN PRN Reason: Allergic Reaction Stop: 05/25/18 12:04 Furosemide (Lasix) 20 mg PO DAILY PRN PRN Reason: Edema Stop: 05/27/18 08:16 Heparin Sodium (Porcine) (Heparin) 5,000 unit SQ Q12HR ANDREY Stop: 05/25/18 18:01 Last Admin: 11/25/17 06:25 Dose: 5,000 unit Insulin Human Lispro (Humalog) 0 units SQ HS ANDREY PRN Reason: Protocol Stop: 05/25/18 21:01 Last Admin: 11/24/17 20:26 Dose: Not Given Insulin Human Lispro (Humalog) 0 units SQ TIDWM ANDREY PRN Reason: Protocol Stop: 05/25/18 12:01 Last Admin: 11/25/17 08:31 Dose: Not Given Loratadine (Claritin) 10 mg PO QAM ANDREY PRN Reason: Protocol Stop: 05/26/18 09:01 Last Admin: 11/25/17 08:30 Dose: 10 mg Mirtazapine (Remeron) 15 mg PO HS [facility] Stop: 05/25/18 21:01 Last Admin: 11/24/17 19:58 Dose: 15 mg Naloxone HCl (Narcan) 0.4 mg IVP Q2MIN PRN PRN Reason: SEE COMMENTS Stop: 05/25/18 11:43 Nitroglycerin (Nitroglycerin) 0.4 mg SL Q5MIN PRN PRN Reason: Chest Pain Stop: 05/25/18 11:56 Omeprazole (Prilosec) 40 mg PO DAILY [facility] Stop: 05/26/18 09:01 Last Admin: 11/25/17 08:30 Dose: 40 mg Ondansetron HCl (Zofran) 4 mg IVP Q8H PRN; Protocol PRN Reason: Nausea And Vomiting Stop: 05/25/18 11:56 Sertraline HCl (Zoloft) 200 mg PO DAILY [facility] Stop: 05/26/18 09:01 Last Admin: 11/25/17 08:30 Dose: 200 mg Vitamin D (Vitamin D) 1,000 unit PO DAILY [facility] Stop: 05/26/18 09:01 Last Admin: 11/25/17 08:30 Dose: 1,000 unit - Imaging and Cardiology Echo: report reviewed - EKG Interpretation EKG results cardiology: other (12 hr tele AVG HR 88, paced) Consult Discharge Plan - Plan Referrals: ONE WEEK, WOUND CHECK [Other] (OFFICE WILL CALL YOU WITH YOUR APPOINTMENT) ONE MONTH, DEVICE CHECK [Other] (OFFICE WILL CALL YOU WITH YOUR APPOINTMENT) Lenka Singh MD [Primary Care Provider] - 12/08/17 4:00 pm Chase Mcdonald MD [Partnered Physician] - (OFFICE WILL CALL YOU WITH YOUR APPOINTMENT)
[2017-11-25] MEDS: Budesonide/Formoterol 160/4.5 MDI IH SCH (11:02)
--- NOTE | 2017-11-25 15:57 | Discharge Summary ---
Date of Encounter: 11/25/17 Time of Encounter: 13:45 - Discharge Diagnosis (1) Acute exacerbation of congestive heart failure Priority: Primary Status: Acute Qualifiers: Heart failure type: diastolic Qualified Code(s): I50.33 - Acute on chronic diastolic (congestive) heart failure (2) Complete heart block Priority: Secondary Status: Acute (3) GERD (gastroesophageal reflux disease) Priority: Secondary Status: Acute Qualifiers: Esophagitis presence: esophagitis presence not specified Qualified Code(s) : K21.9 - Gastro-esophageal reflux disease without esophagitis (4) SID (acute kidney injury) Priority: Secondary Status: Acute - Discharge Medications Home Medications: Albuterol Sulfate [Ventolin Hfa] 2 puff IH Q4H PRN 08/05/15 [History] Budesonide/Formoterol 160/4.5 [Symbicort] 2 puff IH BIDR 08/05/15 [History] Cholecalciferol (Vitamin D3) [Vitamin D3] 2,000 unit PO BID 08/05/15 [History] Clopidogrel [Plavix] 75 mg PO QAM 08/05/15 [History] Loratadine [Claritin] 10 mg PO QAM 08/05/15 [History] EPINEPHrine [Epipen] 0.3 mg IM ONCE PRN 10/01/16 [History] Omeprazole [PriLOSEC] 40 mg PO DAILY 10/01/16 [History] Lovastatin 80 mg PO HS 07/10/17 [History] Mirtazapine [Remeron] 15 mg PO HS 07/10/17 [History] Propylene Glycol/Peg 400 [Systane 0.3-0.4% Eye Drops] 1 drop OP Q6H PRN [History] Sertraline [Zoloft] 200 mg PO DAILY 07/10/17 [History] metFORMIN [Glucophage] 500 mg PO DAILY #30 tablet 07/13/17 [Rx] Allergies/Adverse Reactions: 3 Allergy/AdvReac Type Severity Reaction Status Date / Time aspirin Allergy Anaphylaxis Verified 11/09/17 04:31 Bee Pollen Allergy Anaphylaxis Verified 11/09/17 04:31 naproxen [From Aleve] Allergy Anaphylaxis Verified 11/09/17 04:31 spider venom Allergy Swelling Verified 11/09/17 04:31 of Lip/Tongue/Throat Procedures/tests Complete & Pending: Procedures Performed prior 72 hours Category Date Time Status CL Insert Permanent Pacemaker [CL] Routine Manager Contact 11/24/17 09:00 Completed Date of admission: 11/23/17 10:29 Primary care physician: Lenka Singh Consults: 11/23/17 11:46 Consult to Occupational Therapy [CONS] Routine Comment: Evaluate, develop and implement POC Reason for Consult: Weakness Consult to Physical Therapy [CONS] Routine Comment: Evaluate, develop and implement POC Reason for Consult: weakness Consult to Woven Label Designer [CONS] Routine Reason for SW Consult: Has concern for financial coverage. 11/23/17 11:49 Consult to Pastoral Services [CONS] Routine Comment: - Patient Status Disposition: Home, Self-Care Functional capacity at discharge: independent ambulation - Discharge Instructions Follow Up With: ONE WEEK, WOUND CHECK [Other] (OFFICE WILL CALL YOU WITH YOUR APPOINTMENT) ONE MONTH, DEVICE CHECK [Other] (OFFICE WILL CALL YOU WITH YOUR APPOINTMENT) Lenka Singh MD [Primary Care Provider] - 12/08/17 4:00 pm Chase Mcdonald MD [Partnered Physician] - (OFFICE WILL CALL YOU WITH YOUR APPOINTMENT) Forms: ED Satisfaction Letter - Diet and Activity Activity: increase activity as tolerated Diet: low salt diet Interval History: Patient was admitted with diagnoses of mild congestive heart failure with preserved ejection fraction . He also was found to have complete heart block in this visit. Cardiology saw the patient and given that his first-degree AV block was also seen last year and has likely progressed he underwent a permanent pacemaker placement yesterday. Today he underwent a site check as well as interrogation of the pacemaker and has been cleared from electrophysiology standpoint for discharge. He is to follow up within 7 to 10 days time Hospital course: Mr. Varela is a 57 year old male - Time Spent with Patient Total time spent providing and/or coordinating discharge services: Greater than 30 minutes Specific discharge activities: Coordinating plan of care, medication reconciliation - Constitutional Vitals: Temp Pulse Resp BP Pulse Ox 97.6 F 88 20 128/72 96 11/25/17 11:28 11/25/17 14:14 11/25/17 15:45 11/25/17 11:28 11/25/17 15:45 General appearance: Present: A&O X 3, pleasant, no acute distress, answers questions appropriately Exam: General , Alert , oriented, HEENT- PERRLA. EOMI CVS- S1S2 N, No Murmurs, Rubs, gallops, No JVD RS- CTA Bilaterally. No rales no Rhonchi heard chest wall-pacemaker site looks good no hematoma or local tenderness seen Abdomen- Soft NT ND, bowel sounds heard across all 4 quadrants Neuro- No Focal deficits appreciated, CN 2-12 intact, Motors- power 5/5 UE, 5/5 LE Bilaterally, Sensations intact Extremeties- mild pitting edema bilateral lower extremities
[2017-11-25 15:58] VITALS: BP 136/75
== END 2017-11-25 17:40 | disposition home or self-care (01) | DRG 242 ==
LOC: EMEROO 08:56 → 2NNU 10:29
PROVIDERS: ADMIT Student in an Organized Health Care Education/Training Program; ATTEND Internal Medicine

== ENCOUNTER 2018-05-09 23:03 | Observation (INO) ==
--- NOTE | 2018-05-09 23:12 | Emergency Department Note ---
Disposition Clinical Impression: Syncope Qualifiers: Syncope type: unspecified Qualified Code(s): R55 - Syncope and collapse Anemia Qualifiers: Anemia type: unspecified type Qualified Code(s): D64.9 - Anemia, unspecified Disposition: Admitted As Inpatient Condition: Fair Referrals: Lenka Singh MD [Primary Care Provider] - Forms: ED Satisfaction Letter Time of Disposition: 00:20 Syncope HPI - General Chief Complaint: ED Syncope Stated Complaint: syncope Time Seen by Provider: 05/09/18 23:07 Source: patient, EMS Mode of arrival: EMS Limitations: no limitations Nursing Notes Reviewed: Yes Vital Signs Reviewed: Yes - History of Present Illness HPI Narrative: 58-year-old male with a history of heart failure, COPD, diabetes, hypertension status post pacemaker presents for evaluation of syncopal episode. Patient states that he felt stuffy and warm and went outside. Patient states the next thing he knew he was on the ground. Patient states that he felt backwards. This was unwitnessed of the patient does live alone. Patient was unclear how long he was on the ground. Patient denies any significant prodromal symptoms. No chest pain or shortness of breath. No palpitations. No fevers. No nausea vomiting or abdominal pain. Patient states he did hit his head. Denies any neck pain. - Related Data Home Medications Medication Instructions Recorded Confirmed Albuterol Sulfate [Ventolin Hfa] 2 puff IH Q4H PRN 08/05/15 11/23/17 Budesonide/Formoterol 160/4.5 2 puff IH BIDR 08/05/15 11/23/17 [Symbicort] Cholecalciferol (Vitamin D3) 2,000 unit PO BID 08/05/15 11/23/17 [Vitamin D3] Clopidogrel [Plavix] 75 mg PO QAM 08/05/15 11/23/17 Loratadine [Claritin] 10 mg PO QAM 08/05/15 11/23/17 EPINEPHrine [Epipen] 0.3 mg IM ONCE PRN 10/01/16 11/23/17 Omeprazole [PriLOSEC] 40 mg PO DAILY 10/01/16 11/23/17 Lovastatin 80 mg PO HS 07/10/17 11/23/17 Mirtazapine [Remeron] 15 mg PO HS 07/10/17 11/23/17 Propylene Glycol/Peg 400 [Systane 1 drop OP Q6H PRN 07/10/17 11/23/17 0.3-0.4% Eye Drops] Sertraline [Zoloft] 200 mg PO DAILY 07/10/17 11/23/17 Previous Rx's Medication Instructions Recorded metFORMIN [Glucophage] 500 mg PO DAILY #30 tablet 07/13/17 Allergies Allergy/AdvReac Type Severity Reaction Status Date / Time aspirin Allergy Anaphylaxis Verified 05/09/18 23:08 Bee Pollen Allergy Anaphylaxis Verified 05/09/18 23:08 naproxen [From Aleve] Allergy Anaphylaxis Verified 05/09/18 23:08 spider venom Allergy Swelling Verified 05/09/18 23:08 of Lip/Tongue/Throat All systems ED: reviewed and negative except as stated. Constitutional: Denies: fever Cardiovascular: Denies: chest pain Respiratory: Denies: cough, dyspnea Gastrointestinal: Denies: abdominal pain, nausea, vomiting Past Medical History - Past Medical History Source: patient Medical history: Reports: asthma, CHF, COPD, coronary artery disease, DVT, diabetes, GERD, hyperlipidemia, hypertension, other Surgical history: Reports: appendectomy, cholecystectomy Psychiatric history: Reports: depression - Social History Smoking Status: Never smoker Smokeless Tobacco Status: No Alcohol use: Reports: none Drug use: Reports: none Physical Exam - General Limitations: no limitations General appearance: alert, in no apparent distress - Head Head exam: atraumatic, normocephalic, normal inspection - Eye Eye exam: Present: normal appearance, PERRL, EOMI - ENT ENT exam: normal exam - Neck Neck exam: Present: normal inspection. Absent: tenderness - Chest Chest inspection: Present: normal inspection, symmetric chest wall rise - Respiratory Respiratory exam: Present: normal lung sounds bilaterally. Absent: respiratory distress - Cardiovascular Cardiovascular exam: Present: regular rate, normal rhythm. Absent: systolic murmur - Abdominal Exam Abdominal exam: Present: soft, Non-Tender - Extremities Exam Extremities exam: Present: normal inspection. Absent: pedal edema - Expanded Lower Extremity Exam Lower leg exam: Present: other (Left lower leg edema a simple place.) Neurovascular/Tendon exam: Present: normal capillary refill - Back Exam Back exam: Present: normal inspection. Absent: tenderness - Neurological Exam Neurological exam: Present: alert, oriented X3, CN II-XII intact - Expanded Neurological Exam Patient oriented to: Present: person, place, time Speech: Present: fluid speech Cranial nerves: EOM function (II, III, IV, ): Normal, facial sensation (V): Normal, facial palsy (VII): Normal, spinal accessory function (XI): Normal, tongue deviation (XII): Normal Motor strength - LUE: 5/5 Motor strength - RUE: 5/5 Motor strength - LLE: 5/5 Motor strength - RLE: 5/5 - Skin Skin exam: Present: warm, dry, intact, normal color Course Course Narrative: Patient seen and examined. Patient will get basic labs, chest x-ray, head CT. Disposition likely admission. Vital Signs Temperature 97.5 F L 05/09/18 23:04 Pulse Rate 86 05/09/18 23:04 Respiratory Rate 16 05/09/18 23:04 Blood Pressure 109/83 05/09/18 23:04 O2 Sat by Pulse Oximetry 99 05/09/18 23:04 Temperature 97.5 F L 05/09/18 23:04 Pulse Rate 86 05/09/18 23:04 Respiratory Rate 16 05/09/18 23:04 Blood Pressure 109/83 05/09/18 23:04 O2 Sat by Pulse Oximetry 99 05/09/18 23:04 Oxygen Delivery Oxygen Delivery Nasal Cannula Syncope - MDM Narrative Medical decision making narrative: Patient presents for single episode. This was unwitnessed. Patient does have risk factors for cardiogenic syncope given history of heart failure as well as having a pacemaker. Patient was evaluated ED showed anemia at baseline. No concerns for GI bleed or significant blood loss. CT of the head is unremarkable. Patient's electrolytes are also unremarkable. Patient shows no signs of pulmonary embolism. Patient would likely benefit from further cardiopulmonary evaluation including echo, vascular imaging of the neck and further evaluation. Patient was agreeable with this plan of care for admission. - Lab Data Lab results reviewed: Yes I reviewed the patient's lab results. Result diagrams: 05/09/18 23:17 05/09/18 23:17 Lab Results 05/09/18 05/09/18 05/09/18 Range/Units 23:17 23:17 23:17 WBC 6.8 (4.3-11.1) K/mcL RBC 4.42 (4.19-5.50) M/mcL Hgb 11.0 L (12.9-16.9) g/dL Hct 35.0 L (37.5-50.1) % MCV 79.2 L (83.0-100.0) fL MCH 24.9 L (28.0-33.3) pg MCHC 31.4 L (31.6-35.5) g/dL RDW 15.9 H (11.5-14.5) % Plt Count 166 (140-400) K/mcL MPV 12.2 (9.4-12.4) fL Immature Gran % 0.3 (0-4) % Seg Neutrophils % 65.4 % Lymphocytes % 19.7 % Monocytes % 10.2 % Eosinophils % 3.7 % Basophils % 0.7 % Neutrophils # 4.4 (1.6-8.9) K/mcL Lymphocytes # 1.3 (0.6-4.6) K/mcL Monocytes # 0.7 (0.0-1.3) K/mcL Eosinophils # 0.3 (0.0-0.6) K/mcL Basophils # 0.1 (0.0-0.2) K/mcL Sodium 135 L (136-145) mEq/L Potassium 3.9 (3.5-5.1) mEq/L Chloride 101 (98-107) mEq/L Carbon Dioxide 28 (23-29) mEq/L BUN 23 H (6-20) mg/dL Creatinine 1.07 (0.70-1.30) mg/dL Est GFR ( Amer) > 60 (> 60) Est GFR (Non-Af Amer) > 60 (> 60) BUN/Creatinine Ratio 21 (6-26) Glucose 148 H (70-105) mg/dL Calculated Osmolality 286 (280-300) Calcium 9.1 (8.6-10.3) mg/dL Phosphorus 3.2 (2.7-4.5) mg/dL Magnesium 2.3 (1.6-2.6) mg/dL Creatine Kinase 196 (30-223) Units/L Troponin I < 0.03 (< 0.04) ng/mL B-Natriuretic Peptide 88 (Less than 100) pg/mL - Radiology Data Radiology results reviewed: Yes I reviewed the patient's radiology results. Chest X-Ray 05/09/18 23:07 IMPRESSION: No acute process. D/ / Ca Montano MD / Ca Montano MD Interpreting Provider: Ca Montano MD Head CT 05/09/18 23:08 IMPRESSION: No acute intracranial abnormality. D/ / Ca Montano MD / Ca Montano MD Interpreting Provider: Ca Montano MD - EKG Data EKG attestation: Yes I reviewed and interpreted this EKG. EKG results narrative: Electronic ventricular pacemaker at a rate of 84. Left axis deviation. No signs of Sgarbossa criteria. No acute changes. S.B.A.RDerrell - S.Kelsey.AElizabeth Situation: Demographics Background: Presenting Complaint Assessment: Vital Signs, Course and respsone to treatment, Patient/Family Expectation Recommendation: Barrier(s) to disposition, Recommendation based on pending studies, treatments, or consults S.B.A.RDerrell Report Given to: Dr. Debby Breaux Repor Time: 00:20
[2018-05-09 23:41] LABS: Basophils # 0.1 K/mcL (0.0-0.2); Basophils % 0.7 %; Eosinophils # 0.3 K/mcL (0.0-0.6); Eosinophils % 3.7 %; Immature Granulocytes % 0.3 % (0-4); Lymphocytes # 1.3 K/mcL (0.6-4.6); Lymphocytes % 19.7 %; Mean Corpuscular HGB Conc 31.4 g/dL (31.6-35.5); Mean Corpuscular Hemoglobin 24.9 pg (28.0-33.3); Mean Corpuscular Volume 79.2 fL (83.0-100.0); Mean Platelet Volume 12.2 fL (9.4-12.4); Monocytes # 0.7 K/mcL (0.0-1.3); Monocytes % 10.2 %; Neutrophils # 4.4 K/mcL (1.6-8.9); Platelet Count 166 K/mcL (140-400); Red Blood Count 4.42 M/mcL (4.19-5.50); Red Cell Distribution Width 15.9 % (11.5-14.5); Segmented Neutrophils % 65.4 %
[2018-05-10] LABS: Troponin I < 0.03 ng/mL (< 0.04)
[2018-05-10 00:02] LABS: BUN/Creatinine Ratio 21 (6-26); Blood Urea Nitrogen 23 mg/dL (6-20); Calcium 9.1 mg/dL (8.6-10.3); Carbon Dioxide 28 mEq/L (23-29); Chloride 101 mEq/L (98-107); Creatine Kinase 196 Units/L (30-223); Glucose 148 mg/dL (70-105); Magnesium 2.3 mg/dL (1.6-2.6); Osmolality,Calculated 286 (280-300); Phosphorous 3.2 mg/dL (2.7-4.5); Potassium 3.9 mEq/L (3.5-5.1); Sodium 135 mEq/L (136-145); eGFR For Non-African Americans > 60 (> 60)
[2018-05-10] MEDS ORDERED: Naloxone 0.4 MG/ML INJ IVP PRN (03:35)
[2018-05-10] MEDS ORDERED: D5% in Water 1,000 ML IVC PRN (03:48)
[2018-05-10] MEDS ORDERED: *HR* Dextrose 50 % in Water (Syg) 50 ML SYRINGE IVP PRN (03:48)
[2018-05-10] MEDS ORDERED: Dextrose Gel 15 GM/37.5 ML TUBE PO PRN ×2 (03:48)
--- NOTE | 2018-05-10 03:54 | Internal Med History&Physical ---
Date of Encounter: 05/10/18 Time of Encounter: 03:00 Internal Medicine - H&P: HPI Chief complaint: Syncope Admitted From: Home Plans for Post Hospital Care: Home History of present illness: Mr. Varela is a 58 year old male Patient states he was feeling dizzy and warm at home, decided to get up from the couch and go outside. The next thing he knew he was on the floor staring up at the ceiling. He does not remember falling, and has no idea how long he was on the ground. He denies having vision changes or blacking out prior to the event. He never had anything this before. Called EMS who transported him to the hospital. He lives alone and the fall was unwitnessed. He has a past medical history of pacemaker put in about 3 months ago. He was last seen by cardiology a few weeks ago. He regularly checks his blood pressure and heart rate and says earlier in the day he had elevated heart rate and blood pressure above his normal range.emergency room chest x-ray showed no acute cardiopulmonary abnormality, head CT showed no acute intracranial abnormality. Troponins were less than 0.03 and CBC and BMP were within normal limits. He was admitted for further workup of his syncope episode. Currently patient denies pain, dizziness, nausea, vomiting, diarrhea, constipation, chest and abdominal pain. Past Med Surg Social Fam HX - Past Medical History Medical history: arthritis, asthma, CHF, COPD, coronary artery disease, DVT, diabetes, GERD, hyperlipidemia, hypertension, other Additional medical history: pleurisy Psychiatric history: depression - Past Surgical History Surgical History: appendectomy, cholecystectomy, pacemaker/AICD Additional surgical history: [facility] - Social History Smoking Status: Never smoker Smokeless Tobacco Status: No Alcohol use: none Drug use: none - Family History Mother Adopted: Yes Internal Medicine - H&P: Meds Albuterol Sulfate [Ventolin Hfa] 2 puff IH Q4H PRN 08/05/15 [History] Budesonide/Formoterol 160/4.5 [Symbicort] 2 puff IH BIDR 08/05/15 [History] Cholecalciferol (Vitamin D3) [Vitamin D3] 2,000 unit PO BID 08/05/15 [History] Clopidogrel [Plavix] 75 mg PO QAM 08/05/15 [History] Loratadine [Claritin] 10 mg PO QAM 08/05/15 [History] EPINEPHrine [Epipen] 0.3 mg IM ONCE PRN 10/01/16 [History] Omeprazole [PriLOSEC] 40 mg PO DAILY 10/01/16 [History] Lovastatin 80 mg PO HS 07/10/17 [History] Mirtazapine [Remeron] 15 mg PO HS 07/10/17 [History] Propylene Glycol/Peg 400 [Systane 0.3-0.4% Eye Drops] 1 drop OP Q6H PRN [History] Sertraline [Zoloft] 200 mg PO DAILY 07/10/17 [History] metFORMIN [Glucophage] 500 mg PO DAILY #30 tablet 07/13/17 [Rx] 3 Allergy/AdvReac Type Severity Reaction Status Date / Time aspirin Allergy Anaphylaxis Verified 05/09/18 23:08 Bee Pollen Allergy Anaphylaxis Verified 05/09/18 23:08 naproxen [From Aleve] Allergy Anaphylaxis Verified 05/09/18 23:08 spider venom Allergy Swelling Verified 05/09/18 23:08 of Lip/Tongue/Throat All Systems PM: A 10-system review of systems was performed and is negative for pertinent findings except as documented above in the HPI. - Constitutional Vitals: Temp Pulse Resp BP Pulse Ox 97.9 F 85 17 127/61 97 05/10/18 03:23 05/10/18 03:23 05/10/18 03:23 05/10/18 03:23 05/10/18 03:23 General appearance: Present: cooperative, A&O X 3, pleasant, no acute distress, answers questions appropriately - Head Head exam: Present: normal inspection - Eye Eye exam: Present: EOMI, normal appearance - Neck Neck exam general surgery: Present: full ROM. Absent: tenderness - Respiratory Respiratory exam: Present: CTAB. Absent: chest wall tenderness, decreased breath sounds, respiratory distress, wheezes - Cardiovascular Cardiovascular exam: Present: RRR. Absent: diastolic murmur, systolic murmur - GI/Abdominal GI/Abdominal exam: Present: normal bowel sounds, soft. Absent: tenderness - Extremities Exam Extremities exam: Present: warm, radial pulses palpable and symmetrical. Absent : calf tenderness, pedal edema, tenderness - Neurological Exam Neurological exam: Present: no focal deficits, strengths equal and symetr throughout. Absent: motor sensory deficit, facial droop, speech deficit - Psychiatric Psychiatric exam: Present: normal mood - Skin Skin exam: Present: dry, normal color, warm Internal Med - H&P Results - Labs CBC & Chem 7: 05/10/18 04:11 05/10/18 04:11 - Assessment and plan (1) Syncope Current Visit: Yes Status: Acute Assessment and plan: Patient had a syncope event at home, resulting in a fall and an unknown amount of time on the ground. CT head was negative and initial lab work within normal limits. Patient's blood pressure was 109/83 in the ER. EKG showed ventricular paced rhythm. Patient does not appear dehydrated, blood pressure also within normal limits. Recent pacemaker placed by cardiology, should review functionality. Check orthostatic blood pressures Consider interrogation of pacemaker by cardiology Monitor blood sugars Qualifiers: Syncope type: unspecified Qualified Code(s): R55 - Syncope and collapse (2) Dizziness Current Visit: Yes Status: Acute Assessment and plan: Resolved at this time, patient was able to ambulate to and from the bathroom without difficulty while being monitored. Consider PT for balance assessment, though patient normally walks with a walker at home while ambulating. (3) S/P cardiac pacemaker procedure Current Visit: No Status: Acute Assessment and plan: Consider interrogation of pacemaker (4) Diabetes Current Visit: No Status: Chronic Assessment and plan: Patient's blood sugar was 148 in the emergency room. Not on insulin at home. Continue to monitor blood sugars Sliding scale insulin as needed Qualifiers: Diabetes mellitus type: type 2 Diabetes mellitus longterm insulin use: without longterm use Diabetes mellitus complication status: without complication Qualified Code(s): E11.9 - Type 2 diabetes mellitus without complications (5) Third degree AV block Current Visit: No Status: Acute Assessment and plan: Status post pace maker placement. - Time Spent With Patient Total time spent is greater than 50% in coordination of care (as documented) at patient's floor/unit and/or counseling patient: Greater than 35 minutes
[2018-05-10 04:38] LABS: Hematocrit 33.9 % (37.5-50.1); Hemoglobin 10.6 g/dL (12.9-16.9); Mean Corpuscular HGB Conc 31.3 g/dL (31.6-35.5); Mean Corpuscular Hemoglobin 24.4 pg (28.0-33.3); Mean Corpuscular Volume 78.1 fL (83.0-100.0); Mean Platelet Volume 11.6 fL (9.4-12.4); Platelet Count 149 K/mcL (140-400); Red Blood Count 4.34 M/mcL (4.19-5.50); Red Cell Distribution Width 15.9 % (11.5-14.5)
[2018-05-10 04:55] LABS: BUN/Creatinine Ratio 24 (6-26); Blood Urea Nitrogen 23 mg/dL (6-20); Carbon Dioxide 28 mEq/L (23-29); Chloride 102 mEq/L (98-107); Glucose 151 mg/dL (70-105); Osmolality,Calculated 289 (280-300); Potassium 3.8 mEq/L (3.5-5.1); Sodium 136 mEq/L (136-145); eGFR For Non-African Americans > 60 (> 60)
--- NOTE | 2018-05-10 08:05 | Event Note ---
Date of Encounter: 05/10/18 Time of Encounter: 07:55 Patient seen this morning. Admitted for syncope. Was at home yesterday evening watching TV in his chair when he got up to get some fresh air and next thing he knows he is waking up from the floor of his house. About 3-4 hours had passed by then. He reports hitting back of his head on the hardwood floor. He denies tongue biting, loss of bowel bladder function. He denies hx of seizures. Nov 2017 he has pacemaker placed due to 3rd degree av block. Exam: general: pleasant in no acute distress heart: regular rate and rhythm, paced lungs: CTAB abdomen: nontender, non-distended +BS, RUQ abdominal scar (s/p cholecystectomy) vascular: pedal pulses 2/4 LE: absent pedal edema MSK: strength in all extremities grossly intact A/P syncope: unclear etiology cardiac vs neurological vs physical deconditioning troponin WNL, electrolytes wnl, hgb stable. echo 11/2017 LVEF 55% orthostatic vitals normal pacemaker check ordered PT order carotid dopplers ordered hx does not point towards seziures.
[2018-05-10] MEDS: Insulin LISPRO 300 UNITS/3 ML VIAL SQ SCH ×3 (08:47→17:19)
[2018-05-10] MEDS: Budesonide/Formoterol 160/4.5 MDI IH SCH ×2 (10:29→20:08)
[2018-05-10] MEDS ORDERED: Perflutren Lipid Microsphere 1.3 ML in 0.9 % Sodium Chloride 8.7 ML IVP ONE (13:32)
[2018-05-10] MEDS: Loratadine 10 MG TABLET PO SCH (15:04)
[2018-05-10] MEDS ORDERED: Mirtazapine 15 MG TABLET PO SCH (21:00)
[2018-05-11] MEDS: Budesonide/Formoterol 160/4.5 MDI IH SCH (07:34)
[2018-05-11] MEDS: Loratadine 10 MG TABLET PO SCH (07:54)
[2018-05-11] MEDS: Insulin LISPRO 300 UNITS/3 ML VIAL SQ SCH ×2 (07:55→11:56)
[2018-05-11 09:02] LABS: Estimated Average Glucose 177 mg/dl; Hemoglobin A1C 7.8 %
[2018-05-11 11:04] VITALS: BP 132/84
--- NOTE | 2018-05-11 12:37 | Event Note ---
Date of Encounter: 05/11/18 Time of Encounter: 12:36 - Cardiology Event Note Dual chamber PPM interrogated for syncope. Device functioning normally, no events were noted. Cardiology signing off. Reconsult PRN.
--- NOTE | 2018-05-11 12:41 | Discharge Summary ---
<Maryann Johns - Last Filed: 05/11/18 15:24> Date of Encounter: 05/11/18 Time of Encounter: 12:39 - Discharge Diagnosis (1) Syncope Priority: Primary Status: Acute Qualifiers: Syncope type: unspecified Qualified Code(s): R55 - Syncope and collapse (2) HTN (hypertension) Priority: Secondary Status: Chronic Qualifiers: Hypertension type: essential hypertension Qualified Code(s): I10 - Essential (primary) hypertension (3) HLD (hyperlipidemia) Priority: Secondary Status: Chronic Qualifiers: Hyperlipidemia type: unspecified Qualified Code(s): E78.5 - Hyperlipidemia , unspecified (4) COPD (chronic obstructive pulmonary disease) Priority: Secondary Status: Chronic Qualifiers: COPD type: unspecified COPD Qualified Code(s): J44.9 - Chronic obstructive pulmonary disease, unspecified (5) Diabetes Priority: Secondary Status: Chronic Qualifiers: Diabetes mellitus type: type 2 Diabetes mellitus ux architect insulin use: without ux architect use Diabetes mellitus complication status: without complication Qualified Code(s): E11.9 - Type 2 diabetes mellitus without complications Hospital course: Mr. Varela is a 58 year old male with multple comorbitesi inlducing history of DM , CHF and CAD with pacemaker presents by EMS to Er with syncopal episode. He described feeling "stuffy" and urge to go outside then unwitnessed loss of consciousness and awoke on floor after unknown period of time. In emergency room chest x-ray showed no acute cardiopulmonary abnormality, head CT showed no acute intracranial abnormality. Troponins were less than 0.03 and CBC and BMP were within normal limits. Admitted for further work up of syncope with normal orthostatic blood pressures, negative carotid duplex and essentially normal echocardiogram with EF 60 %. Pacemaker was placed three months ago after found to be in 3rd degree AV block and last interrogated about 6 weeks ago - Cardiology integrated today and found to be functioning properly. There is no clear cause for this syncopal episode but cation was cautioned to stay hydrated and given instruction for return to ER. He was discharge to home on same home medications. Discharge discussed with: patient - Time Spent with Patient Total time spent providing and/or coordinating discharge services: Greater than 30 minutes - Discharge Medications Home Medications: Albuterol Sulfate [Ventolin Hfa] 2 puff IH Q4H PRN 08/05/15 [History] Budesonide/Formoterol 160/4.5 [Symbicort] 2 puff IH BIDR 08/05/15 [History] Cholecalciferol (Vitamin D3) [Vitamin D3] 2,000 unit PO DAILY 08/05/15 [History] Clopidogrel [Plavix] 75 mg PO QAM 08/05/15 [History] Loratadine [Claritin] 10 mg PO QAM 08/05/15 [History] EPINEPHrine [Epipen] 0.3 mg IM ONCE PRN 10/01/16 [History] Omeprazole [PriLOSEC] 40 mg PO DAILY 10/01/16 [History] Lovastatin 80 mg PO HS 07/10/17 [History] Mirtazapine [Remeron] 15 mg PO HS 07/10/17 [History] Propylene Glycol/Peg 400 [Systane 0.3-0.4% Eye Drops] 1 drop OP Q6H PRN [History] Sertraline [Zoloft] 100 mg PO DAILY 07/10/17 [History] metFORMIN [Glucophage] 500 mg PO DAILY #30 tablet 07/13/17 [Rx] Lisinopril [Zestril] 10 mg PO DAILY 05/10/18 [History] Metoprolol [Lopressor] 12.5 mg PO BID 05/10/18 [History] Allergies/Adverse Reactions: 3 Allergy/AdvReac Type Severity Reaction Status Date / Time aspirin Allergy Anaphylaxis Verified 05/09/18 23:08 Bee Pollen Allergy Anaphylaxis Verified 05/09/18 23:08 naproxen [From Aleve] Allergy Anaphylaxis Verified 05/09/18 23:08 spider venom Allergy Swelling Verified 05/09/18 23:08 of Lip/Tongue/Throat Date of admission: 05/10/18 00:57 Primary care physician: Lenka Singh Consults: 05/10/18 08:01 Consult to Physical Therapy [CONS] Routine Comment: Evaluate, develop and implement POC Reason for Consult: unsteady on his feet, syncope. Does patient have active BEDREST order?: No Is patient medically & hemodynamically stable?: Yes Discharging clinician: Maryann Johns Anticipated date of discharge: 05/11/18 - Constitutional Vitals: Temp Pulse Resp BP Pulse Ox 98.0 F 88 17 132/84 95 05/11/18 11:04 05/11/18 11:04 05/11/18 11:04 05/11/18 11:04 05/11/18 11:04 General appearance: Present: cooperative, A&O X 3, pleasant, no acute distress, answers questions appropriately - Patient Status Disposition: Home, Self-Care Condition: Good Functional capacity at discharge: independent ambulation Overall status at discharge: patient is back to baseline - Discharge Instructions Follow Up With: Lenka Singh MD [Primary Care Provider] - 05/15/18 1:45 pm <Damián Garzon - Last Filed: 05/11/18 20:32> Date of Encounter: 05/11/18 - Discharge Diagnosis (1) Morbid obesity with BMI of 40.0-44.9, adult Status: Acute Hospital course: Mr. Varela is a 58 year old male - Time Spent with Patient Total time spent providing and/or coordinating discharge services: Date of admission: 05/10/18 00:57 Primary care physician: Lenka Singh Consults: 05/10/18 08:01 Consult to Physical Therapy [CONS] Routine Comment: Evaluate, develop and implement POC Reason for Consult: unsteady on his feet, syncope. Does patient have active BEDREST order?: No Is patient medically & hemodynamically stable?: Yes - Constitutional Vitals: Temp Pulse Resp BP Pulse Ox 98.0 F 88 17 132/84 95 05/11/18 11:04 05/11/18 11:04 05/11/18 11:04 05/11/18 11:04 05/11/18 11:04 - Attending Attestation Patient was seen and examined. I agree with the discharge summary as dictated above by the resident physician. Discharge plans and recommendations were made under my direct supervision.
--- NOTE | 2018-05-11 17:28 | Electrocardiograph Report ---
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
== END 2018-05-11 15:05 | disposition home or self-care (01) ==
LOC: EMEROO 23:03 → 3BNU 23:03
PROVIDERS: ADMIT Family Medicine; ATTEND Family Medicine

== ENCOUNTER 2018-06-15 18:10 | Observation (INO) ==
[2018-06-15] MEDS ORDERED: 0.9 % Sodium Chloride 1,000 ML IVC ONE (18:15)
--- NOTE | 2018-06-15 18:32 | Emergency Department Note ---
Disposition Clinical Impression: Near syncope, Atrial tachycardia Disposition: Admitted As Inpatient Condition: Good Referrals: Lenka Singh MD [Non-Partnered Physician] - Forms: ED Satisfaction Letter Time of Disposition: 20:13 Dizziness HPI - General Chief Complaint: ED Dizziness Stated Complaint: Heat Exhaustion Time Seen by Provider: 06/15/18 18:15 Source: patient, EMS Mode of arrival: EMS Limitations: no limitations Nursing Notes Reviewed: Yes Vital Signs Reviewed: Yes - History of Present Illness HPI Narrative: Mr. Varela is a 58 yo male that presents for presyncopal event just [employer]ET[employer]. He notes that he had been push mowing his yard for approx 30 mins, taking breaks when needed. He had just put up his mower and was going to move his truck when he felt dizzy and thought he might pass out. He notes history of syncopal event previously states this felt the same. He sat down and flagged a friend to call EMS. He notes he was short of breath and used his albuterol inhaler x once; does note that his breathing has improved, but feel some shortness of breath. Denies chest pain or tightness. Denies headaches, vision changes, nausea, vomiting, abdominal pain, dysuria, diarrhea, fevers. PMH: of COPD, asthma, CHF, pacemaker place 4-5 months ago, DOROTHY on CPAP, knee arthritis (in brace). - Related Data Home Medications Medication Instructions Recorded Confirmed Albuterol Sulfate [Ventolin Hfa] 2 puff IH Q4H PRN 08/05/15 05/10/18 Budesonide/Formoterol 160/4.5 2 puff IH BIDR 08/05/15 05/10/18 [Symbicort] Cholecalciferol (Vitamin D3) 2,000 unit PO DAILY 08/05/15 05/10/18 [Vitamin D3] Clopidogrel [Plavix] 75 mg PO QAM 08/05/15 05/10/18 Loratadine [Claritin] 10 mg PO QAM 08/05/15 05/10/18 EPINEPHrine [Epipen] 0.3 mg IM ONCE PRN 10/01/16 05/10/18 Omeprazole [PriLOSEC] 40 mg PO DAILY 10/01/16 05/10/18 Lovastatin 80 mg PO HS 07/10/17 05/10/18 Mirtazapine [Remeron] 15 mg PO HS 07/10/17 05/10/18 Propylene Glycol/Peg 400 [Systane 1 drop OP Q6H PRN 07/10/17 05/10/18 0.3-0.4% Eye Drops] Sertraline [Zoloft] 100 mg PO DAILY 07/10/17 05/10/18 Lisinopril [Zestril] 10 mg PO DAILY 05/10/18 05/10/18 Metoprolol [Lopressor] 12.5 mg PO BID 05/10/18 05/10/18 Previous Rx's Medication Instructions Recorded metFORMIN [Glucophage] 500 mg PO DAILY #30 tablet 07/13/17 Allergies Allergy/AdvReac Type Severity Reaction Status Date / Time aspirin Allergy Anaphylaxis Verified 05/09/18 23:08 Bee Pollen Allergy Anaphylaxis Verified 05/09/18 23:08 naproxen [From Aleve] Allergy Anaphylaxis Verified 05/09/18 23:08 spider venom Allergy Swelling Verified 05/09/18 23:08 of Lip/Tongue/Throat All systems ED: reviewed and negative except as stated. Review of Systems: As Per [facility] Past Medical History - Past Medical History Attestation: Yes The following information was validated with the patient. Source: patient Medical history: Reports: arthritis, asthma, CHF, COPD, coronary artery disease , DVT, diabetes, GERD, hyperlipidemia, hypertension, other Surgical history: Reports: appendectomy, cholecystectomy, pacemaker/AICD Psychiatric history: Reports: depression - Social History Smoking Status: Never smoker Smokeless Tobacco Status: No Alcohol use: Reports: none Drug use: Reports: none Physical Exam - General Limitations: no limitations General appearance: alert, in no apparent distress - Head Head exam: atraumatic, normocephalic - Eye Eye exam: Present: normal appearance. Absent: scleral icterus, conjunctival injection - ENT ENT exam: normal exam, mucous membranes moist - Neck Neck exam: Present: normal inspection, full ROM - Chest Chest inspection: Present: normal inspection, symmetric chest wall rise - Respiratory Respiratory exam: Present: normal lung sounds bilaterally. Absent: respiratory distress, wheezes, accessory muscle use - Cardiovascular Cardiovascular exam: Present: tachycardia - Abdominal Exam Abdominal exam: Present: soft, Non-Tender. Absent: distention, guarding, rebound, rigidity - Extremities Exam Extremities exam: Present: normal inspection, full ROM, other (hinged brace on left knee). Absent: tenderness, pedal edema - Neurological Exam Neurological exam: Present: alert, oriented X3 - Psychiatric Psychiatric exam: Present: normal affect, normal mood - Skin Skin exam: Present: warm, dry, intact, normal color. Absent: cyanosis, diaphoresis, erythema, pallor, mottled Course - Consultations Consultation #1: Spoke to Director [employer] cash application representative, Dr. Wolf, states happy to see patient as follow up or consult based on our clinical opinion. Called and spoke to Hospitalist, Dr. Raphael, who accepted patient for observation. Time: 20:05 Vital Signs Temperature 97.8 F 06/15/18 18:14 Pulse Rate 104 06/15/18 18:14 Respiratory Rate 18 06/15/18 18:14 Blood Pressure 133/70 06/15/18 18:14 O2 Sat by Pulse Oximetry 96 06/15/18 18:14 Temperature 97.8 F 06/15/18 18:14 Pulse Rate 104 06/15/18 18:14 Respiratory Rate 20 06/15/18 18:44 Blood Pressure 133/70 06/15/18 18:14 O2 Sat by Pulse Oximetry 94 06/15/18 18:44 Oxygen Delivery Oxygen Delivery Room Air Dizziness - MDM Narrative Medical decision making narrative: Patient is well appearing, no acute distress, non toxic appearing. He denies chest pain, but describes presyncopal event. Will obtained cardiac workup and interrogate patient's pacemaker, then plan to discuss with cardiology. [employer] called with pacer report; episode of Atrial Tach this afternoon at 4: 29 that lasted 1min 45sec with HR up to 171BPM. Also noted to have 9 beat run of VT on May 23. Labs essentially normal. Concern for arrhythmia induced presyncopal event, plan to admit patient for observation and cardiology consult. - Lab Data Lab results reviewed: Yes I reviewed the patient's lab results. Result diagrams: 06/15/18 19:00 06/15/18 19:00 Lab Results 06/15/18 06/15/18 06/15/18 Range/Units 19:00 19:00 19:00 WBC 6.4 (4.3-11.1) K/mcL RBC 4.78 (4.19-5.50) M/mcL Hgb 12.1 L (12.9-16.9) g/dL Hct 37.7 (37.5-50.1) % MCV 78.9 L (83.0-100.0) fL MCH 25.3 L (28.0-33.3) pg MCHC 32.1 (31.6-35.5) g/dL RDW 15.9 H (11.5-14.5) % Plt Count 169 (140-400) K/mcL MPV 11.7 (9.4-12.4) fL Immature Gran % 0.5 (0-4) % Seg Neutrophils % 60.1 % Lymphocytes % 24.4 % Monocytes % 10.1 % Eosinophils % 4.3 % Basophils % 0.6 % Neutrophils # 3.8 (1.6-8.9) K/mcL Lymphocytes # 1.6 (0.6-4.6) K/mcL Monocytes # 0.6 (0.0-1.3) K/mcL Eosinophils # 0.3 (0.0-0.6) K/mcL Basophils # 0.0 (0.0-0.2) K/mcL PT 11.6 (9.4-12.1) Seconds INR 1.0 APTT 35.3 (26.0-36.0) Seconds Sodium 136 (136-145) mEq/L Potassium 4.1 (3.5-5.1) mEq/L Chloride 102 (98-107) mEq/L Carbon Dioxide 23 (23-29) mEq/L BUN 18 (6-20) mg/dL Creatinine 1.18 (0.70-1.30) mg/dL Est GFR ( Amer) > 60 (> 60) Est GFR (Non-Af Amer) > 60 (> 60) BUN/Creatinine Ratio 15 (6-26) Glucose 156 H (70-105) mg/dL Calculated Osmolality 287 (280-300) Calcium 9.4 (8.6-10.3) mg/dL Troponin I < 0.03 (< 0.04) ng/mL B-Natriuretic Peptide (Less than 100) pg/mL 06/15/18 Range/Units 19:00 WBC (4.3-11.1) K/mcL RBC (4.19-5.50) M/mcL Hgb (12.9-16.9) g/dL Hct (37.5-50.1) % MCV (83.0-100.0) fL MCH (28.0-33.3) pg MCHC (31.6-35.5) g/dL RDW (11.5-14.5) % Plt Count (140-400) K/mcL MPV (9.4-12.4) fL Immature Gran % (0-4) % Seg Neutrophils % % Lymphocytes % % Monocytes % % Eosinophils % % Basophils % % Neutrophils # (1.6-8.9) K/mcL Lymphocytes # (0.6-4.6) K/mcL Monocytes # (0.0-1.3) K/mcL Eosinophils # (0.0-0.6) K/mcL Basophils # (0.0-0.2) K/mcL PT (9.4-12.1) Seconds INR APTT (26.0-36.0) Seconds Sodium (136-145) mEq/L Potassium (3.5-5.1) mEq/L Chloride (98-107) mEq/L Carbon Dioxide (23-29) mEq/L BUN (6-20) mg/dL Creatinine (0.70-1.30) mg/dL Est GFR ( Amer) (> 60) Est GFR (Non-Af Amer) (> 60) BUN/Creatinine Ratio (6-26) Glucose (70-105) mg/dL Calculated Osmolality (280-300) Calcium (8.6-10.3) mg/dL Troponin I (< 0.04) ng/mL B-Natriuretic Peptide 49 (Less than 100) pg/mL - EKG Data EKG attestation: Yes I reviewed and interpreted this EKG. EKG results narrative: Ventricularly paced rhythm. No STEMI. No significant changes compared to previous. When compared to previous EKG there are: no significant changes
[2018-06-15] MEDS ORDERED: Albuterol 2.5 MG/3 ML NEBULIZER IH ONE (18:34)
--- NOTE | 2018-06-15 18:46 | Emergency Department Note ---
Disposition Clinical Impression: Near syncope Disposition: Still a Patient Forms: ED Satisfaction Letter General Adult HPI - General Chief complaint: ED Dizziness Stated complaint: Heat Exhaustion Time Seen by Provider: 06/15/18 18:15 Source: patient, EMS Mode of arrival: EMS Limitations: no limitations - History of Present Illness Pain Scale: 0 - Related Data Home Medications Medication Instructions Recorded Confirmed Albuterol Sulfate [Ventolin Hfa] 2 puff IH Q4H PRN 08/05/15 05/10/18 Budesonide/Formoterol 160/4.5 2 puff IH BIDR 08/05/15 05/10/18 [Symbicort] Cholecalciferol (Vitamin D3) 2,000 unit PO DAILY 08/05/15 05/10/18 [Vitamin D3] Clopidogrel [Plavix] 75 mg PO QAM 08/05/15 05/10/18 Loratadine [Claritin] 10 mg PO QAM 08/05/15 05/10/18 EPINEPHrine [Epipen] 0.3 mg IM ONCE PRN 10/01/16 05/10/18 Omeprazole [PriLOSEC] 40 mg PO DAILY 10/01/16 05/10/18 Lovastatin 80 mg PO HS 07/10/17 05/10/18 Mirtazapine [Remeron] 15 mg PO HS 07/10/17 05/10/18 Propylene Glycol/Peg 400 [Systane 1 drop OP Q6H PRN 07/10/17 05/10/18 0.3-0.4% Eye Drops] Sertraline [Zoloft] 100 mg PO DAILY 07/10/17 05/10/18 Lisinopril [Zestril] 10 mg PO DAILY 05/10/18 05/10/18 Metoprolol [Lopressor] 12.5 mg PO BID 05/10/18 05/10/18 Previous Rx's Medication Instructions Recorded metFORMIN [Glucophage] 500 mg PO DAILY #30 tablet 07/13/17 Allergies Allergy/AdvReac Type Severity Reaction Status Date / Time aspirin Allergy Anaphylaxis Verified 05/09/18 23:08 Bee Pollen Allergy Anaphylaxis Verified 05/09/18 23:08 naproxen [From Aleve] Allergy Anaphylaxis Verified 05/09/18 23:08 spider venom Allergy Swelling Verified 05/09/18 23:08 of Lip/Tongue/Throat Past Medical History - Past Medical History Medical history: Reports: arthritis, asthma, CHF, COPD, coronary artery disease , DVT, diabetes, GERD, hyperlipidemia, hypertension, other Surgical history: Reports: appendectomy, cholecystectomy, pacemaker/AICD Psychiatric history: Reports: depression - Social History Smoking Status: Never smoker Smokeless Tobacco Status: No Alcohol use: Reports: none Drug use: Reports: none Physical Exam - General Limitations: no limitations General appearance: alert, in no apparent distress Course Vital Signs Temperature 97.8 F 06/15/18 18:14 Pulse Rate 104 06/15/18 18:14 Respiratory Rate 18 06/15/18 18:14 Blood Pressure 133/70 06/15/18 18:14 O2 Sat by Pulse Oximetry 96 06/15/18 18:14 Temperature 97.8 F 06/15/18 18:14 Pulse Rate 104 06/15/18 18:14 Respiratory Rate 18 06/15/18 18:14 Blood Pressure 133/70 06/15/18 18:14 O2 Sat by Pulse Oximetry 96 06/15/18 18:14 Oxygen Delivery Oxygen Delivery Room Air Attestation Statement - Attestation Attestation: I examined this patient and my medical decision-making was reviewed with the Resident Physician. I agree with the documented findings, disposition and treatment plan as described except to the extent set forth below. 58 year old male presents to the ED with complaints of near syncope while he was mowing his lawn today for abotu 30 minutes. Patinet states that he has a pacemaker for atrial fibrillation and states that he has a histroy of CHF and COPD and he has been using his inhalers secondary to seasonal changes. PAtinet states that he did not his head or neck and did not have LOC. [employer] interrogation shows that he had [id number] run of atrial tachycardia and now has resovled with one run of Vtach in may 23. WE will continue with cardiac workup and then consult with cardiology before dispstion has been made.
[2018-06-15 19:09] LABS: Basophils % 0.6 %; Eosinophils # 0.3 K/mcL (0.0-0.6); Eosinophils % 4.3 %; Hematocrit 37.7 % (37.5-50.1); Hemoglobin 12.1 g/dL (12.9-16.9); Immature Granulocytes % 0.5 % (0-4); Lymphocytes # 1.6 K/mcL (0.6-4.6); Lymphocytes % 24.4 %; Mean Corpuscular HGB Conc 32.1 g/dL (31.6-35.5); Mean Corpuscular Hemoglobin 25.3 pg (28.0-33.3); Mean Corpuscular Volume 78.9 fL (83.0-100.0); Mean Platelet Volume 11.7 fL (9.4-12.4); Monocytes # 0.6 K/mcL (0.0-1.3); Monocytes % 10.1 %; Neutrophils # 3.8 K/mcL (1.6-8.9); Platelet Count 169 K/mcL (140-400); Red Blood Count 4.78 M/mcL (4.19-5.50); Red Cell Distribution Width 15.9 % (11.5-14.5); Segmented Neutrophils % 60.1 %
[2018-06-15 19:15] LABS: Prothrombin Time 11.6 Seconds (9.4-12.1)
[2018-06-15 19:17] LABS: Activated Partial Thrombo Time 35.3 Seconds (26.0-36.0)
[2018-06-15 19:31] LABS: BUN/Creatinine Ratio 15 (6-26); Blood Urea Nitrogen 18 mg/dL (6-20); Calcium 9.4 mg/dL (8.6-10.3); Carbon Dioxide 23 mEq/L (23-29); Chloride 102 mEq/L (98-107); Glucose 156 mg/dL (70-105); Osmolality,Calculated 287 (280-300); Potassium 4.1 mEq/L (3.5-5.1); Sodium 136 mEq/L (136-145); Troponin I < 0.03 ng/mL (< 0.04); eGFR For Non-African Americans > 60 (> 60)
[2018-06-15] MEDS ORDERED: Naloxone 0.4 MG/ML INJ IVP PRN (20:02)
[2018-06-15] MEDS: 0.9 % Sodium Chloride 1,000 ML IVC SCH (23:17)
[2018-06-15] MEDS ORDERED: Artificial Tears SOLN 15 ML BOTTLE OP PRN (23:39)
[2018-06-16 07:14] LABS: Hematocrit 34.1 % (37.5-50.1); Hemoglobin 10.6 g/dL (12.9-16.9); Mean Corpuscular HGB Conc 31.1 g/dL (31.6-35.5); Mean Corpuscular Hemoglobin 24.7 pg (28.0-33.3); Mean Corpuscular Volume 79.5 fL (83.0-100.0); Platelet Count 153 K/mcL (140-400); Red Blood Count 4.29 M/mcL (4.19-5.50); Red Cell Distribution Width 16.1 % (11.5-14.5)
[2018-06-16 07:32] LABS: Alanine Aminotransferase 30 Units/L (7-52); Albumin 3.5 g/dL (3.5-5.7); Albumin/Globulin Ratio 1.4 (1.1-2.2); Alkaline Phosphatase 68 Units/L (34-104); Aspartate Amino Transferase 38 Units/L (13-39); BUN/Creatinine Ratio 20 (6-26); Bilirubin,Total 0.5 mg/dL (0.3-1.0); Blood Urea Nitrogen 20 mg/dL (6-20); Calcium 8.3 mg/dL (8.6-10.3); Carbon Dioxide 23 mEq/L (23-29); Chloride 104 mEq/L (98-107); Globulin 2.5 g/dL (2.4-3.5); Glucose 162 mg/dL (70-105); Osmolality,Calculated 286 (280-300); Potassium 3.9 mEq/L (3.5-5.1); Sodium 135 mEq/L (136-145); eGFR For Non-African Americans > 60 (> 60)
[2018-06-16] MEDS: Budesonide/Formoterol 160/4.5 1 PUFF INH IH SCH ×2 (07:48→21:34)
[2018-06-16] MEDS: Cholecalciferol (D-3) 1,000 UNIT TABLET PO SCH (08:41)
[2018-06-16] MEDS: Loratadine 10 MG TABLET PO SCH (08:41)
--- NOTE | 2018-06-16 09:07 | Internal Med History&Physical ---
Date of Encounter: 06/18/18 Time of Encounter: 20:00 Internal Medicine - H&P: HPI Chief complaint: Presyncope History of present illness: Mr. Varela is a 58 year old male with a past medical history of CHF, COPD, coronary artery disease and diabetes among others who presented to the ED after a near syncopal episode today while he was mowing the lawn. After 30 minutes of mowing the lawn patient suddenly felt dizzy and lightheaded. He went to go and sit down immediately thereafter. Denies loss of consciousness. No reports of chest pain or shortness of breath. Patient was in his usual state of health otherwise without report of recent illness. Patient has a pacemaker which was interrogated and showed a run of atrial tachycardia for 1 minute and 45 seconds occurring earlier that day consistent with the patient's timing of his symptoms. Cardiology was consulted and recommended either inpatient versus outpatient management. Patient was accepted and admitted for observation with cardiology to follow. Past Med Surg Social Fam HX - Past Medical History Medical history: arthritis, asthma, CHF, COPD, coronary artery disease, DVT, diabetes, GERD, hyperlipidemia, hypertension, other Additional medical history: pleurisy Psychiatric history: depression - Past Surgical History Surgical History: appendectomy, cholecystectomy, pacemaker/AICD, tonsilectomy Additional surgical history: lhc - Social History Smoking Status: Never smoker Smokeless Tobacco Status: No Alcohol use: none Drug use: none - Family History Mother Adopted: Yes Internal Medicine - H&P: Meds Albuterol Sulfate [Ventolin Hfa] 2 puff IH Q4H PRN 08/05/15 [History] Budesonide/Formoterol 160/4.5 [Symbicort] 2 puff IH DAILY 08/05/15 [History] Cholecalciferol (Vitamin D3) [Vitamin D3] 2,000 unit PO DAILY 08/05/15 [History] Clopidogrel [Plavix] 75 mg PO QAM 08/05/15 [History] Loratadine [Claritin] 10 mg PO QAM 08/05/15 [History] EPINEPHrine [Epipen] 0.3 mg IM ONCE PRN 10/01/16 [History] Omeprazole [PriLOSEC] 40 mg PO DAILY 10/01/16 [History] Lovastatin 80 mg PO DAILY 07/10/17 [History] Mirtazapine [Remeron] 15 mg PO HS 07/10/17 [History] Sertraline [Zoloft] 100 mg PO DAILY 07/10/17 [History] metFORMIN [Glucophage] 500 mg PO DAILY #30 tablet 07/13/17 [Rx] Lisinopril [Zestril] 5 mg PO DAILY #30 tablet 06/17/18 [Rx] Metoprolol [Lopressor] 25 mg PO BID #60 tablet 06/17/18 [Rx] 3 Allergy/AdvReac Type Severity Reaction Status Date / Time aspirin Allergy Anaphylaxis Verified 05/09/18 23:08 Bee Pollen Allergy Anaphylaxis Verified 05/09/18 23:08 naproxen [From Aleve] Allergy Anaphylaxis Verified 05/09/18 23:08 spider venom Allergy Swelling Verified 05/09/18 23:08 of Lip/Tongue/Throat All Systems PM: A 10-system review of systems was performed and is negative for pertinent findings except as documented above in the HPI. - Constitutional Constitutional: no chills, no fever(s), no night sweats - EENT Eyes: no change in vision, no discharge, no pain, no photophobia Ears: no ear discharge, no ear pain, no tinnitus Nose, mouth and throat: no dysphagia, no nasal discharge, no neck pain, no sore throat - Cardiovascular Cardiovascular ROS IM: no chest pain, no diaphoresis, no dyspnea, no lightheadedness, no palpitations, no syncope - Respiratory Respiratory: no cough, no dyspnea, no wheezing, no excessive phlegm production - Gastrointestinal Gastrointestinal: no abdominal pain, no diarrhea, no hematemesis, no hematochezia, no melena, no nausea, no vomiting - Musculoskeletal Musculoskeletal ROS IM: no numbness, no tingling - Integumentary Integumentary IM: no rash, no unusual bruising - Neurological Neurological ROS: no confusion, no convulsions, no focal weakness, no numbness, no tingling, no tremor(s) - Hematologic/Lymphatic Hematologic/Lymphatic: no easy bruising - Constitutional Vitals: Temp Pulse Resp BP Pulse Ox 97.6 F 80 16 131/72 97 06/16/18 07:22 06/16/18 07:22 06/16/18 07:48 06/16/18 07:22 06/16/18 07:48 Exam: General: Alert and oriented 3. Lying in bed in no acute distress Skin:Normal color, no rash, no lesions. HEENT:EOM, pupils equal, round and reactive. Cardiovascular:Normal S1 & S2, no rubs, murmurs or gallops. No JVD. Pulse regular. Lungs:Normal breath sounds, no wheezes or crackles. Abdomen:Soft, non-tender, no rigidity. Extremities:No deformity, no edema or tenderness, no joint swelling or clubbing. Neurological:Normal cognition and motor skills. Pulses:Carotid and radial pulses normal +2. Rest of the physical exam is non contributory Internal Med - H&P Results - Labs CBC & Chem 7: 06/16/18 06:45 06/16/18 06:45 Labs: Short CBC 06/16/18 Range/Units 06:45 WBC 5.8 (4.3-11.1) K/mcL Hgb 10.6 L D (12.9-16.9) g/dL Hct 34.1 L (37.5-50.1) % Plt Count 153 (140-400) K/mcL BMP 06/16/18 06:45 Sodium 135 L Potassium 3.9 Chloride 104 Carbon Dioxide 23 BUN 20 Creatinine 0.98 Glucose 162 H Calcium 8.3 L Liver Function 06/16/18 Range/Units 06:45 Total Bilirubin 0.5 (0.3-1.0) mg/dL AST 38 (13-39) Units/L ALT 30 (7-52) Units/L Alkaline Phosphatase 68 (34-104) Units/L Albumin 3.5 (3.5-5.7) g/dL - Assessment and plan (1) Near syncope Status: Acute Assessment and plan: Presyncope with symptoms of dizziness and lightheadedness which occurred While patient was mowing his lawn. Interrogation of the patient's pacemaker shows a run of atrial tachycardia for 1 minute and 45 seconds consistent with timing of patient's account support rep. EKG reviewed and unchanged from previous EKG. Patient had a recent echo toward the end of April which showed indeterminate diastolic dysfunction with an ejection fraction of 60% with possible borderline pulmonary hypertension. We will repeat echo. We will continue patient on telemetry. Cardiology consult in the morning. (2) Diabetes Status: Chronic Qualifiers: Diabetes mellitus type: type 2 Diabetes mellitus fdc insulin use: without fdc use Diabetes mellitus complication status: with unspecified complications Qualified Code(s): E11.8 - Type 2 diabetes mellitus with unspecified complications (3) COPD (chronic obstructive pulmonary disease) Status: Chronic Assessment and plan: No evidence of acute exacerbation. Continue home inhalers. Qualifiers: COPD type: unspecified COPD Qualified Code(s): J44.9 - Chronic obstructive pulmonary disease, unspecified (4) Obstructive sleep apnea Status: Chronic Assessment and plan: BiPAP at night. (5) HTN (hypertension) Status: Chronic Assessment and plan: Blood pressure stable continue home antihypertensives for now. Qualifiers: Hypertension type: essential hypertension Qualified Code(s): I10 - Essential (primary) hypertension - Time Spent With Patient Total time spent is greater than 50% in coordination of care (as documented) at patient's floor/unit and/or counseling patient:
--- NOTE | 2018-06-16 10:37 | Cardiology Consult Note ---
<Rosy Rubi - Last Filed: 06/16/18 10:46> Date of Encounter: 06/16/18 Time of Encounter: 09:30 Assessment and Plan (1) Near syncope Status: Acute Likely secondary to prolonged exposure outdoors in the heat. Reports dyspnea and dizziness after mowing grass yesterday, symptoms resolved once he got in the air conditioning in the squad Device check completed in the ED demonstrated 1 min 45 second episode of atrial tachycardia; prior episode of NSVT (asymptomatic) on 05/23. Reviewed with Dr. Howard; recommend improved HR control. Will increase BB to 25 mg lopressor BID; will decrease ACEi to allow for further dose adjustments of BB. Echo pending; if no significant findings, anticipate sign-off. (2) Pacemaker Status: Chronic s/p PPM placement Routinely follows with [facility] Discussion w patient/family: The assessment and plan as outlined above was discussed with the patient and/or family members who expressed understanding and agreement. All questions were answered. Thank you for involving us in the care of your patient. Please call with any questions. The patient will be discussed and reviewed with Dr. Howard; changes to be made accordingly. History of Present Illness Consult date: 06/16/18 Requesting physician: Swapnil Reynoso Consult reason: Atrial tachycardia, near syncope Chief complaint: Dizziness, shortness of breath History of present illness: Mr. Varela is a 58 year old male with PMHx significant of DOROTHY (CPAP), GERD, obesity, and s/p PPM (complete heart block) who presented to the ED via EMS due to dizziness and shortness of breath. Patient reports symptoms started yesterday after mowing grass in the afternoon. He feels as thought he was outside in the heat for far too long. Reports he sat down in the shade and felt as though he was going to pass out which prompted call to EMS; symptoms last for ~15-30 minutes. Reports symptoms immediately resolved when he was loaded in the ambulance in the air conditioning. Denies recurrence of symptoms since admission. He denies chest pain/discomfort, leg edema, or any other CV symptoms. Prior CV testing: TTE 05/10/18: LVEF 60%, mild MR/TR, normal wall motion Past Med Surg Social Fam HX - Past Medical History Attestation: Yes The following information was validated with the patient. Source: patient Medical history: arthritis, asthma, CHF, COPD, coronary artery disease, DVT, diabetes, GERD, hyperlipidemia, hypertension Additional medical history: pleurisy Psychiatric history: depression - Past Surgical History Surgical History: appendectomy, cholecystectomy, pacemaker/AICD, tonsilectomy Additional surgical history: lhc - Social History Smoking Status: Never smoker Smokeless Tobacco Status: No Alcohol use: none Drug use: none - Family History Mother Adopted: Yes Medications and Allergies Albuterol Sulfate [Ventolin Hfa] 2 puff IH Q4H PRN 08/05/15 [History] Budesonide/Formoterol 160/4.5 [Symbicort] 2 puff IH DAILY 08/05/15 [History] Cholecalciferol (Vitamin D3) [Vitamin D3] 2,000 unit PO DAILY 08/05/15 [History] Clopidogrel [Plavix] 75 mg PO QAM 08/05/15 [History] Loratadine [Claritin] 10 mg PO QAM 08/05/15 [History] EPINEPHrine [Epipen] 0.3 mg IM ONCE PRN 10/01/16 [History] Omeprazole [PriLOSEC] 40 mg PO DAILY 10/01/16 [History] Lovastatin 80 mg PO DAILY 07/10/17 [History] Mirtazapine [Remeron] 15 mg PO HS 07/10/17 [History] Sertraline [Zoloft] 100 mg PO DAILY 07/10/17 [History] metFORMIN [Glucophage] 500 mg PO DAILY #30 tablet 07/13/17 [Rx] Lisinopril [Zestril] 5 mg PO DAILY #30 tablet 06/17/18 [Rx] Metoprolol [Lopressor] 25 mg PO BID #60 tablet 06/17/18 [Rx] 3 Allergy/AdvReac Type Severity Reaction Status Date / Time aspirin Allergy Anaphylaxis Verified 05/09/18 23:08 Bee Pollen Allergy Anaphylaxis Verified 05/09/18 23:08 naproxen [From Aleve] Allergy Anaphylaxis Verified 05/09/18 23:08 spider venom Allergy Swelling Verified 05/09/18 23:08 of Lip/Tongue/Throat All Systems Review: The remainder of the systems were reviewed and are negative - Cardiovascular Cardiovascular: as per HPI Physical Examination Vital Signs, Last 4 Hours Temp Pulse Resp BP Pulse Ox 09/04/18 07:48 16 97 06/16/18 07:22 97.6 F 80 15 131/72 96 General: Conversant, Other (morbidly obese) HEENT: Atraumatic, Normocephaly Cardiac: Reg Rate and Rhythm, Normal S1 and S2 Lungs: Normal Breath Sounds Neuro: Alert and responsive Abdomen: Soft, Other (large) Skin: No rashes noted on visualized skin Musculoskeletal: No Chest Wall Tenderness Extremities: No Edema, Normal Pulses Results 06/16/18 06:45 06/16/18 06:45 Lab Results 06/16/18 06/16/18 06:45 06:45 WBC 5.8 Hgb 10.6 L D Hct 34.1 L Plt Count 153 Sodium 135 L Potassium 3.9 Chloride 104 Carbon Dioxide 23 BUN 20 Creatinine 0.98 Glucose 162 H Calcium 8.3 L Total Bilirubin 0.5 AST 38 ALT 30 Alkaline Phosphatase 68 Active Medications Albuterol Sulfate (Albuterol Inhaler) 2 puff IH [id number] PRN PRN Reason: Shortness Of Breath Stop: 12/16/18 00:01 Artificial Tears ([place] Tears) 1 drop OP Q6H PRN PRN Reason: Dry Eye(s) Atorvastatin Calcium (Lipitor) 20 mg PO DAILY [facility] Stop: 12/16/18 09:01 Last Admin: 06/16/18 08:41 Dose: 20 mg Budesonide/Formoterol Fumarate (Symbicort) 2 puff IH BIDRESP ANDREY PRN Reason: Protocol Stop: 12/16/18 10:01 Last Admin: 06/16/18 07:48 Dose: 2 puff Clopidogrel Bisulfate (Plavix) 75 mg PO QAM [facility] Stop: 12/16/18 09:01 Last Admin: 06/16/18 08:41 Dose: 75 mg Sodium Chloride (0.9 % Sodium Chloride) 1,000 mls @ 100 mls/hr IVC .Q10H ANDREY Stop: 06/16/18 16:14 Last Admin: 06/15/18 23:17 Dose: 100 mls/hr Lisinopril (Zestril) 5 mg PO DAILY ANDREY PRN Reason: Protocol Stop: 12/17/18 09:01 Loratadine (Claritin) 10 mg PO QAM ANDREY PRN Reason: Protocol Stop: 12/16/18 09:01 Last Admin: 09/04/18 08:41 Dose: 10 mg Metoprolol Tartrate (Lopressor) 12.5 mg PO ONCE ONE Stop: 06/16/18 12:01 Metoprolol Tartrate (Lopressor) 25 mg PO BID [facility] Stop: 12/16/18 21:01 Mirtazapine (Remeron) 15 mg PO HS [facility] Stop: 12/16/18 21:01 Naloxone HCl (Narcan) 0.4 mg IVP Q2MIN PRN PRN Reason: SEE COMMENTS Stop: 12/15/18 20:03 Omeprazole (Prilosec) 40 mg PO DAILY [facility] Stop: 12/16/18 09:01 Last Admin: 06/16/18 08:41 Dose: 40 mg Sertraline HCl (Zoloft) 100 mg PO DAILY [facility] Stop: 12/16/18 09:01 Last Admin: 06/16/18 08:41 Dose: 100 mg Vitamin D (Vitamin D) 1,000 unit PO DAILY [facility] Stop: 12/16/18 09:01 Last Admin: 06/16/18 08:41 Dose: 1,000 unit - Imaging and Cardiology Echo: report reviewed - EKG Interpretation EKG results cardiology: personally reviewed Consult Discharge Plan - Plan Instructions: Metoprolol (By mouth), Lisinopril (By mouth), Chronic Obstructive Pulmonary Disease (DC), Chronic Hypertension (DC) Additional Instructions: F/up with PCP in 1-2 weeks F/up with Cardiology in 3-4 weeks Referrals: Lenka Singh MD [Primary Care Provider] - 06/18/18 3:30 pm Prescriptions: Lisinopril [Zestril] 5 mg PO DAILY #30 tablet Metoprolol [Lopressor] 25 mg PO BID #60 tablet <Narendra Howard - Last Filed: 06/17/18 19:20> Date of Encounter: 06/16/18 Time of Encounter: 10:00 - Attending Attestation I have personally performed a face to face evaluation on this patient. I have reviewed and agree with the care plan. History and Exam by me shows: CC: Dizziness, near syncope HPI:; Pt reports was out in the sun mowing his lawn for over an hour, when began to feel dizzy, and thought he might pass out. He stopped mowing and went to sit down in the shade with some improvement in symptoms. He tried to stand, became dizzy, sat back down and called squad. He felt immediately better when placed in air conditioned squad unit, symptoms resolved over five minutes, have not reoccurred. HE denies chest pain, pressure, palpitations or shortness of breath with this event. He denies previous episodes of similar symptoms. He notes had some dizziness with changes in postion before PPMK which have since resolved. He denies actual loss of consciousness, passing out or loss of bowel or bladder control. , fol ROS: reviewed PMH: reviewed PE: pt seen and examined, agree with findings as documented. IMP/Plan: 1. Near syncope: secondary to dehydration and heat exposure, provoking episode of atrial tachycardia, which has resolved with rapid cooling and rehydration. He may benefit from increasing beta blockade to better control atrial response, avoiding hard exertion during the hottest parts of the day, particularly if outside temp is greater than 80 degrees. 2. .Stable class 1 angina on current medications 3. Third degree heart block controlled with PPMK, follows in [facility]. REC; pt is low risk for hospital discharge from cardiovascular perspective, will continue to follow in office as outpatient. Assessment and Plan Discussion w patient/family: The assessment and plan as outlined above was discussed with the patient and/or family members who expressed understanding and agreement. All questions were answered. Thank you for involving us in the care of your patient. Please call with any questions. History of Present Illness History of present illness: Mr. Varela is a 58 year old male All Systems Review: The remainder of the systems were reviewed and are negative Results 06/16/18 06:45 06/16/18 06:45
[2018-06-16] MEDS: 0.9 % Sodium Chloride 1,000 ML IVC SCH (12:07)
[2018-06-16 12:20] LABS: Bilirubin,Urine Negative (Negative); Blood,Urine Negative (Negative); Clarity,Urine Clear (Clear); Color,Urine Yellow (Yellow); Glucose,Urine (UA) Normal (Normal); Ketones,Urine Negative (Negative); Leukocyte Esterase,Urine Negative (Negative); Nitrite,Urine Negative (Negative); Protein,Urine Negative (Neg-Trace); Specific Gravity,Urine 1.021 (1.010-1.025); Urobilinogen,Urine Normal (Normal)
--- NOTE | 2018-06-16 17:35 | Internal Med Progress Note ---
Hospitalist Progress Note - Encounter Date of Encounter: 06/16/18 Time of Encounter: 12:00 - Subjective Interval History: reports improvement in generalized weakness and dizziness. No chest pain, shortness of breath, nausea, vomiting or diarrhea. No syncope or palpitations. - Exam Vitals: Temp Pulse Resp BP Pulse Ox 97.8 F 74 16 112/78 97 06/16/18 16:00 06/16/18 16:00 06/16/18 16:00 06/16/18 16:00 06/16/18 16:00 Exam: General: Well-developed morbidly obese male lying comfortably in bed in no acute distress Skin: Warm and supple Chest: Normal thoracic expansion. Normal breath sounds. Clear to auscultation. Heart: Normal S1 & S2; rhythmic. No rubs or murmurs. Abdomen: Non-distended, soft and nontender, obese Extremities: No clubbing, cyanosis or edema. No calf tenderness. Normal distal pulses. Neurological: Awake, alert and oriented to person, place and time. No focal deficits. Psych: Affect appropriate. - Assessment and Plan (1) Near syncope Current Visit: Yes Status: Acute Assessment and Plan: Patient has pacemaker in situ. Per previous notes, Device check in the ER showed 1 minute 45 second episode of atrial tachycardia; also could be related to heat exhaustion. Continue IV hydration and supportive care. Echocardiogram from April 2018 shows preserved EF, RV dilated with normal function, indeterminate diastolic function, mild MR and TR; Cardiology consult appreciated, increased metoprolol to 25 mg twice daily. Follow-up repeat echocardiogram. Physical and occupational therapy evaluation. (2) Obstructive sleep apnea Current Visit: Yes Status: Chronic (3) Diabetes Current Visit: Yes Status: Chronic Assessment and Plan: Blood sugars fairly controlled. Start sliding scale insulin as needed. Diabetic diet. Continue Accu-Chek blood glucose monitoring. (4) HTN (hypertension) Current Visit: Yes Status: Chronic (5) COPD (chronic obstructive pulmonary disease) Current Visit: Yes Status: Chronic (6) CHF (congestive heart failure) Current Visit: Yes Status: Chronic (7) CAD (coronary artery disease) Current Visit: Yes Status: Chronic (8) Depression Current Visit: Yes Status: Chronic - Time Spent with Patient Total time spent is greater than 50% in coordination of care (as documented) at patient's floor/unit and/or counseling patient: Internal Medicine: Result - Labs CBC & Chem 7: 06/16/18 06:45 06/16/18 06:45 Labs: Short CBC 06/16/18 Range/Units 06:45 WBC 5.8 (4.3-11.1) K/mcL Hgb 10.6 L D (12.9-16.9) g/dL Hct 34.1 L (37.5-50.1) % Plt Count 153 (140-400) K/mcL BMP 06/16/18 06:45 Sodium 135 L Potassium 3.9 Chloride 104 Carbon Dioxide 23 BUN 20 Creatinine 0.98 Glucose 162 H Calcium 8.3 L Liver Function 06/16/18 Range/Units 06:45 Total Bilirubin 0.5 (0.3-1.0) mg/dL AST 38 (13-39) Units/L ALT 30 (7-52) Units/L Alkaline Phosphatase 68 (34-104) Units/L Albumin 3.5 (3.5-5.7) g/dL Urine 06/16/18 Range/Units 12:00 Urine Color Yellow (Yellow) Urine Clarity Clear (Clear) Urine pH 6.0 (5.0-8.0) pH Units Ur Specific [place] 1.021 (1.010-1.025) Urine Protein Negative (Neg-Trace) mg/dL Urine Glucose (UA) Normal (Normal) mg/dL - ABG Interpretation ABG results: PT/INR, D-dimer PT 11.6 Seconds (9.4-12.1) 06/15/18 19:00 Consult Discharge Plan - Plan Referrals: Lenka Singh MD [Primary Care Provider] - (3) Diabetes Qualifiers: Diabetes mellitus type: type 2 Diabetes mellitus long winder tender insulin use: without long winder tender use Diabetes mellitus complication status: with unspecified complications Qualified Code(s): E11.8 - Type 2 diabetes mellitus with unspecified complications (4) HTN (hypertension) Qualifiers: Hypertension type: essential hypertension Qualified Code(s): I10 - Essential (primary) hypertension (5) COPD (chronic obstructive pulmonary disease) Qualifiers: COPD type: unspecified COPD Qualified Code(s): J44.9 - Chronic obstructive pulmonary disease, unspecified (6) CHF (congestive heart failure) Qualifiers: Heart failure type: diastolic Heart failure chronicity: chronic Qualified Code(s): I50.32 - Chronic diastolic (congestive) heart failure (7) CAD (coronary artery disease) Qualifiers: Coronary Disease-Associated Artery/Lesion type: [place] artery [place] vs. transplanted heart: [place] heart Associated angina: without angina Qualified Code(s): I25.10 - Atherosclerotic heart disease of [place] coronary artery without angina pectoris (8) Depression Qualifiers: Depression Type: unspecified Qualified Code(s): F32.9 - Major depressive disorder, single episode, unspecified
[2018-06-16] MEDS ORDERED: Dextrose Gel 15 GM/37.5 ML TUBE PO PRN ×2 (18:06)
[2018-06-16] MEDS ORDERED: *HR* Dextrose 50 % in Water (Syg) 50 ML SYRINGE IVP PRN (18:06)
[2018-06-16] MEDS ORDERED: D5% in Water 1,000 ML IVC PRN (18:06)
[2018-06-16] MEDS ORDERED: Perflutren Lipid Microsphere 1.3 ML in 0.9 % Sodium Chloride 8.7 ML IVP ONE (20:09)
[2018-06-16] MEDS ORDERED: Insulin LISPRO 300 UNITS/3 ML VIAL SQ SCH (21:00)
[2018-06-16] MEDS ORDERED: Mirtazapine 15 MG TABLET PO SCH (21:00)
[2018-06-17] MEDS ORDERED: Insulin LISPRO 300 UNITS/3 ML VIAL SQ SCH (07:30)
[2018-06-17] MEDS: Cholecalciferol (D-3) 1,000 UNIT TABLET PO SCH (10:04)
[2018-06-17] MEDS: Loratadine 10 MG TABLET PO SCH (10:04)
--- NOTE | 2018-06-17 10:33 | Event Note ---
Date of Encounter: 06/17/18 Time of Encounter: 10:29 - Cardiology Event Note TTE resulted--EF remains preserved. No significant events on telemetry. Continue increased BB. Cardiology signing off. Reconsult PRN. Will coordinate outpt cardiology follow- up in 3-4 weeks.
[2018-06-17] MEDS: Budesonide/Formoterol 160/4.5 1 PUFF INH IH SCH (10:47)
[2018-06-17 11:45] VITALS: BP 119/71
--- NOTE | 2018-06-17 12:45 | Discharge Summary ---
- NOTES TO OUTPATIENT PROVIDER Notes to Outpatient Provider: Near-syncope, due to heat exhaustion and atrial tachycardia, per device check; increased beta mir per Cardiology; f/up as outpatient; Date of Encounter: 06/17/18 Time of Encounter: 12:43 - Discharge Diagnosis (1) Near syncope Priority: Primary Status: Acute (2) Obstructive sleep apnea Priority: Secondary Status: Chronic (3) Diabetes Priority: Secondary Status: Chronic Qualifiers: Diabetes mellitus type: type 2 Diabetes mellitus [facility] insulin use: without [facility] use Diabetes mellitus complication status: with unspecified complications Qualified Code(s): E11.8 - Type 2 diabetes mellitus with unspecified complications (4) HTN (hypertension) Priority: Secondary Status: Chronic Qualifiers: Hypertension type: essential hypertension Qualified Code(s): I10 - Essential (primary) hypertension (5) COPD (chronic obstructive pulmonary disease) Priority: Secondary Status: Chronic Qualifiers: COPD type: unspecified COPD Qualified Code(s): J44.9 - Chronic obstructive pulmonary disease, unspecified (6) CHF (congestive heart failure) Priority: Secondary Status: Chronic Qualifiers: Heart failure type: diastolic Heart failure chronicity: chronic Qualified Code(s): I50.32 - Chronic diastolic (congestive) heart failure (7) CAD (coronary artery disease) Priority: Secondary Status: Chronic Qualifiers: Coronary Disease-Associated Artery/Lesion type: [place] artery [place] vs. transplanted heart: [place] heart Associated angina: without angina Qualified Code(s): I25.10 - Atherosclerotic heart disease of [place] coronary artery without angina pectoris (8) Depression Priority: Secondary Status: Chronic Qualifiers: Depression Type: unspecified Qualified Code(s): F32.9 - Major depressive disorder, single episode, unspecified Hospital course: Mr. Varela is a 58 year old male with the above medical problems, who was admitted with dizziness and near syncope, probably due to atrial tachycardia. Patient has a pacemaker in place and device check in the emergency room revealed an episode of atrial tachycardia that correlated with symptoms. He was started on telemetry monitoring along with IV hydration. Cardiology was consulted, recommended increasing his beta mir along with decreasing dose of PUJA inhibitor to avoid hypotension. Transthoracic echocardiogram was completed with preserved EF and no new changes. Physical therapy evaluation was done, no therapy needs. Patient is currently medically stable for discharge with outpatient cardiology follow-up. Discharge discussed with: patient, nurse - Time Spent with Patient Total time spent providing and/or coordinating discharge services: Greater than 30 minutes (40 min) - Discharge Medications Prescriptions: Lisinopril [Zestril] 5 mg PO DAILY #30 tablet Metoprolol [Lopressor] 25 mg PO BID #60 tablet Home Medications: Albuterol Sulfate [Ventolin Hfa] 2 puff IH Q4H PRN 08/05/15 [History] Budesonide/Formoterol 160/4.5 [Symbicort] 2 puff IH DAILY 08/05/15 [History] Cholecalciferol (Vitamin D3) [Vitamin D3] 2,000 unit PO DAILY 08/05/15 [History] Clopidogrel [Plavix] 75 mg PO QAM 08/05/15 [History] Loratadine [Claritin] 10 mg PO QAM 08/05/15 [History] EPINEPHrine [Epipen] 0.3 mg IM ONCE PRN 10/01/16 [History] Omeprazole [PriLOSEC] 40 mg PO DAILY 10/01/16 [History] Lovastatin 80 mg PO DAILY 07/10/17 [History] Mirtazapine [Remeron] 15 mg PO HS 07/10/17 [History] Sertraline [Zoloft] 100 mg PO DAILY 07/10/17 [History] metFORMIN [Glucophage] 500 mg PO DAILY #30 tablet 07/13/17 [Rx] Lisinopril [Zestril] 5 mg PO DAILY #30 tablet 06/17/18 [Rx] Metoprolol [Lopressor] 25 mg PO BID #60 tablet 06/17/18 [Rx] Allergies/Adverse Reactions: 3 Allergy/AdvReac Type Severity Reaction Status Date / Time aspirin Allergy Anaphylaxis Verified 05/09/18 23:08 Bee Pollen Allergy Anaphylaxis Verified 05/09/18 23:08 naproxen [From Aleve] Allergy Anaphylaxis Verified 05/09/18 23:08 spider venom Allergy Swelling Verified 05/09/18 23:08 of Lip/Tongue/Throat Date of admission: 06/15/18 20:50 Primary care physician: Lenka Singh Consults: 06/16/18 17:35 Consult to Occupational Therapy [CONS] Routine Comment: Evaluate, develop and implement POC Reason for Consult: Generalized weakness and dizziness Does patient have active BEDREST order?: No Is patient medically & hemodynamically stable?: Yes Patient assessed for mobility or mobilized this visit?: Yes Consult to Physical Therapy [CONS] Routine Comment: Evaluate, develop and implement POC Reason for Consult: Generalized weakness and dizziness Does patient have active BEDREST order?: No Is patient medically & hemodynamically stable?: Yes Patient assessed for mobility or mobilized this visit?: Yes Discharging clinician: Flory Mcgregor Anticipated date of discharge: 06/17/18 - Constitutional Vitals: Temp Pulse Resp BP Pulse Ox 98.1 F 65 17 119/71 93 06/17/18 11:35 06/17/18 11:35 06/17/18 11:35 06/17/18 11:35 06/17/18 11:35 General appearance: Present: A&O X 3, answers questions appropriately Exam: . - Cardiovascular Cardiovascular exam: Present: RRR, +S1, +S2. Absent: diastolic murmur, gallop, rubs, systolic murmur - Patient Status Disposition: Home, Self-Care Condition: Good Functional capacity at discharge: independent ambulation Overall status at discharge: patient is progressing back to baseline - Discharge Instructions Instructions: Metoprolol (By mouth), Lisinopril (By mouth), Chronic Obstructive Pulmonary Disease (DC), Chronic Hypertension (DC) Follow Up With: Lenka Singh MD [Primary Care Provider] - 06/18/18 3:30 pm Additional Instructions: F/up with PCP in 1-2 weeks F/up with Cardiology in 3-4 weeks - Diet and Activity Activity: resume usual activities as tolerated Diet: diabetic diet, low fat, low cholesterol, low salt diet
--- NOTE | 2018-06-20 10:56 | Electrocardiograph Report ---
[address] [address] Test Date: 2018-06-15 Pat Name: Chase Varela Department: EXAM7 Room: [facility] Gender: M [employer] Operator: : [id number] Requested By: Marce Taylor Order Number: [id number] Reading MD: Mariela Higgins Measurements Intervals [place] Rate: 90 P: 65 AL: 180 QRS: -82 QRSD: 160 T: 78 QT: 386 QTc: 473 Interpretive Statements Atrial-sensed ventricular-paced complexes Electronically Signed On 06-20-2018 10:55:24 EDT by Mariela Higgins
== END 2018-06-17 14:31 | disposition home or self-care (01) ==
LOC: EMEROOARM 18:10 → 2NENU 18:10 → SUATTDRO 20:50 → 2NENU 21:11
PROVIDERS: ADMIT Internal Medicine; ATTEND Internal Medicine

== ENCOUNTER 2018-06-28 10:40 | Observation (INO) ==
--- NOTE | 2018-06-28 10:42 | Emergency Department Note ---
Disposition Clinical Impression: Chest pain Qualifiers: Chest pain type: unspecified Qualified Code(s): R07.9 - Chest pain, unspecified Disposition: Admitted As Inpatient Chest Pain HPI - General Chief Complaint: ED Chest Pain Stated Complaint: CP - Related Data Home Medications Medication Instructions Recorded Confirmed Albuterol Sulfate [Ventolin Hfa] 2 puff IH Q4H PRN 08/05/15 06/28/18 Cholecalciferol (Vitamin D3) 2,000 unit PO DAILY 08/05/15 06/28/18 [Vitamin D3] EPINEPHrine [Epipen] 0.3 mg IM ONCE PRN 10/01/16 06/28/18 Omeprazole [PriLOSEC] 40 mg PO DAILY 10/01/16 06/28/18 Lovastatin 80 mg PO DAILY 07/10/17 06/28/18 Mirtazapine [Remeron] 15 mg PO HS PRN 07/10/17 06/28/18 Sertraline [Zoloft] 100 mg PO DAILY 07/10/17 06/28/18 Budesonide/Formoterol 160/4.5 2 puff IH DAILY 06/28/18 06/28/18 [Symbicort 160/4.5] Clopidogrel [Plavix] 75 mg PO DAILY 06/28/18 06/28/18 Linagliptin [Tradjenta] 5 mg PO DAILY 06/28/18 06/28/18 Loratadine [Claritin] 10 mg PO DAILY 06/28/18 06/28/18 metFORMIN [Glucophage] 500 mg PO BID 06/28/18 06/28/18 Previous Rx's Medication Instructions Recorded Lisinopril [Zestril] 5 mg PO DAILY #30 tablet 06/17/18 Metoprolol [Lopressor] 25 mg PO BID #60 tablet 06/17/18 Allergies Allergy/AdvReac Type Severity Reaction Status Date / Time aspirin Allergy Anaphylaxis Verified 06/28/18 12:45 Bee Pollen Allergy Anaphylaxis Verified 06/28/18 12:45 naproxen [From Aleve] Allergy Anaphylaxis Verified 06/28/18 12:45 spider venom Allergy Swelling Verified 06/28/18 12:45 of Lip/Tongue/Throat Chest Pain PMH - Past Medical History Medical history: Reports: arthritis, asthma, CHF, COPD, coronary artery disease , DVT, diabetes, GERD, hyperlipidemia, hypertension, other Surgical history: Reports: appendectomy, cholecystectomy, pacemaker/AICD, tonsilectomy Psychiatric history: Reports: depression - Social History Smoking Status: Never smoker Alcohol use: Reports: none Drug use: Reports: none Course Vital Signs Temperature 98.3 F 06/28/18 10:43 Pulse Rate 72 06/28/18 10:43 Respiratory Rate 18 06/28/18 10:43 Blood Pressure 129/64 06/28/18 10:43 O2 Sat by Pulse Oximetry 98 06/28/18 10:43 Temperature 98.0 F 06/28/18 18:49 Pulse Rate 86 06/28/18 18:49 Respiratory Rate 16 06/28/18 18:49 Blood Pressure 111/63 06/28/18 18:49 O2 Sat by Pulse Oximetry 97 06/28/18 18:49 Oxygen Delivery Oxygen Delivery Room Air Chest Pain - Lab Data Result diagrams: 06/28/18 11:22 06/28/18 11:22 Lab Results 06/28/18 06/28/18 06/28/18 Range/Units 11:22 11:22 11:22 WBC 6.4 (4.3-11.1) K/mcL RBC 4.59 (4.19-5.50) M/mcL Hgb 11.3 L (12.9-16.9) g/dL Hct 36.2 L (37.5-50.1) % MCV 78.9 L (83.0-100.0) fL MCH 24.6 L (28.0-33.3) pg MCHC 31.2 L (31.6-35.5) g/dL RDW 15.5 H (11.5-14.5) % Plt Count 182 (140-400) K/mcL MPV 11.9 (9.4-12.4) fL Immature Gran % 0.3 (0-4) % Seg Neutrophils % 61.7 % Lymphocytes % 23.4 % Monocytes % 10.2 % Eosinophils % 3.6 % Basophils % 0.8 % Neutrophils # 3.9 (1.6-8.9) K/mcL Lymphocytes # 1.5 (0.6-4.6) K/mcL Monocytes # 0.7 (0.0-1.3) K/mcL Eosinophils # 0.2 (0.0-0.6) K/mcL Basophils # 0.1 (0.0-0.2) K/mcL PT 11.0 (9.4-12.1) Seconds INR 1.0 APTT 32.7 (26.0-36.0) Seconds Sodium (136-145) mEq/L Potassium (3.5-5.1) mEq/L Chloride (98-107) mEq/L Carbon Dioxide (23-29) mEq/L BUN (6-20) mg/dL Creatinine (0.70-1.30) mg/dL Est GFR ( Amer) (> 60) Est GFR (Non-Af Amer) (> 60) BUN/Creatinine Ratio (6-26) Glucose (70-105) mg/dL Calculated Osmolality (280-300) Calcium (8.6-10.3) mg/dL Troponin I (< 0.04) ng/mL B-Natriuretic Peptide 58 (Less than 100) pg/mL 06/28/18 Range/Units 11:22 WBC (4.3-11.1) K/mcL RBC (4.19-5.50) M/mcL Hgb (12.9-16.9) g/dL Hct (37.5-50.1) % MCV (83.0-100.0) fL MCH (28.0-33.3) pg MCHC (31.6-35.5) g/dL RDW (11.5-14.5) % Plt Count (140-400) K/mcL MPV (9.4-12.4) fL Immature Gran % (0-4) % Seg Neutrophils % % Lymphocytes % % Monocytes % % Eosinophils % % Basophils % % Neutrophils # (1.6-8.9) K/mcL Lymphocytes # (0.6-4.6) K/mcL Monocytes # (0.0-1.3) K/mcL Eosinophils # (0.0-0.6) K/mcL Basophils # (0.0-0.2) K/mcL PT (9.4-12.1) Seconds INR APTT (26.0-36.0) Seconds Sodium 132 L (136-145) mEq/L Potassium 3.8 (3.5-5.1) mEq/L Chloride 100 (98-107) mEq/L Carbon Dioxide 23 (23-29) mEq/L BUN 18 (6-20) mg/dL Creatinine 1.05 (0.70-1.30) mg/dL Est GFR ( Amer) > 60 (> 60) Est GFR (Non-Af Amer) > 60 (> 60) BUN/Creatinine Ratio 17 (6-26) Glucose 154 H (70-105) mg/dL Calculated Osmolality 279 L (280-300) Calcium 8.8 (8.6-10.3) mg/dL Troponin I < 0.03 (< 0.04) ng/mL B-Natriuretic Peptide (Less than 100) pg/mL Attestation Statement - Attestation Attestation: Patient was seen with the resident physician. Independent history and physical exam was taken. I discussed the case with the resident and agree with the findings and plan as documented in the resident's note. Resident physician Dr. White. 58-year-old male with testicle history of pacemaker, hypertension, diabetes presenting for evaluation of chest pain. Patient states that he was at [employer] when he described left-sided tightness. Patient states that he has a history of PE but has not been on any anticoagulation. States that he was told to take aspirin. His initial workup was negative so a CTA of his chest was performed. No evidence of PE. Patient did not improve with initial nitroglycerin. Aspirin given. Patient brought in for further evaluation of chest pain. No acute distress Regular rate and rhythm Clear to auscultation bilaterally No significant peripheral edema
[2018-06-28] MEDS ORDERED: Nitroglycerin 0.4 MG TAB.SUBL SL PRN (10:53)
--- NOTE | 2018-06-28 11:01 | Emergency Department Note ---
Disposition Clinical Impression: Chest pain Qualifiers: Chest pain type: unspecified Qualified Code(s): R07.9 - Chest pain, unspecified Disposition: Admitted As Inpatient Forms: ED Satisfaction Letter General Adult HPI - General Chief complaint: ED Chest Pain Stated complaint: CP Time Seen by Provider: 06/28/18 10:41 Source: patient, EMS Mode of arrival: EMS Limitations: no limitations Nursing Notes Reviewed: Yes Vital Signs Reviewed: Yes - History of Present Illness HPI Narrative: Patient is a 58-year-old male with past medical history including pacemaker, hypertension, diabetes mellitus, chronic kidney disease, who presents with a chief complaint of left sided chest pain. Patient states half an hour prior to arrival he was sitting in a class at [employer] when he slowly developed left-sided chest pain described as tightness. It is nonradiating. This was associated with some shortness of breath. He states it progressively worsened and he has never had this pain before. EMS was called. Patient did not receive any medications and route as the patient is allergic to aspirin. At present he states the pain is a 4/10. He denies nausea, abdominal pain, fevers, lower extremity swelling, lightheadedness. Pain Scale: 4 - Related Data Home Medications Medication Instructions Recorded Confirmed Albuterol Sulfate [Ventolin Hfa] 2 puff IH Q4H PRN 08/05/15 06/16/18 Cholecalciferol (Vitamin D3) 2,000 unit PO DAILY 08/05/15 06/16/18 [Vitamin D3] EPINEPHrine [Epipen] 0.3 mg IM ONCE PRN 10/01/16 06/16/18 Omeprazole [PriLOSEC] 40 mg PO DAILY 10/01/16 06/16/18 Lovastatin 80 mg PO DAILY 07/10/17 06/16/18 Mirtazapine [Remeron] 15 mg PO HS 07/10/17 06/16/18 Sertraline [Zoloft] 100 mg PO DAILY 07/10/17 06/16/18 Budesonide/Formoterol 160/4.5 2 puff IH DAILY 06/28/18 06/28/18 [Symbicort 160/4.5] Clopidogrel [Plavix] 75 mg PO DAILY 06/28/18 06/28/18 Linagliptin [Tradjenta] 5 mg PO DAILY 06/28/18 06/28/18 Loratadine [Claritin] 10 mg PO DAILY 06/28/18 06/28/18 metFORMIN [Glucophage] 500 mg PO BID 06/28/18 06/28/18 Previous Rx's Medication Instructions Recorded Lisinopril [Zestril] 5 mg PO DAILY #30 tablet 06/17/18 Metoprolol [Lopressor] 25 mg PO BID #60 tablet 06/17/18 Allergies Allergy/AdvReac Type Severity Reaction Status Date / Time aspirin Allergy Anaphylaxis Verified 06/28/18 12:45 Bee Pollen Allergy Anaphylaxis Verified 06/28/18 12:45 naproxen [From Aleve] Allergy Anaphylaxis Verified 06/28/18 12:45 spider venom Allergy Swelling Verified 06/28/18 12:45 of Lip/Tongue/Throat All systems ED: reviewed and negative except as stated. Review of Systems: As Per HPI Constitutional: Denies: fever, chills Eyes: Denies: vision change ENT ED: Denies: throat pain, congestion Cardiovascular: Reports: chest pain, other (no diaphoresis). Denies: palpitations, orthopnea Respiratory: Reports: dyspnea. Denies: cough, wheezes Gastrointestinal: Denies: abdominal pain, nausea Genitourinary: Denies: urgency, dysuria Musculoskeletal: Denies: back pain Integumentary: Denies: rash Neurological: Denies: headache, weakness Allergic/Immunologic: Denies: itchy eyes Past Medical History - Past Medical History Attestation: Yes The following information was validated with the patient. Source: patient Medical history: Reports: arthritis, asthma, CHF, COPD, coronary artery disease , DVT, diabetes, GERD, hyperlipidemia, hypertension, other Surgical history: Reports: appendectomy, cholecystectomy, pacemaker/AICD, tonsilectomy Psychiatric history: Reports: depression - Social History Smoking Status: Never smoker Smokeless Tobacco Status: No Alcohol use: Reports: none Drug use: Reports: none Physical Exam - General Limitations: no limitations General appearance: alert, in no apparent distress - Head Head exam: atraumatic, normocephalic - Eye Eye exam: Present: normal appearance, EOMI - ENT ENT exam: normal exam, mucous membranes moist - Neck Neck exam: Present: normal inspection, trachea midline - Respiratory Respiratory exam: Present: normal lung sounds bilaterally. Absent: respiratory distress, wheezes - Cardiovascular Cardiovascular exam: Present: regular rate, other (paced rhythm). Absent: systolic murmur, diastolic murmur - Abdominal Exam Abdominal exam: Present: soft, Non-Tender. Absent: distention - Extremities Exam Extremities exam: Absent: pedal edema, calf tenderness - Neurological Exam Neurological exam: Present: alert, oriented X3, CN II-XII intact - Psychiatric Psychiatric exam: Present: normal affect, normal mood - Skin Skin exam: Present: warm, dry. Absent: diaphoresis, pallor Course Vital Signs Temperature 98.3 F 06/28/18 10:43 Pulse Rate 72 06/28/18 10:43 Respiratory Rate 18 06/28/18 10:43 Blood Pressure 129/64 06/28/18 10:43 O2 Sat by Pulse Oximetry 98 06/28/18 10:43 Temperature 98.3 F 06/28/18 10:43 Pulse Rate 72 06/28/18 10:43 Respiratory Rate 18 06/28/18 10:43 Blood Pressure 129/64 06/28/18 10:43 O2 Sat by Pulse Oximetry 98 06/28/18 10:43 Oxygen Delivery Oxygen Delivery Room Air Medical Decision Making - [facility] Narrative Medical decision making narrative: Patient has a heart score of 3. He has an allergy to aspirin so we will give Plavix. We will also give sublingual nitroglycerin and monitor his blood pressures and pain. EKG shows paced rhythm. He does not meet Scarbosa's criteria. No evidence of acute ischemia. EKG was compared to prior and it was unchanged. Check chest x-ray, CBC, BMP, troponin, BNP, PT/INR. Patient states he is on Plavix as he may have had a prior pulmonary embolus in the past. He is not sure and has not been on other anticoagulation. If workup is negative, will obtain CT angio of his chest. 11:23 Reevaluated the patient. He states his chest pain is on changed after the first nitroglycerin. Blood pressure is 102/54. We will hold additional nitroglycerin. 12:00 Upon reevaluation, blood pressure is improved with systolic 123. He states his chest pain is improving. Still awaiting lab results. 12:20 Labs reviewed. Troponin is negative. We will check CT angio of his chest at this time to further evaluate for pulmonary embolism as a cause of his chest pain and shortness of breath. Chest x-ray with mild cardiomegaly and vascular congestion. 13:15 BNP within normal limits, 58. Patient states he is feeling better at this time. He denies chest pain. Still awaiting the CT of his chest. 14:20 CTA without evidence of PE. Hospitalist consulted for the patient to be admitted for further cardiac workup. 14:42 Discussed with hospitalist. Patient accepted for further evaluation. - Medical Records Medical records reviewed: Yes I reviewed the patient's medical records. - Lab Data Lab results reviewed: Yes I reviewed the patient's lab results. - Radiology Data Radiology results reviewed: Yes I reviewed the patient's radiology results. Chest X-Ray 06/28/18 10:47 IMPRESSION: Cardiomegaly with mild vascular congestion. Some of this may relate to the poor inspiration. RECOMMENDATION: Follow-up PA and lateral chest films with full inspiration when feasible. D/ / Brian Martinez MD / Brian Martinez MD Interpreting Provider: Brian Martinez MD Chest X-Ray 06/28/18 10:47 IMPRESSION: Cardiomegaly with mild vascular congestion. Some of this may relate to the poor inspiration. RECOMMENDATION: Follow-up PA and lateral chest films with full inspiration when feasible. D/ / Brian Martinez MD / Brian Martinez MD Interpreting Provider: Brian Martinez MD Chest CTA 06/28/18 12:21 IMPRESSION: No evidence of pulmonary embolism. No acute abnormality. D/ / Brian Martinez MD / Brian Martinez MD Interpreting Provider: Brian Martinez MD - EKG Data EKG #1 EKG attestation: Yes I reviewed and interpreted this EKG. EKG results narrative: EKG with ventricular paced rhythm with heart rate 73. AL interval 62. QT 420. QTc 463. No acute ischemia. Patient has no concordance are discordance. Compared to prior EKG on 06/15/2018 which is unchanged. Heart Score - Score History: Slightly Suspicious EKG: Normal Age: 45-65 Risk Factors: Equal/Greater than 3 risk factor or history of atherosclerotic disease Troponin: Less than normal limit HEART Score Total: 3
[2018-06-28 12:00] LABS: Basophils # 0.1 K/mcL (0.0-0.2); Basophils % 0.8 %; Eosinophils # 0.2 K/mcL (0.0-0.6); Eosinophils % 3.6 %; Hematocrit 36.2 % (37.5-50.1); Hemoglobin 11.3 g/dL (12.9-16.9); Immature Granulocytes % 0.3 % (0-4); Lymphocytes # 1.5 K/mcL (0.6-4.6); Lymphocytes % 23.4 %; Mean Corpuscular HGB Conc 31.2 g/dL (31.6-35.5); Mean Corpuscular Hemoglobin 24.6 pg (28.0-33.3); Mean Corpuscular Volume 78.9 fL (83.0-100.0); Mean Platelet Volume 11.9 fL (9.4-12.4); Monocytes # 0.7 K/mcL (0.0-1.3); Monocytes % 10.2 %; Neutrophils # 3.9 K/mcL (1.6-8.9); Platelet Count 182 K/mcL (140-400); Red Blood Count 4.59 M/mcL (4.19-5.50); Red Cell Distribution Width 15.5 % (11.5-14.5); Segmented Neutrophils % 61.7 %
[2018-06-28 12:09] LABS: Activated Partial Thrombo Time 32.7 Seconds (26.0-36.0)
[2018-06-28 12:16] LABS: BUN/Creatinine Ratio 17 (6-26); Blood Urea Nitrogen 18 mg/dL (6-20); Calcium 8.8 mg/dL (8.6-10.3); Carbon Dioxide 23 mEq/L (23-29); Chloride 100 mEq/L (98-107); Glucose 154 mg/dL (70-105); Osmolality,Calculated 279 (280-300); Potassium 3.8 mEq/L (3.5-5.1); Sodium 132 mEq/L (136-145); eGFR For Non-African Americans > 60 (> 60)
[2018-06-28 12:17] LABS: Troponin I < 0.03 ng/mL (< 0.04)
[2018-06-28] MEDS ORDERED: Isovue-370 500 ML INFUS..BTL IV ONE (12:21)
[2018-06-28] MEDS ORDERED: Acetaminophen 325 MG TABLET PO PRN (16:51)
[2018-06-28] MEDS ORDERED: *HR* HYDROcodone/Acet 5/325 mg TABLET PO PRN (16:51)
[2018-06-28] MEDS ORDERED: Naloxone 0.4 MG/ML INJ IVP PRN (16:51)
[2018-06-28] MEDS ORDERED: Mirtazapine 15 MG TABLET PO PRN (16:53)
--- NOTE | 2018-06-28 17:31 | Internal Med History&Physical ---
Date of Encounter: 06/28/18 Time of Encounter: 16:59 Internal Medicine - H&P: HPI Chief complaint: CP Admitted From: Emergency Dept Plans for Post Hospital Care: Home History of present illness: Mr. Varela is a 58 year old male past medical history of DOROTHY with CPAP GERD C KD daily obesity status post PPM (complete heart block) CHF? Patient presented to the emergency department after experiencing midsternal chest pain occurring at rest. According to the patient he did not feel well overnight and this morning he continued to feel poorly. He was sitting in [place] when he slid developed left-sided chest pain she described as tightness was nonradiating he did have associated symptoms of shortness of breath. He rated the pain 4 out of 10 pain is worse on inspiration . In the ER he was given Plavix since he is allergic to aspirin CTA without any evidence of PE chest x-ray with some cardiomegaly and mild vascular congestion EKG shows AV paced rhythm troponin was negative rest of lab work is unremarkable. He was recently admitted to this facility approximately 10 days ago at that time he presented with syncope he was seen by cardiology and beta mir was increased placed on lisinopril 5 mg daily. Patient states he has felt tired and weak ever since increasing his beta mir he has also been experiencing shortness of breath. He denies any orthopnea or lower extremity swelling or recent weight gain. He has not had a cardiac catheterization or stress test in the past. I did review this case with Dr. Higgins cardiology-who suspects possible pacemaker syndrome. Cardiology will see the patient upon consult patient be admitted for observation continuous cardiac monitoring Past Med Surg Social Fam HX - Past Medical History Medical history: arthritis, asthma, CHF, COPD, coronary artery disease, DVT, diabetes, GERD, hyperlipidemia, hypertension, other Additional medical history: sleep apnea BIPAP at home. Psychiatric history: depression - Past Surgical History Surgical History: appendectomy, cholecystectomy, pacemaker/AICD, tonsilectomy Additional surgical history: lhc - Social History Smoking Status: Never smoker Smokeless Tobacco Status: No Alcohol use: none Drug use: none - Family History Mother Adopted: Yes Father Adopted: Yes Internal Medicine - H&P: Meds Albuterol Sulfate [Ventolin Hfa] 2 puff IH Q4H PRN 08/05/15 [History] Cholecalciferol (Vitamin D3) [Vitamin D3] 2,000 unit PO DAILY 08/05/15 [History] EPINEPHrine [Epipen] 0.3 mg IM ONCE PRN 10/01/16 [History] Omeprazole [PriLOSEC] 40 mg PO DAILY 10/01/16 [History] Lovastatin 80 mg PO DAILY 07/10/17 [History] Mirtazapine [Remeron] 15 mg PO HS PRN 07/10/17 [History] Sertraline [Zoloft] 100 mg PO DAILY 07/10/17 [History] Lisinopril [Zestril] 5 mg PO DAILY #30 tablet 06/17/18 [Rx] Metoprolol [Lopressor] 25 mg PO BID #60 tablet 06/17/18 [Rx] Budesonide/Formoterol 160/4.5 [Symbicort 160/4.5] 2 puff IH DAILY 06/28/18 [ History] Clopidogrel [Plavix] 75 mg PO DAILY 06/28/18 [History] Linagliptin [Tradjenta] 5 mg PO DAILY 06/28/18 [History] Loratadine [Claritin] 10 mg PO DAILY 06/28/18 [History] metFORMIN [Glucophage] 500 mg PO BID 06/28/18 [History] 3 Allergy/AdvReac Type Severity Reaction Status Date / Time aspirin Allergy Anaphylaxis Verified 06/28/18 12:45 Bee Pollen Allergy Anaphylaxis Verified 06/28/18 12:45 naproxen [From Aleve] Allergy Anaphylaxis Verified 06/28/18 12:45 spider venom Allergy Swelling Verified 06/28/18 12:45 of Lip/Tongue/Throat All Systems PM: A 10-system review of systems was performed and is negative for pertinent findings except as documented above in the HPI. - Constitutional Constitutional: fatigue, no chills, no fever(s), no night sweats - EENT Eyes: no change in vision, no discharge, no pain, no photophobia Nose, mouth and throat: no dysphagia, no nasal discharge, no neck pain, no sore throat - Cardiovascular Cardiovascular ROS IM: chest pain, dyspnea, syncope, no diaphoresis, no lightheadedness, no palpitations - Respiratory Respiratory: cough, pain on inspiration, no dyspnea, no wheezing, no excessive phlegm production - Gastrointestinal Gastrointestinal: no abdominal pain, no diarrhea, no hematemesis, no hematochezia, no melena, no nausea, no vomiting - Musculoskeletal Musculoskeletal ROS IM: no numbness, no tingling - Integumentary Integumentary IM: no rash, no unusual bruising - Neurological Neurological ROS: no confusion, no convulsions, no focal weakness, no numbness, no tingling, no tremor(s) - Hematologic/Lymphatic Hematologic/Lymphatic: no easy bruising - Constitutional Vitals: Temp Pulse Resp BP Pulse Ox 98.3 F 69 16 113/66 100 06/28/18 10:43 06/28/18 14:06 06/28/18 15:35 06/28/18 15:35 06/28/18 14:06 General appearance: Present: A&O X 3, morbidly obese Exam: see above - Head Head exam: Present: atraumatic, normocephalic - Eye Eye exam: Present: PERRL, conjuntiva pink, sclera anicteric Pupils: Present: PERRL - Neck Neck exam general surgery: Present: supple, trachea midline. Absent: lymphadenopathy - Respiratory Respiratory exam: Present: CTAB. Absent: accessory muscle use, rales, rhonchi, wheezes - Cardiovascular Cardiovascular exam: Present: RRR, +S1, +S2. Absent: diastolic murmur, gallop, rubs, systolic murmur - GI/Abdominal GI/Abdominal exam: Present: normal bowel sounds, soft, no peritoneal signs. Absent: distended, tenderness - Extremities Exam Extremities exam: Present: warm, radial pulses palpable and symmetrical. Absent : calf tenderness, cyanotic, pedal edema - Neurological Exam Neurological exam: Present: CN II-XII intact, oriented X3, no focal deficits. Absent: pronater drift, facial droop, speech deficit - Skin Skin exam: Present: dry, intact Internal Med - H&P Results - Labs CBC & Chem 7: 06/28/18 11:22 06/28/18 11:22 - EKG Data Prior EKG available for review: yes When compared to previous EKG: there is no significant change EKG comments: 06/28/18 17:33 AV paced - Diagnostic Studies Other Images Additional comments: Chest X-Ray 06/28/18 10:47 IMPRESSION: Cardiomegaly with mild vascular congestion. Some of this may relate to the poor inspiration. RECOMMENDATION: Follow-up PA and lateral chest films with full inspiration when feasible. D/ / Brian Martinez MD / Brian Martinez MD Interpreting Provider: Brian Martinez MD Chest CTA 06/28/18 12:21 IMPRESSION: No evidence of pulmonary embolism. No acute abnormality. D/ / Brian Martinez MD / Brian Martinez MD Interpreting Provider: Brian Martinez MD - Assessment and plan (1) Chest pain Current Visit: Yes Status: Acute Assessment and plan: 1 patient presented with sudden onset of midsternal chest tightness occurring at rest. He does have a cardiac history had pacemaker placement after complete heart block in November of this year.-Was recently admitted for near syncope at that time device was checked which demonstrated atrial tachycardia. Cardiology has been consulted-spoke with Dr. Higgins, who suspects possible pacemaker syndrome We will continue to trend troponins Tenuous cardiac monitoring Oxygen as needed Cardiac echo dated 06/17/2018 Paced rhythm. LVEF 55%. Mild apical left ventricular systolic dysfunction. RV not well visualized Qualifiers: Chest pain type: unspecified Qualified Code(s): R07.9 - Chest pain, unspecified (2) DVT prophylaxis Current Visit: No Status: Acute Assessment and plan: Heparin subcutaneous (3) CKD stage 3 secondary to diabetes Current Visit: No Status: Chronic Assessment and plan: History of CK D currently creatinine is stable we will continue to monitor Avoid nephrotoxins (4) COPD (chronic obstructive pulmonary disease) Current Visit: No Status: Chronic Assessment and plan: History of COPD Will continue home Symbicort Oxygen as needed Qualifiers: COPD type: unspecified COPD Qualified Code(s): J44.9 - Chronic obstructive pulmonary disease, unspecified (5) Diabetes Current Visit: No Status: Chronic Assessment and plan: We will hold oral medications for now Accu-Cheks before meals at bedtime with sliding scale insulin Diabetic diet Qualifiers: Diabetes mellitus type: type 2 Diabetes mellitus group home insulin use: without group home use Diabetes mellitus complication status: with unspecified complications Qualified Code(s): E11.8 - Type 2 diabetes mellitus with unspecified complications (6) Obstructive sleep apnea Current Visit: No Status: Chronic Assessment and plan: We will continue with BiPAP (7) Pacemaker Current Visit: No Status: Chronic Assessment and plan: 1 continuous cardiac monitoring cardiology has been consulted to interrogate pacemaker - Time Spent With Patient Total time spent is greater than 50% in coordination of care (as documented) at patient's floor/unit and/or counseling patient:
[2018-06-28] MEDS ORDERED: *HR* Dextrose 50 % in Water (Syg) 50 ML SYRINGE IVP PRN (17:48)
[2018-06-28] MEDS ORDERED: Dextrose Gel 15 GM/37.5 ML TUBE PO PRN ×2 (17:48)
[2018-06-28] MEDS ORDERED: D5% in Water 1,000 ML IVC PRN (17:48)
[2018-06-28] MEDS: *HR* Heparin 5,000 UNIT/ML VIAL SQ SCH (18:21)
[2018-06-28] MEDS: Insulin LISPRO 300 UNITS/3 ML VIAL SQ SCH (21:32)
[2018-06-29 05:11] LABS: Basophils % 0.6 %; Eosinophils # 0.2 K/mcL (0.0-0.6); Eosinophils % 3.7 %; Hematocrit 35.3 % (37.5-50.1); Hemoglobin 11.3 g/dL (12.9-16.9); Immature Granulocytes % 0.3 % (0-4); Lymphocytes % 16.6 %; Mean Corpuscular Hemoglobin 24.7 pg (28.0-33.3); Mean Corpuscular Volume 77.1 fL (83.0-100.0); Mean Platelet Volume 11.7 fL (9.4-12.4); Monocytes # 0.5 K/mcL (0.0-1.3); Monocytes % 8.6 %; Neutrophils # 4.3 K/mcL (1.6-8.9); Platelet Count 180 K/mcL (140-400); Red Blood Count 4.58 M/mcL (4.19-5.50); Red Cell Distribution Width 15.7 % (11.5-14.5); Segmented Neutrophils % 70.2 %
[2018-06-29] MEDS: *HR* Heparin 5,000 UNIT/ML VIAL SQ SCH ×2 (05:18→17:34)
[2018-06-29 05:33] LABS: BUN/Creatinine Ratio 14 (6-26); Blood Urea Nitrogen 16 mg/dL (6-20); Calcium 8.9 mg/dL (8.6-10.3); Carbon Dioxide 25 mEq/L (23-29); Chloride 100 mEq/L (98-107); Chol/HDL Ratio 4.8 (0-4.9); Cholesterol 198 mg/dL (< 200); Glucose 157 mg/dL (70-105); HDL Cholesterol 41 mg/dL (40-59); LDL Cholesterol,Calculated 110 mg/dL (0-99); Osmolality,Calculated 280 (280-300); Sodium 133 mEq/L (136-145); Triglycerides 233 mg/dL (< 150); eGFR For Non-African Americans > 60 (> 60)
[2018-06-29] MEDS: Insulin LISPRO 300 UNITS/3 ML VIAL SQ SCH ×4 (08:31→21:15)
--- NOTE | 2018-06-29 08:34 | Internal Med Progress Note ---
Hospitalist Progress Note - Encounter Date of Encounter: 06/29/18 Time of Encounter: 08:32 - Exam Vitals: Temp Pulse Resp BP Pulse Ox 97.8 F 77 16 101/53 97 06/29/18 06:57 06/29/18 06:57 06/29/18 06:57 06/29/18 06:57 06/29/18 06:57 Exam: General appearance: Present: A&O X 3, morbidly obese Exam: - Head Head exam: Present: atraumatic, normocephalic - Eye Eye exam: Present: PERRL, conjuntiva pink, sclera anicteric Pupils: Present: PERRL - Neck Neck exam general surgery: Present: supple, trachea midline. Absent: lymphadenopathy - Respiratory Respiratory exam: Present: CTAB. Absent: accessory muscle use, rales, rhonchi, wheezes - Cardiovascular Cardiovascular exam: Present: RRR, +S1, +S2. Absent: diastolic murmur, gallop, rubs, systolic murmur - GI/Abdominal GI/Abdominal exam: Present: normal bowel sounds, soft, no peritoneal signs. Absent: distended, tenderness - Extremities Exam Extremities exam: Present: warm, radial pulses palpable and symmetrical. Absent : calf tenderness, cyanotic, pedal edema - Neurological Exam Neurological exam: Present: CN II-XII intact, oriented X3, no focal deficits. Absent: pronater drift, facial droop, speech deficit - Skin Skin exam: Present: dry, intact - Assessment and Plan (1) Chest pain Current Visit: Yes Status: Acute Assessment and Plan: 1 patient presented with sudden onset of midsternal chest tightness occurring at rest. He does have a cardiac history had pacemaker placement after complete heart block in November of this year.-Was recently admitted for near syncope at that time device was checked which demonstrated atrial tachycardia. Cardiology has been consulted-spoke with Dr. Higgins, who suspects possible pacemaker syndrome We will continue to trend troponins Tenuous cardiac monitoring Oxygen as needed Cardiac echo dated 06/17/2018 Paced rhythm. LVEF 55%. Mild apical left ventricular systolic dysfunction. RV not well visualized 06/29 - chest tightness overnight, pain is reproducible upon palpation mostly L upper chest no arrhythmia on monitor looks to be paced rhythm all night troponin negative x 3 - awaiting cardiology recommendations cont with plavix statin and BB nitroglycerin as needed for CP (2) DVT prophylaxis Current Visit: No Status: Acute Assessment and Plan: Heparin subcutaneous (3) CKD stage 3 secondary to diabetes Current Visit: No Status: Chronic Assessment and Plan: History of CK D currently creatinine is stable we will continue to monitor Avoid nephrotoxins (4) COPD (chronic obstructive pulmonary disease) Current Visit: No Status: Chronic Assessment and Plan: History of COPD Will continue home Symbicort- stable at this time Oxygen as needed (5) Diabetes Current Visit: No Status: Chronic Assessment and Plan: We will hold oral medications for now Accu-Cheks before meals at bedtime with sliding scale insulin Diabetic diet (6) Obstructive sleep apnea Current Visit: No Status: Chronic Assessment and Plan: We will continue with BiPAP (7) Pacemaker Current Visit: No Status: Chronic Assessment and Plan: 1 continuous cardiac monitoring cardiology has been consulted to interrogate pacemaker - Time Spent with Patient Total time spent is greater than 50% in coordination of care (as documented) at patient's floor/unit and/or counseling patient: Internal Medicine: Result - Labs CBC & Chem 7: 06/29/18 04:17 06/29/18 04:17 Labs: Short CBC 06/29/18 Range/Units 04:17 WBC 6.2 (4.3-11.1) K/mcL Hgb 11.3 L (12.9-16.9) g/dL Hct 35.3 L (37.5-50.1) % Plt Count 180 (140-400) K/mcL Neutrophils # 4.3 (1.6-8.9) K/mcL BMP 06/29/18 04:17 Sodium 133 L Potassium 4.0 Chloride 100 Carbon Dioxide 25 BUN 16 Creatinine 1.17 Glucose 157 H Calcium 8.9 Cardiac Enzymes 06/28/18 06/28/18 06/29/18 Range/Units 17:14 22:39 04:17 Troponin I < 0.03 < 0.03 < 0.03 (< 0.04) ng/mL - ABG Interpretation ABG results: PT/INR, D-dimer PT 11.0 Seconds (9.4-12.1) 06/28/18 11:22 Consult Discharge Plan - Plan Referrals: Lenka Singh MD [Primary Care Provider] - (1) Chest pain Qualifiers: Chest pain type: unspecified Qualified Code(s): R07.9 - Chest pain, unspecified (4) COPD (chronic obstructive pulmonary disease) Qualifiers: COPD type: unspecified COPD Qualified Code(s): J44.9 - Chronic obstructive pulmonary disease, unspecified (5) Diabetes Qualifiers: Diabetes mellitus type: type 2 Diabetes mellitus jail insulin use: 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
[2018-06-29] MEDS: Cholecalciferol (D-3) 1,000 UNIT TABLET PO SCH (09:09)
[2018-06-29] MEDS: Loratadine 10 MG TABLET PO SCH (09:09)
[2018-06-29] MEDS: Budesonide/Formoterol 160/4.5 1 PUFF INH IH SCH (11:17)
--- NOTE | 2018-06-29 13:08 | Cardiology Consult Note ---
Date of Encounter: 06/29/18 Time of Encounter: 13:10 Assessment and Plan (1) Chest pain Current Visit: Yes Status: Acute Per Cardiology: [place] - x 4. Patient experiencing worsening dyspnea on exertion and fatigue over the past few months. Has reported history of mild nonobstructive CAD with last catheterization 2007. Risk factors include DM 2, obesity, HTN. Chest pain symptoms atypical. A lengthy discussion with patient and he is agreeable to proceed with non-exercise nuclear stress testing-- unfortunately had food today and most likely will require 2 day stress test. Further regulations pending stress test results. Will review discussed with Dr. Lee. On Plavix, statin, beta mir-- beta mir recently titrated for episodes of atrial tachycardia. Pacer check completed with no arrhythmias noted and proper functioning device. Echo 04/2018: Impressions: LVEF 60%. Indeterminate diastolic function. Definity echo contrast was used. RV appears dilated with normal function by Doppler velocity. Mild mitral regurgitation. Mild tricuspid regurgitation. Borderline pulmonary hypertension by TR gradient. IVC not well visualized to estimate RVSP. Left Ventricular Wall Motion: Rest Echo Findings All wall segments showed normal motion. Limited echo 06/2018: Impressions: Limited study for LV with contrast. Technically sub-optimal due to poor echocardiographic windows. Paced rhythm. LVEF 55%. Mild apical left ventricular systolic dysfunction. RV not well visualized Left Ventricular Wall Motion: Rest Echo Findings The apex, apical inferior, apical anterior, apical septal and apical lateral miner were hypokinetic. All other wall segments showed normal motion. Qualifiers: Chest pain type: unspecified Qualified Code(s): R07.9 - Chest pain, unspecified Discussion w patient/family: The assessment and plan as outlined above was discussed with the patient who expressed understanding and agreement. All questions were answered. Thank you for involving us in the care of your patient. Please call with any questions. History of Present Illness Consult date: 06/29/18 Requesting physician: Milagro Antunez Consult reason: cp Chief complaint: CP History of present illness: Mr. Varela is a 58 year old male past medical history of DOROTHY with CPAP, GERD, CKD , obesity, and status post PPM (complete heart block). Previous records reviewed: "Patient presented to the emergency department after experiencing midsternal chest pain occurring at rest. According to the patient he did not feel well overnight and this morning he continued to feel poorly. He was sitting in confucianism when he slid developed left-sided chest pain she described as tightness was nonradiating he did have associated symptoms of shortness of breath. He rated the pain 4 out of 10 pain is worse on inspiration . In the ER he was given Plavix since he is allergic to aspirin CTA without any evidence of PE chest x-ray with some cardiomegaly and mild vascular congestion EKG shows AV paced rhythm troponin was negative rest of lab work is unremarkable. He was recently admitted to this facility approximately 10 days ago at that time he presented with syncope he was seen by cardiology and beta mir was increased placed on lisinopril 5 mg daily. Patient states he has felt tired and weak ever since increasing his beta mir he has also been experiencing shortness of breath. He denies any orthopnea or lower extremity swelling or recent weight gain. He has not had a cardiac catheterization or stress test in the past". Cardiology Consult for CP. Patient reports overall increase in fatigue since pacemaker. Also reports since that time overall increased dyspnea on exertion. He denies any recent episodes of palpitations, dizziness, falls. He reports developed left-sided chest discomfort at rest at confucianism that is ongoing continuously at this time and worse today on exam with palpation. Slightly worsened with deep inspiration as well. Prior to Friday has not been expressing any chest pain symptoms. He reports history of catheterization 10 years ago with no stenting. Has not had a stress test or catheterization since 2007. Confirms history of DM 2, hypertension, and mild CAD. Reports history of asthma and COPD. Past Med Surg Social Fam HX - Past Medical History Attestation: Yes The following information was validated with the patient. Source: patient, old records reviewed Medical history: arthritis, asthma, CHF, COPD, coronary artery disease, DVT, diabetes, GERD, hyperlipidemia, hypertension, other Additional medical history: sleep apnea BIPAP at home. Psychiatric history: depression - Past Surgical History Surgical History: appendectomy, cholecystectomy, pacemaker/AICD, tonsilectomy Additional surgical history: lhc - Social History Smoking Status: Never smoker Smokeless Tobacco Status: No Alcohol use: none Drug use: none - Family History Mother Adopted: Yes Father Adopted: Yes Medications and Allergies Albuterol Sulfate [Ventolin Hfa] 2 puff IH Q4H PRN 08/05/15 [History] Cholecalciferol (Vitamin D3) [Vitamin D3] 2,000 unit PO DAILY 08/05/15 [History] EPINEPHrine [Epipen] 0.3 mg IM ONCE PRN 10/01/16 [History] Omeprazole [PriLOSEC] 40 mg PO DAILY 10/01/16 [History] Lovastatin 80 mg PO DAILY 07/10/17 [History] Mirtazapine [Remeron] 15 mg PO HS PRN 07/10/17 [History] Sertraline [Zoloft] 100 mg PO DAILY 07/10/17 [History] Lisinopril [Zestril] 5 mg PO DAILY #30 tablet 06/17/18 [Rx] Metoprolol [Lopressor] 25 mg PO BID #60 tablet 06/17/18 [Rx] Budesonide/Formoterol 160/4.5 [Symbicort 160/4.5] 2 puff IH DAILY 06/28/18 [ History] Clopidogrel [Plavix] 75 mg PO DAILY 06/28/18 [History] Linagliptin [Tradjenta] 5 mg PO DAILY 06/28/18 [History] Loratadine [Claritin] 10 mg PO DAILY 06/28/18 [History] metFORMIN [Glucophage] 500 mg PO BID 06/28/18 [History] 3 Allergy/AdvReac Type Severity Reaction Status Date / Time aspirin Allergy Anaphylaxis Verified 06/28/18 12:45 Bee Pollen Allergy Anaphylaxis Verified 06/28/18 12:45 naproxen [From Aleve] Allergy Anaphylaxis Verified 06/28/18 12:45 spider venom Allergy Swelling Verified 06/28/18 12:45 of Lip/Tongue/Throat All Systems Review: The remainder of the systems were reviewed and are negative - Constitutional Constitutional: fatigue - Cardiovascular Cardiovascular: as per HPI, chest pain at rest, dyspnea at rest, dyspnea on exertion Physical Examination Vital Signs, Last 4 Hours Temp Pulse Resp BP Pulse Ox 06/29/18 11:27 97.4 F L 79 15 123/70 96 06/29/18 11:21 16 97 General: Conversant, No Apparent Distress HEENT: Atraumatic, Normocephaly, Mucus Membranes Moist Neck: No JVD, Normal carotid pulses Cardiac: Reg Rate and Rhythm, Normal S1 and S2, No Murmur Lungs: Normal Breath Sounds, No Wheeze, Rales, Rhonchi Neuro: Alert and responsive, No focal deficits noted Abdomen: Soft, Non-Tender, Other (obese) Skin: No rashes noted on visualized skin Musculoskeletal: No Chest Wall Tenderness Extremities: No Clubbing, No Cyanosis, No Edema, Normal Pulses Results 06/29/18 04:17 06/29/18 04:17 Lab Results Laboratory Tests 06/28/18 06/28/18 06/28/18 11:22 11:22 11:22 Hgb Hct INR 1.0 Creatinine Est GFR (Non-Af Amer) Troponin I < 0.03 B-Natriuretic Peptide 58 LDL Cholesterol, Calc 06/28/18 06/28/18 06/29/18 17:14 22:39 04:17 Hgb 11.3 L Hct 35.3 L INR Creatinine Est GFR (Non-Af Amer) Troponin I < 0.03 < 0.03 B-Natriuretic Peptide LDL Cholesterol, Calc 06/29/18 06/29/18 04:17 04:17 Hgb Hct INR Creatinine 1.17 Est GFR (Non-Af Amer) > 60 Troponin I < 0.03 B-Natriuretic Peptide LDL Cholesterol, Calc 110 H ITS Impressions Chest X-Ray 06/28/18 10:47 IMPRESSION: Cardiomegaly with mild vascular congestion. Some of this may relate to the poor inspiration. RECOMMENDATION: Follow-up PA and lateral chest films with full inspiration when feasible. D/ / Brian Martinez MD / Brian Martinez MD Interpreting Provider: Brian Martinez MD Chest CTA 06/28/18 12:21 IMPRESSION: No evidence of pulmonary embolism. No acute abnormality. D/ / Brian Martinez MD / Brian Martinez MD Interpreting Provider: Brian Martinez MD Intake & Output 06/26/18 06/27/18 06/28/18 06/29/18 23:59 23:59 23:59 23:59 Output Total 700 / 700 Balance -700 / -700 Weight 115.5 kg 116.8 kg Active Medications Acetaminophen (Tylenol) 650 mg PO Q6HR PRN PRN Reason: Mild Pain/Fever Stop: 12/28/18 16:52 Hydrocodone Bitart/Acetaminophen ([place] 5-325 Mg) 1 tab PO Q6HR PRN PRN Reason: Moderate Pain Stop: 12/28/18 16:52 Atorvastatin Calcium (Lipitor) 20 mg PO DAILY [facility] Stop: 12/29/18 09:01 Last Admin: 06/29/18 09:09 Dose: 20 mg Budesonide/Formoterol Fumarate (Symbicort) 2 puff IH DAILY ANDREY PRN Reason: Protocol Stop: 12/29/18 09:01 Last Admin: 06/29/18 11:17 Dose: 2 puff Clopidogrel Bisulfate (Plavix) 75 mg PO DAILY [facility] Stop: 12/29/18 09:01 Last Admin: 06/29/18 09:09 Dose: 75 mg Dextrose/Water (Dextrose 50% (Syg)) 25 ml IVP AD PRN PRN Reason: Hypoglycemia Stop: 12/28/18 17:49 Glucagon (Glucagen) 1 mg IM ONCE PRN PRN Reason: Hypoglycemia Stop: 12/28/18 17:49 Glucose (Gluctose) 15 gm PO ONCE PRN PRN Reason: Hypoglycemia Stop: 12/28/18 17:49 Glucose (Gluctose) 30 gm PO ONCE PRN PRN Reason: Hypoglycemia Stop: 12/28/18 17:49 Heparin Sodium (Porcine) (Heparin) 5,000 unit SQ Q12HCO [facility] Stop: 12/28/18 18:01 Last Admin: 06/29/18 05:18 Dose: 5,000 unit Dextrose (Dextrose 5%) 1,000 mls @ 100 mls/hr IVC .Q10H PRN PRN Reason: HYPOGLYCEMIA Stop: 12/28/18 17:49 Insulin Human Lispro (Humalog) 0 units SQ TIDAC ANDREY PRN Reason: Protocol Stop: 12/29/18 07:31 Last Admin: 06/29/18 11:40 Dose: 6 units Insulin Human Lispro (Humalog) 0 units SQ HS ANDREY PRN Reason: Protocol Stop: 12/28/18 21:01 Last Admin: 06/28/18 21:32 Dose: 2 units Loratadine (Claritin) 10 mg PO DAILY ANDREY PRN Reason: Protocol Stop: 12/29/18 09:01 Last Admin: 06/29/18 09:09 Dose: 10 mg Metoprolol Tartrate (Lopressor) 25 mg PO BID [facility] Stop: 12/28/18 21:01 Last Admin: 06/29/18 09:09 Dose: 25 mg Mirtazapine (Remeron) 15 mg PO HS PRN PRN Reason: Sleep Stop: 12/28/18 16:54 Naloxone HCl (Narcan) 0.4 mg IVP Q2MIN PRN PRN Reason: SEE COMMENTS Stop: 12/28/18 16:52 Nitroglycerin (Nitroglycerin) 0.4 mg SL Q5MIN PRN PRN Reason: Chest Pain Stop: 12/28/18 10:54 Last Admin: 06/28/18 11:14 Dose: 0.4 mg Omeprazole (Prilosec) 40 mg PO DAILY [facility] Stop: 12/29/18 09:01 Last Admin: 06/29/18 09:09 Dose: 40 mg Sertraline HCl (Zoloft) 100 mg PO DAILY [facility] Stop: 12/29/18 09:01 Last Admin: 06/29/18 09:09 Dose: 100 mg Vitamin D (Vitamin D) 1,000 unit PO DAILY [facility] PRN Reason: Protocol Stop: 12/29/18 09:01 Last Admin: 06/29/18 09:09 Dose: 1,000 unit - Imaging and Cardiology Echo: report reviewed - EKG Interpretation EKG results cardiology: personally reviewed, no diagnostic ischemia, ventricular paced rhythm Consult Discharge Plan - Plan Referrals: Lenka Singh MD [Primary Care Provider] -
[2018-06-30] MEDS: *HR* Heparin 5,000 UNIT/ML VIAL SQ SCH ×2 (05:49→18:27)
[2018-06-30] MEDS ORDERED: Regadenoson 0.4 MG/5 ML SYRINGE IVP ONE (05:56)
[2018-06-30] MEDS: Insulin LISPRO 300 UNITS/3 ML VIAL SQ SCH ×4 (07:45→20:33)
[2018-06-30] MEDS: Cholecalciferol (D-3) 1,000 UNIT TABLET PO SCH (10:40)
[2018-06-30] MEDS: Loratadine 10 MG TABLET PO SCH (10:40)
[2018-06-30] MEDS: Budesonide/Formoterol 160/4.5 1 PUFF INH IH SCH (11:00)
--- NOTE | 2018-06-30 12:15 | Cardiology Progress Note ---
Date of Encounter: 06/30/18 Time of Encounter: 12:10 Assessment and Plan (1) Chest pain Current Visit: Yes Status: Acute Troponin negative x 4. Patient experiencing worsening dyspnea on exertion and fatigue over the past few months. Reported history of mild nonobstructive CAD with last catheterization 2007. Risk factors include DM 2, obesity, HTN. Chest pain symptoms atypical. 2 day stress test ordered--first portion today, will be completed tomorrow. On Plavix, statin, beta mir-- beta mir recently titrated for episodes of atrial tachycardia. Pacer check completed with no arrhythmias noted and proper functioning device. Limited TTE 06/2018 Paced rhythm. LVEF 55%. Mild apical left ventricular systolic dysfunction. Continue to follow. Qualifiers: Chest pain type: unspecified Qualified Code(s): R07.9 - Chest pain, unspecified Discussion w patient/family: The assessment and plan as outlined above was discussed with the patient and/or family members who expressed understanding and agreement. All questions were answered. Thank you for involving us in the care of your patient. Please call with any questions. I will discuss all the above with Dr. Lee and make changes as necessary. Subjective Principal diagnosis: chest pain Interval history: Pt denies chest pain overnight. Reports dyspnea is still worse than baseline. Completed day 1 of his 2 day stress test. Objective Vital Signs, Last 4 Hours Temp Pulse Resp BP Pulse Ox 06/30/18 11:14 97.7 F 75 15 136/73 97 06/30/18 11:01 15 95 Vital Signs Temp Pulse Resp BP Pulse Ox 06/30/18 11:14 97.7 F 75 15 136/73 97 06/30/18 11:01 15 95 06/30/18 06:38 98.1 F 72 15 122/69 95 06/30/18 03:58 97.5 F L 63 16 106/67 100 06/30/18 00:44 18 101/67 98 06/29/18 23:10 97.7 F 74 16 101/67 98 06/29/18 22:10 18 101/67 98 06/29/18 19:03 98.1 F 76 16 120/69 91 06/29/18 15:16 97.8 F 79 15 106/65 97 Intake and Output 06/29/18 06/30/18 06/30/18 23:59 07:59 15:59 Output Total 790 / 790 240 / 240 Balance -790 / -790 -240 / -240 Output: Urine 790 / 790 240 / 240 Other: Weight 115.2 kg Blood Glucose* 174 214 Patient Weight 06/30/18 23:59 Weight 115.2 kg General: Conversant, No Apparent Distress HEENT: Atraumatic, Normocephaly, Mucus Membranes Moist Neck: No JVD, Normal carotid pulses Cardiac: Reg Rate and Rhythm, Normal S1 and S2, No Murmur Lungs: Normal Breath Sounds, No Wheeze, Rales, Rhonchi Neuro: Alert and responsive, No focal deficits noted Abdomen: Soft, Non-Tender Skin: No rashes noted on visualized skin Musculoskeletal: No Chest Wall Tenderness Extremities: No Clubbing, No Cyanosis, No Edema, Normal Pulses Results 06/29/18 04:17 06/29/18 04:17 Active Medications Acetaminophen (Tylenol) 650 mg PO Q6HR PRN PRN Reason: Mild Pain/Fever Stop: 12/28/18 16:52 Hydrocodone Bitart/Acetaminophen ([place] 5-325 Mg) 1 tab PO Q6HR PRN PRN Reason: Moderate Pain Stop: 12/28/18 16:52 Atorvastatin Calcium (Lipitor) 20 mg PO DAILY [facility] Stop: 12/29/18 09:01 Last Admin: 06/30/18 10:39 Dose: 20 mg Budesonide/Formoterol Fumarate (Symbicort) 2 puff IH DAILY ANDREY PRN Reason: Protocol Stop: 12/29/18 09:01 Last Admin: 06/30/18 11:00 Dose: 2 puff Clopidogrel Bisulfate (Plavix) 75 mg PO DAILY [facility] Stop: 12/29/18 09:01 Last Admin: 06/30/18 10:40 Dose: 75 mg Dextrose/Water (Dextrose 50% (Syg)) 25 ml IVP AD PRN PRN Reason: Hypoglycemia Stop: 12/28/18 17:49 Glucagon (Glucagen) 1 mg IM ONCE PRN PRN Reason: Hypoglycemia Stop: 12/28/18 17:49 Glucose (Gluctose) 15 gm PO ONCE PRN PRN Reason: Hypoglycemia Stop: 12/28/18 17:49 Glucose (Gluctose) 30 gm PO ONCE PRN PRN Reason: Hypoglycemia Stop: 12/28/18 17:49 Heparin Sodium (Porcine) (Heparin) 5,000 unit SQ Q12HCO [facility] Stop: 12/28/18 18:01 Last Admin: 06/30/18 05:49 Dose: 5,000 unit Dextrose (Dextrose 5%) 1,000 mls @ 100 mls/hr IVC .Q10H PRN PRN Reason: HYPOGLYCEMIA Stop: 12/28/18 17:49 Insulin Human Lispro (Humalog) 0 units SQ TIDAC ANDREY PRN Reason: Protocol Stop: 12/29/18 07:31 Last Admin: 06/30/18 07:45 Dose: Not Given Insulin Human Lispro (Humalog) 0 units SQ HS ANDREY PRN Reason: Protocol Stop: 12/28/18 21:01 Last Admin: 06/29/18 21:15 Dose: Not Given Loratadine (Claritin) 10 mg PO DAILY ANDREY PRN Reason: Protocol Stop: 12/29/18 09:01 Last Admin: 06/30/18 10:40 Dose: 10 mg Metoprolol Tartrate (Lopressor) 25 mg PO BID [facility] Stop: 12/28/18 21:01 Last Admin: 06/30/18 10:40 Dose: 25 mg Mirtazapine (Remeron) 15 mg PO HS PRN PRN Reason: Sleep Stop: 12/28/18 16:54 Naloxone HCl (Narcan) 0.4 mg IVP Q2MIN PRN PRN Reason: SEE COMMENTS Stop: 12/28/18 16:52 Nitroglycerin (Nitroglycerin) 0.4 mg SL Q5MIN PRN PRN Reason: Chest Pain Stop: 12/28/18 10:54 Last Admin: 06/28/18 11:14 Dose: 0.4 mg Omeprazole (Prilosec) 40 mg PO DAILY [facility] Stop: 12/29/18 09:01 Last Admin: 06/30/18 10:39 Dose: 40 mg Sertraline HCl (Zoloft) 100 mg PO DAILY [facility] Stop: 12/29/18 09:01 Last Admin: 06/30/18 10:40 Dose: 100 mg Vitamin D (Vitamin D) 1,000 unit PO DAILY ANDREY PRN Reason: Protocol Stop: 12/29/18 09:01 Last Admin: 06/30/18 10:40 Dose: 1,000 unit - Imaging and Cardiology Stress Test: report reviewed Echo: report reviewed - EKG Interpretation EKG results cardiology: other (12 hr tele AVG HR 74, SR, no significant pauses or arrhythmias) Consult Discharge Plan - Plan Referrals: Lenka Singh MD [Primary Care Provider] -
--- NOTE | 2018-06-30 16:39 | Internal Med Progress Note ---
Hospitalist Progress Note - Encounter Date of Encounter: 06/30/18 Time of Encounter: 10:15 - Subjective Interval History: cont intermittent chest pain, left chest and radiates to left arm. no assoicated n/v/diaphroesis or sob. no palpitations, presyncope, le edema or orthopnea - Exam Vitals: Temp Pulse Resp BP Pulse Ox 97.6 F 75 20 121/66 97 06/30/18 15:37 06/30/18 15:37 06/30/18 15:37 06/30/18 16:11 06/30/18 11:14 Exam: General: awake, alert, appears stated age HEENT:EOM intact, pupils equal, round, moist mucus membranes Neck: supple, trachea midline Cardiovascular:regular rate and rhythm, normal S1 & S2, no rubs, murmurs or gallops. No JVD. radial pulses 2+, no lower extremity edema Lungs:Normal breath sounds, no wheezes, or crackles. Normal respiratory effort on O2 NC Abdomen:Soft, non-tender, non-distended, + bowel sounds Neurological: AAOx3 Skin:Normal color, no rash, no pallor - Assessment and Plan (1) Chest pain Current Visit: Yes Status: Acute Assessment and Plan: 1 patient presented with sudden onset of midsternal chest tightness occurring at rest. He does have a cardiac history had pacemaker placement after complete heart block in November of this year.-Was recently admitted for near syncope at that time device was checked which demonstrated atrial tachycardia. Rule out ACS, vs ischemic chest pain, vs device malfunction vs arrhythmia Cardiac echo dated 06/17/2018 Paced rhythm. LVEF 55%. Mild apical left ventricular systolic dysfunction. RV not well visualized CAD with last [facility] 2007 and reported mild non obstructive CAD -Oxygen prn -tele -serial trops neg -cards consulted-two day stress test started 06/30, will complete 07/01 Pacer check completed with no arrhythmias noted and proper functioning device. -Plavix, statin, beta mir-- beta mir recently titrated for episodes of atrial tachycardia -fu addl cards recs (2) Obstructive sleep apnea Current Visit: No Status: Chronic Assessment and Plan: We will continue with cpap (3) Diabetes Current Visit: No Status: Chronic Assessment and Plan: We will hold oral medications for now Accu-Cheks before meals at bedtime with sliding scale insulin Diabetic diet (4) COPD (chronic obstructive pulmonary disease) Current Visit: No Status: Chronic Assessment and Plan: History of COPD Will continue home Symbicort- stable at this time Oxygen as needed (5) CKD stage 3 secondary to diabetes Current Visit: No Status: Chronic Assessment and Plan: History of CKD currently creatinine is stable we will continue to monitor Avoid nephrotoxins (6) Pacemaker Current Visit: No Status: Chronic Assessment and Plan: continuous cardiac monitoring cardiology has been consulted to interrogate pacemaker as above (7) DVT prophylaxis Current Visit: No Status: Acute Assessment and Plan: Heparin subcutaneous - Time Spent with Patient Total time spent is greater than 50% in coordination of care (as documented) at patient's floor/unit and/or counseling patient: Internal Medicine: Result - Labs CBC & Chem 7: 06/29/18 04:17 06/29/18 04:17 - ABG Interpretation ABG results: PT/INR, D-dimer PT 11.0 Seconds (9.4-12.1) 06/28/18 11:22 Consult Discharge Plan - Plan Referrals: Lenka Singh MD [Primary Care Provider] - (1) Chest pain Qualifiers: Chest pain type: unspecified Qualified Code(s): R07.9 - Chest pain, unspecified (3) Diabetes Qualifiers: Diabetes mellitus type: type 2 Diabetes mellitus skilled nursing insulin use: without equipment operator intermodal yard use Diabetes mellitus complication status: with unspecified complications Qualified Code(s): E11.8 - Type 2 diabetes mellitus with unspecified complications (4) COPD (chronic obstructive pulmonary disease) Qualifiers: COPD type: unspecified COPD Qualified Code(s): J44.9 - Chronic obstructive pulmonary disease, unspecified
--- NOTE | 2018-06-30 17:50 | Electrocardiograph Report ---
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
[2018-07-01 05:55] LABS: Basophils % 0.4 %; Eosinophils # 0.2 K/mcL (0.0-0.6); Hematocrit 39.5 % (37.5-50.1); Hemoglobin 12.6 g/dL (12.9-16.9); Immature Granulocytes % 0.4 % (0-4); Lymphocytes # 1.4 K/mcL (0.6-4.6); Lymphocytes % 19.6 %; Mean Corpuscular HGB Conc 31.9 g/dL (31.6-35.5); Mean Corpuscular Volume 78.4 fL (83.0-100.0); Monocytes # 0.6 K/mcL (0.0-1.3); Monocytes % 8.8 %; Neutrophils # 4.8 K/mcL (1.6-8.9); Platelet Count 180 K/mcL (140-400); Red Blood Count 5.04 M/mcL (4.19-5.50); Red Cell Distribution Width 15.6 % (11.5-14.5); Segmented Neutrophils % 67.8 %
[2018-07-01] MEDS: *HR* Heparin 5,000 UNIT/ML VIAL SQ SCH (06:03)
[2018-07-01 06:51] LABS: BUN/Creatinine Ratio 16 (6-26); Blood Urea Nitrogen 17 mg/dL (6-20); Calcium 9.5 mg/dL (8.6-10.3); Carbon Dioxide 27 mEq/L (23-29); Chloride 99 mEq/L (98-107); Glucose 155 mg/dL (70-105); Osmolality,Calculated 285 (280-300); Potassium 4.3 mEq/L (3.5-5.1); Sodium 135 mEq/L (136-145); eGFR For Non-African Americans > 60 (> 60)
[2018-07-01] MEDS: Insulin LISPRO 300 UNITS/3 ML VIAL SQ SCH ×2 (07:30→12:06)
[2018-07-01] MEDS: Budesonide/Formoterol 160/4.5 1 PUFF INH IH SCH (08:23)
[2018-07-01] MEDS: Loratadine 10 MG TABLET PO SCH (09:43)
[2018-07-01] MEDS: Cholecalciferol (D-3) 1,000 UNIT TABLET PO SCH (09:43)
--- NOTE | 2018-07-01 12:10 | Cardiology Progress Note ---
Date of Encounter: 07/01/18 Time of Encounter: 12:07 Assessment and Plan (1) Chest pain Current Visit: Yes Status: Acute Troponin negative x 4. Patient experiencing worsening dyspnea on exertion and fatigue over the past few months. Reported history of mild nonobstructive CAD with last catheterization 2014. Risk factors include DM 2, obesity, HTN. Chest pain symptoms atypical. 2 day stress test completed. Perfusion imaging negative for ischemia or infarct. On Plavix, statin, beta mir-- beta mir recently titrated for episodes of atrial tachycardia. Pacer check completed with no arrhythmias noted and proper functioning device. Limited TTE 06/2018 Paced rhythm. LVEF 55%. Mild apical left ventricular systolic dysfunction. Cardiology signing off. Reconsult PRN. Coordinate outpt follow-up in 3-4 weeks. Qualifiers: Chest pain type: unspecified Qualified Code(s): R07.9 - Chest pain, unspecified Discussion w patient/family: The assessment and plan as outlined above was discussed with the patient and/or family members who expressed understanding and agreement. All questions were answered. Thank you for involving us in the care of your patient. Please call with any questions. I will discuss all the above with Dr. Lee and make changes as necessary. Subjective Principal diagnosis: chest pain Interval history: Pt denies chest pain overnight. Reports dyspnea is still worse than baseline. 2 day stress test resulted--perfusion imaging negative for ischemia or infarct. Objective Vital Signs, Last 4 Hours Temp Pulse Resp BP Pulse Ox 07/01/18 11:52 97.8 F 73 15 120/70 96 07/01/18 08:44 12 97 07/01/18 08:23 97.8 F 77 15 113/65 94 Vital Signs Temp Pulse Resp BP Pulse Ox 07/01/18 11:52 97.8 F 73 15 120/70 96 07/01/18 08:44 12 97 07/01/18 08:23 97.8 F 77 15 113/65 94 07/01/18 03:10 98.4 F 75 16 118/69 93 06/30/18 23:11 97.9 F 69 16 122/70 99 06/30/18 22:35 23 99 06/30/18 18:49 97.7 F 72 16 129/69 95 06/30/18 16:11 121/66 06/30/18 15:37 97.6 F 75 20 99/66 Intake and Output 06/30/18 07/01/18 07/01/18 23:59 07:59 15:59 Output Total 875 / 875 Balance -875 / -875 Output: Urine 875 / 875 Other: Weight 113.6 kg Blood Glucose* 194 140 Patient Weight 07/01/18 23:59 Weight 113.6 kg General: Conversant, No Apparent Distress HEENT: Atraumatic, Normocephaly, Mucus Membranes Moist Neck: No JVD, Normal carotid pulses Cardiac: Reg Rate and Rhythm, Normal S1 and S2, No Murmur Lungs: Normal Breath Sounds, No Wheeze, Rales, Rhonchi Neuro: Alert and responsive, No focal deficits noted Abdomen: Soft, Non-Tender Skin: No rashes noted on visualized skin Musculoskeletal: No Chest Wall Tenderness Extremities: No Clubbing, No Cyanosis, No Edema, Normal Pulses Results 07/01/18 05:03 07/01/18 05:03 Lab Results 07/01/18 07/01/18 05:03 05:03 WBC 7.1 Hgb 12.6 L Hct 39.5 Plt Count 180 Sodium 135 L Potassium 4.3 Chloride 99 Carbon Dioxide 27 BUN 17 Creatinine 1.08 Glucose 155 H Calcium 9.5 Short CBC 07/01/18 Range/Units 05:03 WBC 7.1 (4.3-11.1) K/mcL Hgb 12.6 L (12.9-16.9) g/dL Hct 39.5 (37.5-50.1) % Plt Count 180 (140-400) K/mcL Neutrophils # 4.8 (1.6-8.9) K/mcL BMP 07/01/18 Range/Units 05:03 Sodium 135 L (136-145) mEq/L Potassium 4.3 (3.5-5.1) mEq/L Chloride 99 (98-107) mEq/L Carbon Dioxide 27 (23-29) mEq/L BUN 17 (6-20) mg/dL Creatinine 1.08 (0.70-1.30) mg/dL Glucose 155 H (70-105) mg/dL Calcium 9.5 (8.6-10.3) mg/dL Active Medications Acetaminophen (Tylenol) 650 mg PO Q6HR PRN PRN Reason: Mild Pain/Fever Stop: 12/28/18 16:52 Hydrocodone Bitart/Acetaminophen ([place] 5-325 Mg) 1 tab PO Q6HR PRN PRN Reason: Moderate Pain Stop: 12/28/18 16:52 Atorvastatin Calcium (Lipitor) 20 mg PO DAILY [facility] Stop: 12/29/18 09:01 Last Admin: 07/01/18 09:43 Dose: 20 mg Budesonide/Formoterol Fumarate (Symbicort) 2 puff IH DAILY [facility] PRN Reason: Protocol Stop: 12/29/18 09:01 Last Admin: 07/01/18 08:23 Dose: 2 puff Clopidogrel Bisulfate (Plavix) 75 mg PO DAILY [facility] Stop: 12/29/18 09:01 Last Admin: 07/01/18 09:43 Dose: 75 mg Dextrose/Water (Dextrose 50% (Syg)) 25 ml IVP AD PRN PRN Reason: Hypoglycemia Stop: 12/28/18 17:49 Glucagon (Glucagen) 1 mg IM ONCE PRN PRN Reason: Hypoglycemia Stop: 12/28/18 17:49 Glucose (Gluctose) 15 gm PO ONCE PRN PRN Reason: Hypoglycemia Stop: 12/28/18 17:49 Glucose (Gluctose) 30 gm PO ONCE PRN PRN Reason: Hypoglycemia Stop: 12/28/18 17:49 Heparin Sodium (Porcine) (Heparin) 5,000 unit SQ Q12HCO [facility] Stop: 12/28/18 18:01 Last Admin: 07/01/18 06:03 Dose: 5,000 unit Dextrose (Dextrose 5%) 1,000 mls @ 100 mls/hr IVC .Q10H PRN PRN Reason: HYPOGLYCEMIA Stop: 12/28/18 17:49 Insulin Human Lispro (Humalog) 0 units SQ TIDAC [facility] PRN Reason: Protocol Stop: 12/29/18 07:31 Last Admin: 07/01/18 12:06 Dose: Not Given Insulin Human Lispro (Humalog) 0 units SQ HS [facility] PRN Reason: Protocol Stop: 12/28/18 21:01 Last Admin: 06/30/18 20:33 Dose: Not Given Loratadine (Claritin) 10 mg PO DAILY [facility] PRN Reason: Protocol Stop: 12/29/18 09:01 Last Admin: 07/01/18 09:43 Dose: 10 mg Metoprolol Tartrate (Lopressor) 25 mg PO BID [facility] Stop: 12/28/18 21:01 Last Admin: 07/01/18 09:43 Dose: 25 mg Mirtazapine (Remeron) 15 mg PO HS PRN PRN Reason: Sleep Stop: 12/28/18 16:54 Naloxone HCl (Narcan) 0.4 mg IVP Q2MIN PRN PRN Reason: SEE COMMENTS Stop: 12/28/18 16:52 Nitroglycerin (Nitroglycerin) 0.4 mg SL Q5MIN PRN PRN Reason: Chest Pain Stop: 12/28/18 10:54 Last Admin: 06/28/18 11:14 Dose: 0.4 mg Omeprazole (Prilosec) 40 mg PO DAILY [facility] Stop: 12/29/18 09:01 Last Admin: 07/01/18 09:43 Dose: 40 mg Sertraline HCl (Zoloft) 100 mg PO DAILY [facility] Stop: 12/29/18 09:01 Last Admin: 07/01/18 09:43 Dose: 100 mg Vitamin D (Vitamin D) 1,000 unit PO DAILY [facility] PRN Reason: Protocol Stop: 12/29/18 09:01 Last Admin: 07/01/18 09:43 Dose: 1,000 unit - Imaging and Cardiology Stress Test: report reviewed Echo: report reviewed - EKG Interpretation EKG results cardiology: other (12 hr tele AVG HR 76, paced) Consult Discharge Plan - Plan Referrals: Lenka Singh MD [Primary Care Provider] -
[2018-07-01 15:42] VITALS: BP 130/71
--- NOTE | 2018-07-01 16:05 | Internal Med Progress Note ---
Hospitalist Progress Note - Encounter Date of Encounter: 07/01/18 Time of Encounter: 11:00 - Subjective Interval History: cont intermittent dull chest pain left chest, no radiation, no assoicated n/v/ diaphroesis or sob. no palpitations, presyncope, le edema or orthopnea. He has sob at baseline and feels it is unchanged. - Exam Vitals: Temp Pulse Resp BP Pulse Ox 97.9 F 75 15 130/71 96 07/01/18 15:40 07/01/18 15:40 07/01/18 15:40 07/01/18 15:40 07/01/18 15:40 Exam: General: awake, alert, appears stated age Cardiovascular:regular rate and rhythm, normal S1 & S2, no rubs, murmurs or gallops. No JVD. radial pulses 2+, no lower extremity edema Lungs:Normal breath sounds, no wheezes, or crackles. Normal respiratory effort on ra Abdomen:Soft, non-tender, non-distended, + bowel sounds Neurological: AAOx3 - Assessment and Plan (1) Chest pain Current Visit: Yes Status: Acute Assessment and Plan: 1 patient presented with sudden onset of midsternal chest tightness occurring at rest. He does have a cardiac history had pacemaker placement after complete heart block in November of this year.-Was recently admitted for near syncope at that time device was checked which demonstrated atrial tachycardia. Rule out ACS, vs ischemic chest pain, vs device malfunction vs arrhythmia Cardiac echo dated 06/17/2018 Paced rhythm. LVEF 55%. Mild apical left ventricular systolic dysfunction. RV not well visualized CAD with last [facility] 2007 and reported mild non obstructive CAD -Oxygen prn -tele -serial trops neg -CXR mild vascular congestion possible, no consolidation or effusions -CTA chest no pe -cards consulted-two day stress test started 06/30, complete 07/01--negative for ischemia or infarct Pacer check completed with no arrhythmias noted and proper functioning device. -Plavix, statin, beta mir-- beta mir recently titrated for episodes of atrial tachycardia -will require fu with cards in 3-4 weeks on dc with dr Lee -increase activity (2) Obstructive sleep apnea Current Visit: No Status: Chronic Assessment and Plan: We will continue with cpap (3) Diabetes Current Visit: No Status: Chronic Assessment and Plan: We will hold oral medications for now Accu-Cheks before meals at bedtime with sliding scale insulin Diabetic diet (4) COPD (chronic obstructive pulmonary disease) Current Visit: No Status: Chronic Assessment and Plan: History of COPD Will continue home Symbicort- stable at this time Oxygen as needed (5) CKD stage 3 secondary to diabetes Current Visit: No Status: Chronic Assessment and Plan: History of CKD currently creatinine is stable we will continue to monitor Anemia, likely of chronic disease, hgb range 11-12s, fu with outpt provider, no active bleeding this admission Avoid nephrotoxins (6) Pacemaker Current Visit: No Status: Chronic Assessment and Plan: continuous cardiac monitoring cardiology has been consulted to interrogate pacemaker as above (7) DVT prophylaxis Current Visit: No Status: Acute Assessment and Plan: Heparin subcutaneous - Time Spent with Patient Total time spent is greater than 50% in coordination of care (as documented) at patient's floor/unit and/or counseling patient: 25 - 35 minutes Plan of Care Discussed with: patient Internal Medicine: Result - Labs CBC & Chem 7: 07/01/18 05:03 07/01/18 05:03 Labs: Short CBC 07/01/18 Range/Units 05:03 WBC 7.1 (4.3-11.1) K/mcL Hgb 12.6 L (12.9-16.9) g/dL Hct 39.5 (37.5-50.1) % Plt Count 180 (140-400) K/mcL Neutrophils # 4.8 (1.6-8.9) K/mcL BMP 07/01/18 05:03 Sodium 135 L Potassium 4.3 Chloride 99 Carbon Dioxide 27 BUN 17 Creatinine 1.08 Glucose 155 H Calcium 9.5 - ABG Interpretation ABG results: PT/INR, D-dimer PT 11.0 Seconds (9.4-12.1) 06/28/18 11:22 Consult Discharge Plan - Plan Referrals: Lenka Singh MD [Primary Care Provider] - (1) Chest pain Qualifiers: Chest pain type: unspecified Qualified Code(s): R07.9 - Chest pain, unspecified (3) Diabetes Qualifiers: Diabetes mellitus type: type 2 Diabetes mellitus exterminator helper insulin use: without exterminator helper use Diabetes mellitus complication status: with unspecified complications Qualified Code(s): E11.8 - Type 2 diabetes mellitus with unspecified complications (4) COPD (chronic obstructive pulmonary disease) Qualifiers: COPD type: unspecified COPD Qualified Code(s): J44.9 - Chronic obstructive pulmonary disease, unspecified
--- NOTE | 2018-07-01 16:11 | Discharge Summary ---
- NOTES TO OUTPATIENT PROVIDER Notes to Outpatient Provider: work up for chest pain including cxr, cta, tele monitoring, stress test were all unremarkable; he may fu with cards in 3-4 weeks. Bandarhter assesment of other causes of chest discomofrt such as msk and gi deferred to outpt setting Orders not resulted at time of discharge: Pending orders 06/29/18 13:41 NM ac perf SPECT multi [NM] Routine Date of Encounter: 07/01/18 Time of Encounter: 11:00 - Discharge Diagnosis (1) Chest pain Priority: Primary Status: Acute Assessment and Plan: 1 patient presented with sudden onset of midsternal chest tightness occurring at rest. He does have a cardiac history had pacemaker placement after complete heart block in November of this year.-Was recently admitted for near syncope at that time device was checked which demonstrated atrial tachycardia. Rule out ACS, vs ischemic chest pain, vs device malfunction vs arrhythmia Cardiac echo dated 06/17/2018 Paced rhythm. LVEF 55%. Mild apical left ventricular systolic dysfunction. RV not well visualized CAD with last [facility] 2007 and reported mild non obstructive CAD -Oxygen prn -tele -serial trops neg -CXR mild vascular congestion possible, no consolidation or effusions -CTA chest no pe -cards consulted-two day stress test started 06/30, complete 07/01--negative for ischemia or infarct Pacer check completed with no arrhythmias noted and proper functioning device. -Plavix, statin, beta mir-- beta mir recently titrated for episodes of atrial tachycardia -will require fu with cards in 3-4 weeks on dc with dr Lee Qualifiers: Chest pain type: unspecified Qualified Code(s): R07.9 - Chest pain, unspecified (2) Obstructive sleep apnea Priority: Secondary Status: Chronic Assessment and Plan: We will continue with cpap (3) Diabetes Priority: Secondary Status: Chronic Assessment and Plan: heldoral medications inpt, Accu-Cheks with sliding scale insulin Diabetic diet may resume home regimen on dc Qualifiers: Diabetes mellitus type: type 2 Diabetes mellitus assisted insulin use: without watermelon harvesting supervisor use Diabetes mellitus complication status: with unspecified complications Qualified Code(s): E11.8 - Type 2 diabetes mellitus with unspecified complications (4) COPD (chronic obstructive pulmonary disease) Priority: Secondary Status: Chronic Assessment and Plan: History of COPD continue home Symbicort- stable at this time Qualifiers: COPD type: unspecified COPD Qualified Code(s): J44.9 - Chronic obstructive pulmonary disease, unspecified (5) CKD stage 3 secondary to diabetes Priority: Secondary Status: Chronic Assessment and Plan: History of CKD currently creatinine is stable we will continue to monitor Anemia, likely of chronic disease, hgb range 11-12s, fu with outpt provider, no active bleeding this admission Avoid nephrotoxins (6) Pacemaker Priority: Secondary Status: Chronic Assessment and Plan: continuous cardiac monitoring cardiology has been consulted to interrogate pacemaker as above (7) DVT prophylaxis Priority: Secondary Status: Acute Assessment and Plan: Heparin subcutaneous Hospital course: Mr. Varela is a 58 year old male who presented with chest pain. work up included tele monitoring, cxr, cta chest, stress test, all unremarkable. cardiology followed and will see in outpt setting. Full details of admission in assessment/ plan documentation. dc to home in stable condition with pcp and cards follow up Discharge discussed with: patient - Time Spent with Patient Total time spent providing and/or coordinating discharge services: Less than 30 minutes - Discharge Medications Home Medications: Albuterol Sulfate [Ventolin Hfa] 2 puff IH Q4H PRN 08/05/15 [History] Cholecalciferol (Vitamin D3) [Vitamin D3] 2,000 unit PO DAILY 08/05/15 [History] EPINEPHrine [Epipen] 0.3 mg IM ONCE PRN 10/01/16 [History] Omeprazole [PriLOSEC] 40 mg PO DAILY 10/01/16 [History] Lovastatin 80 mg PO DAILY 07/10/17 [History] Mirtazapine [Remeron] 15 mg PO HS PRN 07/10/17 [History] Sertraline [Zoloft] 100 mg PO DAILY 07/10/17 [History] Lisinopril [Zestril] 5 mg PO DAILY #30 tablet 06/17/18 [Rx] Metoprolol [Lopressor] 25 mg PO BID #60 tablet 06/17/18 [Rx] Budesonide/Formoterol 160/4.5 [Symbicort 160/4.5] 2 puff IH DAILY 06/28/18 [ History] Clopidogrel [Plavix] 75 mg PO DAILY 06/28/18 [History] Linagliptin [Tradjenta] 5 mg PO DAILY 06/28/18 [History] Loratadine [Claritin] 10 mg PO DAILY 06/28/18 [History] metFORMIN [Glucophage] 500 mg PO BID 06/28/18 [History] Allergies/Adverse Reactions: 3 Allergy/AdvReac Type Severity Reaction Status Date / Time aspirin Allergy Anaphylaxis Verified 06/28/18 12:45 Bee Pollen Allergy Anaphylaxis Verified 06/28/18 12:45 naproxen [From Aleve] Allergy Anaphylaxis Verified 06/28/18 12:45 spider venom Allergy Swelling Verified 06/28/18 12:45 of Lip/Tongue/Throat Date of admission: 06/28/18 14:55 Primary care physician: Lenka Singh Consults: 06/28/18 17:07 Consult to Cardiology [CONS] Routine Comment: Consulting Provider: Cardiology Khadra Reason for Consult: concern for pacemaker syndrome Time Notified: 17:07 Call Completed: Yes Discharging clinician: Katie Phoenix - Constitutional Vitals: Temp Pulse Resp BP Pulse Ox 97.9 F 75 15 130/71 96 07/01/18 15:40 07/01/18 15:40 07/01/18 15:40 07/01/18 15:40 07/01/18 15:40 General appearance: Present: A&O X 3, morbidly obese Exam: General: awake, alert, appears stated age Cardiovascular:regular rate and rhythm, normal S1 & S2, no rubs, murmurs or gallops. No JVD. radial pulses 2+, no lower extremity edema Lungs:Normal breath sounds, no wheezes, or crackles. Normal respiratory effort on ra Abdomen:Soft, non-tender, non-distended, + bowel sounds Neurological: AAOx3 - Patient Status Disposition: Home, Self-Care Condition: Good - Discharge Instructions Follow Up With: Lenka Singh MD [Primary Care Provider] - Tito Lee MD [Non-Partnered Physician] - - Diet and Activity Activity: increase activity as tolerated
== END 2018-07-01 18:15 | disposition home or self-care (01) ==
LOC: EMEROOARM 10:40 → 3BNU 10:40 → SUATTDRO 14:55 → 3BNU 15:50
PROVIDERS: ADMIT Student in an Organized Health Care Education/Training Program; ATTEND Internal Medicine

== ENCOUNTER 2018-08-22 17:02 | Observation (INO) ==
--- NOTE | 2018-08-22 17:41 | Emergency Department Note ---
Disposition Clinical Impression: Dyspnea Qualifiers: Dyspnea type: dyspnea on exertion Qualified Code(s): R06.09 - Other forms of dyspnea Acute exacerbation of congestive heart failure Qualifiers: Heart failure type: systolic Qualified Code(s): I50.23 - Acute on chronic systolic (congestive) heart failure Disposition: Admitted As Inpatient Condition: Good Referrals: Lenka Singh MD [Primary Care Provider] - Forms: ED Satisfaction Letter Time of Disposition: 20:29 General Adult HPI - General Chief complaint: ED Shortness of Breath/Dyspnea Stated complaint: cough, congestion, RLE pain Time Seen by Provider: 08/22/18 17:10 Source: patient Limitations: no limitations Nursing Notes Reviewed: Yes Vital Signs Reviewed: Yes - History of Present Illness HPI Narrative: Chase Varela is a 58 year old male presenting to the emergency department for shortness of breath. He states that for the past week he has been having progressively worsening SOB with a cough producing green sputum. He states that it has gotten to the point where he can no longer lay flat while sleeping and has to lean forward, otherwise he feels like he is choking. He states that he has a history of COPD, CHF, and asthma. He denies use of diuretics, but admits to use of his Proair inhaler with minimal improvement. He denies nausea, vomiting, abdominal pain, fevers, chills, rhinorrhea, sore throat, or chest pain. He states that he had a pacemaker placed 5 months ago for heart block, and a cardiac stress test with echocardiogram done 2 months ago which were wnl. 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 I have reperformed and reviewed the history documented by the medical student, and I confirm its accuracy except as noted below. Onset (ago): week(s) (1) Pain Scale: 6 - Related Data Home Medications Medication Instructions Recorded Confirmed Albuterol Sulfate [Ventolin Hfa] 2 puff IH Q4H PRN 08/05/15 06/28/18 Cholecalciferol (Vitamin D3) 2,000 unit PO DAILY 08/05/15 06/28/18 [Vitamin D3] EPINEPHrine [Epipen] 0.3 mg IM ONCE PRN 10/01/16 06/28/18 Omeprazole [PriLOSEC] 40 mg PO DAILY 10/01/16 06/28/18 Lovastatin 80 mg PO DAILY 07/10/17 06/28/18 Mirtazapine [Remeron] 15 mg PO HS PRN 07/10/17 06/28/18 Sertraline [Zoloft] 100 mg PO DAILY 07/10/17 06/28/18 Budesonide/Formoterol 160/4.5 2 puff IH DAILY 06/28/18 06/28/18 [Symbicort 160/4.5] Clopidogrel [Plavix] 75 mg PO DAILY 06/28/18 06/28/18 Linagliptin [Tradjenta] 5 mg PO DAILY 06/28/18 06/28/18 Loratadine [Claritin] 10 mg PO DAILY 06/28/18 06/28/18 metFORMIN [Glucophage] 500 mg PO BID 06/28/18 06/28/18 Previous Rx's Medication Instructions Recorded Lisinopril [Zestril] 5 mg PO DAILY #30 tablet 06/17/18 Metoprolol [Lopressor] 25 mg PO BID #60 tablet 06/17/18 Allergies Allergy/AdvReac Type Severity Reaction Status Date / Time aspirin Allergy Anaphylaxis Verified 08/22/18 17:09 Bee Pollen Allergy Anaphylaxis Verified 08/22/18 17:09 naproxen [From Aleve] Allergy Anaphylaxis Verified 08/22/18 17:09 spider venom Allergy Swelling Verified 08/22/18 17:09 of Lip/Tongue/Throat All systems ED: reviewed and negative except as stated. Review of Systems: As Per HPI Constitutional: Denies: fever, chills, weakness, weight change Eyes: Denies: eye pain, eye discharge, vision change ENT ED: Denies: ear pain, throat pain, dental pain, hearing loss, epistaxis, congestion, dysphagia Cardiovascular: Denies: chest pain, palpitations, dyspnea on exertion, edema, syncope Respiratory: Reports: as per HPI, cough, dyspnea, sputum production (green). Denies: wheezes, hemoptysis, stridor Gastrointestinal: Denies: abdominal pain, nausea, vomiting, diarrhea, constipation, hematemesis, melena, hematochezia Genitourinary: Denies: urgency, dysuria, frequency, hematuria Musculoskeletal: Denies: back pain, neck pain, arthralgia, myalgia Integumentary: Denies: rash, abrasion, lesions Neurological: Denies: headache, weakness, numbness, paresthesias, confusion, abnormal gait, vertigo Psychiatric: Denies: anxiety, depression, suicidal thoughts, homicidal thoughts, auditory hallucinations, visual hallucinations Endocrine: Denies: fatigue Hematological/Lymphatic: Denies: easy bleeding, easy bruising Allergic/Immunologic: Denies: facial swelling, urticaria Past Medical History - Past Medical History Attestation: Yes The following information was validated with the patient. Source: patient Medical history: Reports: arthritis, asthma, CHF, COPD, coronary artery disease, DVT, diabetes, GERD, hyperlipidemia, hypertension, other Surgical history: Reports: appendectomy, cholecystectomy, pacemaker/AICD, tonsilectomy Psychiatric history: Reports: depression - Social History Smoking Status: Never smoker Smokeless Tobacco Status: No Alcohol use: Reports: none Drug use: Reports: none Physical Exam - General Limitations: no limitations General appearance: alert, in no apparent distress - Head Head exam: atraumatic, normocephalic, normal inspection - Eye Eye exam: Present: normal appearance, PERRL, EOMI - ENT ENT exam: normal exam, normal oropharynx, mucous membranes moist - Neck Neck exam: Present: normal inspection, full ROM, trachea midline - Chest Chest inspection: Present: normal inspection, symmetric chest wall rise - Respiratory Respiratory exam: Present: normal lung sounds bilaterally - Cardiovascular Cardiovascular exam: Present: regular rate, normal rhythm, normal heart sounds, other (Paced) - Abdominal Exam Abdominal exam: Present: soft, Non-Tender. Absent: tenderness, distention, guarding, rebound, rigidity - Extremities Exam Extremities exam: Present: normal inspection, full ROM. Absent: tenderness, pedal edema - Back Exam Back exam: Present: normal inspection, full ROM. Absent: tenderness - Neurological Exam Neurological exam: Present: alert, oriented X3 - Psychiatric Psychiatric exam: Present: normal affect, normal mood - Skin Skin exam: Present: warm, dry, intact, normal color Course Course Narrative: Patient had an echo done approximately 2 months ago that showed an ejection fraction of 55%. He states that he cannot use Lasix at home secondary to acute kidney injury. Patient's kidney function is normal today. He does show signs of pulmonary edema on his chest x-ray. Does have some cardiomegaly as well. We will provide patient with a dose of Lasix while here. He states that he has not been using his CPAP at home secondary to feeling like he is smothering whenever is on. He states that he is has a drowning feeling. He states that there is no fluid in the line. We will admit patient to the hospital for CHF exacerbation. Patient is agreeable with this plan. He again denies any chest pain. He does report the shortness of breath. He has not been on antibiotics recently for pneumonia and does not use steroids secondary to his history of diabetes. - Reevaluation(s) Reevaluation #1: Patient does have history of congestive heart failure. Pulmonary edema on the chest x-ray as well as cardio megaly. We will admit patient to the hospital. He was provided with 40 mg of IV Lasix. Time: 20:59 - Consultations Consultation #1: Dr Montejo accepted Pt in stable condition Time: 21:00 Vital Signs Temperature 97.6 F 08/22/18 17:07 Pulse Rate 89 08/22/18 17:07 Respiratory Rate 16 08/22/18 17:07 Blood Pressure 145/82 08/22/18 17:07 O2 Sat by Pulse Oximetry 99 08/22/18 17:07 Temperature 97.6 F 08/22/18 17:07 Pulse Rate 88 08/22/18 20:43 Respiratory Rate 25 08/22/18 20:43 Blood Pressure 117/75 08/22/18 20:43 O2 Sat by Pulse Oximetry 98 08/22/18 20:43 Oxygen Delivery Oxygen Delivery Nasal Cannula Medical Decision Making - Medical Records Medical records reviewed: Yes I reviewed the patient's medical records. - Lab Data Lab results reviewed: Yes I reviewed the patient's lab results. Result diagrams: 08/22/18 18:11 08/22/18 18:11 Lab Results 08/22/18 08/22/18 08/22/18 Range/Units 18:11 18:11 18:11 WBC 6.3 (4.3-11.1) K/mcL RBC 4.36 (4.19-5.50) M/mcL Hgb 10.7 L (12.9-16.9) g/dL Hct 34.0 L (37.5-50.1) % MCV 78.0 L (83.0-100.0) fL MCH 24.5 L (28.0-33.3) pg MCHC 31.5 L (31.6-35.5) g/dL RDW 14.6 H (11.5-14.5) % Plt Count 197 (140-400) K/mcL MPV 11.6 (9.4-12.4) fL Immature Gran % 0.2 (0-4) % Seg Neutrophils % 59.2 % Lymphocytes % 23.8 % Monocytes % 10.1 % Eosinophils % 6.1 % Basophils % 0.6 % Neutrophils # 3.7 (1.6-8.9) K/mcL Lymphocytes # 1.5 (0.6-4.6) K/mcL Monocytes # 0.6 (0.0-1.3) K/mcL Eosinophils # 0.4 (0.0-0.6) K/mcL Basophils # 0.0 (0.0-0.2) K/mcL Sodium 134 L (136-145) mEq/L Potassium 3.9 (3.5-5.1) mEq/L Chloride 101 (98-107) mEq/L Carbon Dioxide 25 (23-29) mEq/L BUN 18 (6-20) mg/dL Creatinine 0.99 (0.70-1.30) mg/dL Est GFR ( Amer) > 60 (> 60) Est GFR (Non-Af Amer) > 60 (> 60) BUN/Creatinine Ratio 18 (6-26) Glucose 227 H (70-105) mg/dL Calculated Osmolality 287 (280-300) Lactic Acid 1.3 (0.5-2.2) mmol/L Calcium 8.9 (8.6-10.3) mg/dL Troponin I < 0.03 (< 0.04) ng/mL B-Natriuretic Peptide (Less than 100) pg/mL 08/22/18 Range/Units 18:11 WBC (4.3-11.1) K/mcL RBC (4.19-5.50) M/mcL Hgb (12.9-16.9) g/dL Hct (37.5-50.1) % MCV (83.0-100.0) fL MCH (28.0-33.3) pg MCHC (31.6-35.5) g/dL RDW (11.5-14.5) % Plt Count (140-400) K/mcL MPV (9.4-12.4) fL Immature Gran % (0-4) % Seg Neutrophils % % Lymphocytes % % Monocytes % % Eosinophils % % Basophils % % Neutrophils # (1.6-8.9) K/mcL Lymphocytes # (0.6-4.6) K/mcL Monocytes # (0.0-1.3) K/mcL Eosinophils # (0.0-0.6) K/mcL Basophils # (0.0-0.2) K/mcL Sodium (136-145) mEq/L Potassium (3.5-5.1) mEq/L Chloride (98-107) mEq/L Carbon Dioxide (23-29) mEq/L BUN (6-20) mg/dL Creatinine (0.70-1.30) mg/dL Est GFR ( Amer) (> 60) Est GFR (Non-Af Amer) (> 60) BUN/Creatinine Ratio (6-26) Glucose (70-105) mg/dL Calculated Osmolality (280-300) Lactic Acid (0.5-2.2) mmol/L Calcium (8.6-10.3) mg/dL Troponin I (< 0.04) ng/mL B-Natriuretic Peptide 45 (Less than 100) pg/mL - Radiology Data Radiology results reviewed: Yes I reviewed the patient's radiology results. Chest X-Ray 08/22/18 17:45 IMPRESSION: 1. Pulmonary vascular congestion with questionable perihilar edema, potentially congestive heart failure given mild cardiomegaly. 2. Minimal bibasilar atelectasis. D/ / Bandar Jackson MD / Bandar Jackson MD Interpreting Provider: Bandar Jackson MD - EKG Data EKG #1 EKG attestation: Yes I reviewed and interpreted this EKG. EKG results narrative: Ventricularly paced rhythm at a rate 86. NM interval is 62. QRS duration is 1 55. QT is 4:30. QTC is 482. Does not need scarbosa criteria. Same as previous EKG dated 06/28/2018. Attestation Statement - Attestation Attestation: I examined this patient and my medical decision-making was reviewed with the Resident Physician, Dr. Cortes. I agree with the documented findings, disposition and treatment plan as described except to the extent set forth below. Patient is a 58-year-old white male with a history of CHF and COPD who presents seem or permit today with a one-week history of gradually worsening shortness of breath. Patient states his been having occasional cough with some clear sputum no fevers or chills. Patient denies any chest pain pressure or heaviness, no diaphoresis, no posttussive emesis. Patient denies any abdominal pain nausea vomiting no significant lower extremity edema. Patient states is having difficulty lying flat and feels like he is choking. Patient was admitted 5 months ago and had a AV sequential pacer placed for complete heart block. Patient has been doing well since that time and 2 months ago had a stress test and cardiac echo. I agree with patient's physical exam findings as documented. Vital signs are stable patient's having no respiratory distress. Patient with diminished breath sounds throughout. EKG shows a paced rhythm no change from prior EKG. Chest x-ray shows pulmonary edema especially in the perihilar areas bilaterally consistent with CHF. Patient's labs are overall within normal limits negative troponin and BNP is within normal limits, normal renal function. Patient states is not on any diuretics at home due to his kidneys. We will give him a dose here in the emergency department and admit the patient for CHF exacerbation. Case will be discussed with hospitalist.
[2018-08-22 18:19] LABS: Basophils % 0.6 %; Eosinophils # 0.4 K/mcL (0.0-0.6); Eosinophils % 6.1 %; Hemoglobin 10.7 g/dL (12.9-16.9); Immature Granulocytes % 0.2 % (0-4); Lymphocytes # 1.5 K/mcL (0.6-4.6); Lymphocytes % 23.8 %; Mean Corpuscular HGB Conc 31.5 g/dL (31.6-35.5); Mean Corpuscular Hemoglobin 24.5 pg (28.0-33.3); Mean Platelet Volume 11.6 fL (9.4-12.4); Monocytes # 0.6 K/mcL (0.0-1.3); Monocytes % 10.1 %; Neutrophils # 3.7 K/mcL (1.6-8.9); Platelet Count 197 K/mcL (140-400); Red Blood Count 4.36 M/mcL (4.19-5.50); Red Cell Distribution Width 14.6 % (11.5-14.5); Segmented Neutrophils % 59.2 %
[2018-08-22 18:47] LABS: BUN/Creatinine Ratio 18 (6-26); Blood Urea Nitrogen 18 mg/dL (6-20); Calcium 8.9 mg/dL (8.6-10.3); Carbon Dioxide 25 mEq/L (23-29); Chloride 101 mEq/L (98-107); Glucose 227 mg/dL (70-105); Osmolality,Calculated 287 (280-300); Potassium 3.9 mEq/L (3.5-5.1); Sodium 134 mEq/L (136-145); Troponin I < 0.03 ng/mL (< 0.04); eGFR For Non-African Americans > 60 (> 60)
[2018-08-22] MEDS ORDERED: Ipratropium/Albuterol Neb 3 ML IH ONE (19:14)
[2018-08-22] MEDS ORDERED: Furosemide 40 MG/4 ML VIAL IVP ONE (20:26)
[2018-08-22] MEDS ORDERED: Mirtazapine 15 MG TABLET PO PRN (21:54)
[2018-08-22] MEDS ORDERED: Dextrose Gel 15 GM/37.5 ML TUBE PO PRN ×2 (21:55)
[2018-08-22] MEDS ORDERED: Albuterol 2.5 MG/3 ML NEBULIZER IH PRN (21:59)
--- NOTE | 2018-08-22 22:42 | Internal Med History&Physical ---
Date of Encounter: 08/22/18 Time of Encounter: 22:34 Internal Medicine - H&P: HPI Chief complaint: shortness of breath Admitted From: Home Plans for Post Hospital Care: Home History of present illness: Chase Varela is a 58-year-old obese man with a history of obstructive sleep apnea on CPAP, COPD due to industrial exposure, CKD, diastolic heart failure and complete heart block status post PPM recently admitted about 2 months ago for chest pain who presents now complaining of increasing shortness of breath for the past 5 days without associated chest pain. He says he can no longer lay supine while sleeping and has to be propped up otherwise he feels like he is choking. He occasionally sees edema around his ankles. He says he does not use diuretics at home because of his kidney disease but used his inhaler therapy with minimal improvement in symptoms. He denied nausea, vomiting, abdominal pain, fever, chills, rhinorrhea, sore throat or chest pain. He responded adequately to treatment in the ER and is admitted for further observation. Past Med Surg Social Fam HX - Past Medical History Medical history: arthritis, asthma, CHF, COPD, coronary artery disease, DVT, diabetes, GERD, hyperlipidemia, hypertension, other Additional medical history: sleep apnea BIPAP at home. Psychiatric history: depression - Past Surgical History Surgical History: appendectomy, cholecystectomy, pacemaker/AICD, tonsilectomy Additional surgical history: c - Social History Smoking Status: Never smoker Smokeless Tobacco Status: No Alcohol use: none Drug use: none - Family History Mother Adopted: Yes Father Adopted: Yes Internal Medicine - H&P: Meds Albuterol Sulfate [Ventolin Hfa] 2 puff IH Q4H PRN 08/05/15 [History] Cholecalciferol (Vitamin D3) [Vitamin D3] 2,000 unit PO DAILY 08/05/15 [History] EPINEPHrine [Epipen] 0.3 mg IM ONCE PRN 10/01/16 [History] Omeprazole [PriLOSEC] 40 mg PO DAILY 10/01/16 [History] Lovastatin 80 mg PO DAILY 07/10/17 [History] Mirtazapine [Remeron] 15 mg PO HS PRN 07/10/17 [History] Sertraline [Zoloft] 100 mg PO DAILY 07/10/17 [History] Lisinopril [Zestril] 5 mg PO DAILY #30 tablet 06/17/18 [Rx] Metoprolol [Lopressor] 25 mg PO BID #60 tablet 06/17/18 [Rx] Budesonide/Formoterol 160/4.5 [Symbicort 160/4.5] 2 puff IH DAILY 06/28/18 [His tory] Clopidogrel [Plavix] 75 mg PO DAILY 06/28/18 [History] Linagliptin [Tradjenta] 5 mg PO DAILY 06/28/18 [History] Loratadine [Claritin] 10 mg PO DAILY 06/28/18 [History] metFORMIN [Glucophage] 500 mg PO BID 06/28/18 [History] Allergy/AdvReac Type Severity Reaction Status Date / Time aspirin Allergy Anaphylaxis Verified 08/22/18 17:09 Bee Pollen Allergy Anaphylaxis Verified 08/22/18 17:09 naproxen [From Aleve] Allergy Anaphylaxis Verified 08/22/18 17:09 spider venom Allergy Swelling Verified 08/22/18 17:09 of Lip/Tongue/Throat All Systems PM: A 10-system review of systems was performed and is negative for pertinent findings except as documented above in the HPI. - Constitutional Vitals: Temp Pulse Resp BP Pulse Ox 97.5 F L 91 16 134/75 95 08/22/18 21:40 08/22/18 21:40 08/22/18 21:40 08/22/18 21:40 08/22/18 22:06 Exam: Vitals: Reviewed General: Obese white man, lying comfortably in bed in NAD. Skin: Warm and supple. HEENT: Moist mucous membranes. No conjunctivae pallor. Neck: No lymphadenopathy. No JVD. No carotid bruits. No palpable thyroid. Chest: Diminished thoracic expansion. Diminished breath sounds due to adiposity. Heart: Normal S1 & S2; rhythmic. No rubs or murmurs. Abdomen: Obese, soft and non-tender to palpation. No peritoneal reaction. Extremities: No clubbing, cyanosis or edema. No calf tenderness. Normal distal pulses. Neurological: Awake, alert and oriented to person, place and time. No focal deficits. Psych: Affect appropriate. Internal Med - H&P Results - Labs CBC & Chem 7: 08/22/18 18:11 08/22/18 18:11 Labs: Short CBC 08/22/18 Range/Units 18:11 WBC 6.3 (4.3-11.1) K/mcL Hgb 10.7 L (12.9-16.9) g/dL Hct 34.0 L (37.5-50.1) % Plt Count 197 (140-400) K/mcL Neutrophils # 3.7 (1.6-8.9) K/mcL BMP 08/22/18 18:11 Sodium 134 L Potassium 3.9 Chloride 101 Carbon Dioxide 25 BUN 18 Creatinine 0.99 Glucose 227 H Calcium 8.9 Cardiac Enzymes 08/22/18 Range/Units 18:11 Troponin I < 0.03 (< 0.04) ng/mL - Impressions ITS Impressions Chest X-Ray 08/22/18 17:45 IMPRESSION: 1. Pulmonary vascular congestion with questionable perihilar edema, potentially congestive heart failure given mild cardiomegaly. 2. Minimal bibasilar atelectasis. D/ / Bandar Jackson MD / Bandar Jackson MD Interpreting Provider: Bandar Jackson MD - Assessment and plan (1) Dyspnea Current Visit: Yes Status: Acute Assessment and plan: Likely secondary to heart failure given the reduction in exercise tolerance, orthopnea, PND and vascular congestion seen on x-ray. May have an element of COPD as well and therefore both entities will be treated. Duonebs ordered. Start IV furosemide. Bipap at night. Qualifiers: Dyspnea type: dyspnea on exertion Qualified Code(s): R06.09 - Other forms of dyspnea (2) Complete heart block Current Visit: Yes Status: Acute Assessment and plan: Pacemaker in situ. (3) Mild CAD Current Visit: Yes Status: Acute Assessment and plan: On clopidogrel and statin. No signs of acute ischemic disease. (4) CHF (congestive heart failure) Current Visit: Yes Status: Chronic Assessment and plan: Management as indicated above. Qualifiers: Heart failure type: diastolic Heart failure chronicity: chronic Qualified Code(s): I50.32 - Chronic diastolic (congestive) heart failure (5) COPD (chronic obstructive pulmonary disease) Current Visit: Yes Status: Chronic Assessment and plan: Treatment as indicated above. Qualifiers: COPD type: unspecified COPD Qualified Code(s): J44.9 - Chronic obstructive pulmonary disease, unspecified (6) CKD stage 3 secondary to diabetes Current Visit: Yes Status: Chronic Assessment and plan: Stable. Will follow GFR closely while on diuretic. (7) Diabetes Current Visit: Yes Status: Chronic Assessment and plan: Will place on insulin sliding scale for now. Qualifiers: Diabetes mellitus type: type 2 Diabetes mellitus [facility] [place] insulin use: without [facility] use Diabetes mellitus complication status: with unspecified complications Qualified Code(s): E11.8 - Type 2 diabetes mellitus with unspecified complications (8) HLD (hyperlipidemia) Current Visit: Yes Status: Chronic Assessment and plan: Continue statin therapy. Qualifiers: Hyperlipidemia type: unspecified Qualified Code(s): E78.5 - Hyperlipidemia, unspecified (9) HTN (hypertension) Current Visit: Yes Status: Chronic Assessment and plan: Controlled. Resume home meds. Qualifiers: Hypertension type: essential hypertension Qualified Code(s): I10 - Essential (primary) hypertension (10) Obstructive sleep apnea Current Visit: Yes Status: Chronic Assessment and plan: On NIPPV at night. Weight loss advised. (11) Morbid obesity with BMI of 40.0-44.9, adult Current Visit: Yes Status: Acute Assessment and plan: Weight loss advised. (12) DVT prophylaxis Current Visit: Yes Status: Acute Assessment and plan: SubQ heparin (13) GERD (gastroesophageal reflux disease) Current Visit: Yes Status: Acute Assessment and plan: On PPI. Qualifiers: Esophagitis presence: esophagitis presence not specified Qualified Code(s): K21.9 - Gastro-esophageal reflux disease without esophagitis - Time Spent With Patient Total time spent is greater than 50% in coordination of care (as documented) at patient's floor/unit and/or counseling patient: Greater than 35 minutes
[2018-08-22] MEDS: *HR* Heparin 5,000 UNIT/ML VIAL SQ SCH (23:15)
[2018-08-22] MEDS: Ipratropium/Albuterol Neb 3 ML IH SCH (23:59)
[2018-08-23] MEDS: Ipratropium/Albuterol Neb 3 ML IH SCH ×2 (04:28→08:05)
[2018-08-23] MEDS: *HR* Heparin 5,000 UNIT/ML VIAL SQ SCH ×3 (05:52→20:59)
[2018-08-23] MEDS: Budesonide/Formoterol 160/4.5 1 PUFF INH IH SCH (08:05)
[2018-08-23] MEDS: Cholecalciferol (D-3) 1,000 UNIT TABLET PO SCH (09:13)
[2018-08-23] MEDS: Loratadine 10 MG TABLET PO SCH (09:13)
[2018-08-23] MEDS: Furosemide 40 MG/4 ML VIAL IVP SCH (09:14)
[2018-08-23] MEDS: Insulin LISPRO 300 UNITS/3 ML VIAL SQ SCH ×3 (09:14→18:27)
--- NOTE | 2018-08-23 09:47 | Internal Med Progress Note ---
Hospitalist Progress Note - Encounter Date of Encounter: 08/23/18 Time of Encounter: 09:43 - Subjective Interval History: Mr. Varela is a 58-year-old male who was admitted for increased dyspnea shortness of breath with congestive heart failure, COPD exacerbation. He states that over the past 5 days he has had increasing dyspnea to the point where he cannot lay flat and having to sit upright in chair. He is positive for chronic congestive heart failure of complete heart block with pace maker placement 5 months ago, type 2 diabetes, chronic kidney disease stage III, obstructive sleep apnea with C-PAP. Hypertension and hyper-lipidemia. Today patient is interviewed at bedside having a chief complaint of left chest pain, with increased shortness of breath. States that it is an acute onset for the past approximate 15 minutes, constant, nonradiating, He rated the pain as a sharp,Squeezing pressure pain. Rated the pain as a #8 on a scale of 10 with 10 being the most severe. Stated that he did notify nursing staff and was placed on oxygen, and during interview with the bedside he states that his pain had reduced to approximately #2 on a pain scale of 10, however he is continuing to have the sharp chest pain. Review of telemetry is showing that he is having a paced rhythm with some wide QRS complexes. On going to obtain a stat EKG, start him on nitroglycerin 0.4 mg sublingual every 5 [address] a cardiology consult. Will continue with telemetry vital signs and close monitoring. Will obtain echo cardiogram, CT of chest, and start him on Levaquin, IV daily, we will trend troponins 3. Chest x-ray was reviewed and shows minimal bibasilar atelectasis, consistent with congestive heart failure, Stat EKG was obtained and shows abnormal rhythm with ventricular pace maker, ventricular rate is 80 bpm, wide QRS complexes are noted, when compared with previous EKG of 08/22, no acute changes are noted. - Exam Vitals: Temp Pulse Resp BP Pulse Ox 97.6 F 91 18 101/65 96 08/23/18 07:33 08/23/18 07:33 08/23/18 08:07 08/23/18 07:33 08/23/18 08:07 Exam: stable - Assessment and Plan (1) CHF (congestive heart failure) Current Visit: Yes Status: Chronic Assessment and Plan: Current dyspnea with associated mid sternal chest pain, placed on oxygen at 2 LPM/NC Will continue to moinitor pulse ox, vital signs, and telemetery Will continue with HHN, symbicort, and lasix IVP (2) Diabetes Current Visit: Yes Status: Chronic Assessment and Plan: Fasting glucose 227 Will continue with monitoring Will continue with bolus/basil insulin will obtain HGB A!C, CMP, CBC with dif, (3) Obstructive sleep apnea Current Visit: Yes Status: Chronic Assessment and Plan: Continue with bi-pap (4) HTN (hypertension) Current Visit: Yes Status: Chronic Assessment and Plan: Will continue with Beta mir (5) HLD (hyperlipidemia) Current Visit: Yes Status: Chronic Assessment and Plan: Will check FLP and contiinue with statin (6) COPD (chronic obstructive pulmonary disease) Current Visit: Yes Status: Chronic Assessment and Plan: Placed in oxygen @ 2LPM/NC, Patient requesting to no be placed on steroids unless is "absolutely necessary d/t diabetes" Chest x-ray 1. Pulmonary vascular congestion with questionable perihilar edema, potentially congestive heart failure given mild cardiomegaly. 2. Minimal bibasilar atelectasis. Will start on Levaquin 750 mg IV daily Maintain oxygen and q4h vs Obtain CT of chest (7) CKD stage 3 secondary to diabetes Current Visit: Yes Status: Chronic Assessment and Plan: Stable. Will follow GFR closely while on diuretic. (8) Complete heart block Current Visit: Yes Status: Acute Assessment and Plan: Will continue with telemetry, cardiology consult Echo stat EKG, reviewed see report (9) Mild CAD Current Visit: Yes Status: Acute Assessment and Plan: will check FLP (10) GERD (gastroesophageal reflux disease) Current Visit: Yes Status: Acute Assessment and Plan: On PPI. (11) Dyspnea Current Visit: Yes Status: Acute Assessment and Plan: Likely secondary to heart failure given the reduction in exercise tolerance, orthopnea, PND and vascular congestion seen on x-ray. May have an element of COPD as well and therefore both entities will be treated. Duonebs ordered. Start IV furosemide. Bipap at night. (12) Morbid obesity with BMI of 40.0-44.9, adult Current Visit: Yes Status: Acute Assessment and Plan: Weight loss advised. (13) DVT prophylaxis Current Visit: Yes Status: Acute Assessment and Plan: will continue with heparin sq, up adlib - Time Spent with Patient Total time spent is greater than 50% in coordination of care (as documented) at patient's floor/unit and/or counseling patient: 25 - 35 minutes Plan of Care Discussed with: patient Internal Medicine: Result - Labs CBC & Chem 7: 08/22/18 18:11 08/22/18 18:11 Labs: Short CBC 08/22/18 Range/Units 18:11 WBC 6.3 (4.3-11.1) K/mcL Hgb 10.7 L (12.9-16.9) g/dL Hct 34.0 L (37.5-50.1) % Plt Count 197 (140-400) K/mcL Neutrophils # 3.7 (1.6-8.9) K/mcL BMP 08/22/18 18:11 Sodium 134 L Potassium 3.9 Chloride 101 Carbon Dioxide 25 BUN 18 Creatinine 0.99 Glucose 227 H Calcium 8.9 Cardiac Enzymes 08/22/18 Range/Units 18:11 Troponin I < 0.03 (< 0.04) ng/mL - EKG Interpretation EKG Interpreted by Myself: Yes (wide QRS complex, with paced rythem vent rate 80, no changes when compared) Rate: normal - Prior EKG Data Prior EKG available for review: yes When compared to previous EKG: there are significant changes - Impressions Impressions Chest X-Ray 08/22/18 17:45 IMPRESSION: 1. Pulmonary vascular congestion with questionable perihilar edema, potentially congestive heart failure given mild cardiomegaly. 2. Minimal bibasilar atelectasis. 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 use: without alf use Diabetes mellitus complication status: with unspecified complications Qualified Code(s): E11.8 - Type 2 diabetes mellitus with unspecified complications (4) HTN (hypertension) Qualifiers: Hypertension type: essential hypertension Qualified Code(s): I10 - Essential (primary) hypertension (5) HLD (hyperlipidemia) Qualifiers: Hyperlipidemia type: unspecified Qualified Code(s): E78.5 - Hyperlipidemia, unspecified (6) COPD (chronic obstructive pulmonary disease) Qualifiers: COPD type: COPD with acute exacerbation Qualified Code(s): J44.1 - Chronic obstructive pulmonary disease with (acute) exacerbation (10) GERD (gastroesophageal reflux disease) Qualifiers: Esophagitis presence: esophagitis presence not specified Qualified Code(s): K21.9 - Gastro-esophageal reflux disease without esophagitis (11) Dyspnea Qualifiers: Dyspnea type: dyspnea on exertion Qualified Code(s): R06.09 - Other forms of dyspnea
[2018-08-23] MEDS ORDERED: Nitroglycerin 0.4 MG TAB.SUBL SL PRN (10:16)
[2018-08-23 10:43] LABS: Basophils % 0.6 %; Eosinophils # 0.2 K/mcL (0.0-0.6); Eosinophils % 3.1 %; Hematocrit 35.8 % (37.5-50.1); Hemoglobin 11.4 g/dL (12.9-16.9); Immature Granulocytes % 0.3 % (0-4); Lymphocytes # 1.1 K/mcL (0.6-4.6); Lymphocytes % 16.8 %; Mean Corpuscular HGB Conc 31.8 g/dL (31.6-35.5); Mean Corpuscular Hemoglobin 24.6 pg (28.0-33.3); Mean Corpuscular Volume 77.3 fL (83.0-100.0); Mean Platelet Volume 10.7 fL (9.4-12.4); Monocytes # 0.6 K/mcL (0.0-1.3); Monocytes % 8.7 %; Neutrophils # 4.7 K/mcL (1.6-8.9); Platelet Count 215 K/mcL (140-400); Red Blood Count 4.63 M/mcL (4.19-5.50); Red Cell Distribution Width 14.6 % (11.5-14.5); Segmented Neutrophils % 70.5 %
[2018-08-23] MEDS ORDERED: Levofloxacin 750 MG/150 ML 750 MG/150 ML BAG IVPB SCH ×2 (10:45→11:15)
[2018-08-23 11:00] LABS: Alanine Aminotransferase 23 Units/L (7-52); Albumin 4.1 g/dL (3.5-5.7); Albumin/Globulin Ratio 1.3 (1.1-2.2); Alkaline Phosphatase 65 Units/L (34-104); Aspartate Amino Transferase 39 Units/L (13-39); BUN/Creatinine Ratio 16 (6-26); Bilirubin,Total 0.5 mg/dL (0.3-1.0); Blood Urea Nitrogen 19 mg/dL (6-20); Calcium 9.1 mg/dL (8.6-10.3); Carbon Dioxide 29 mEq/L (23-29); Chloride 95 mEq/L (98-107); Globulin 3.2 g/dL (2.4-3.5); Glucose 205 mg/dL (70-105); Osmolality,Calculated 286 (280-300); Potassium 3.8 mEq/L (3.5-5.1); Sodium 134 mEq/L (136-145); Total Protein 7.3 g/dL (6.4-8.9); eGFR For Non-African Americans > 60 (> 60)
[2018-08-23 11:23] LABS: Troponin I < 0.03 ng/mL (< 0.04)
[2018-08-23] MEDS ORDERED: Insulin LISPRO 300 UNITS/3 ML VIAL SQ SCH (21:00)
[2018-08-24 03:44] LABS: Chol/HDL Ratio 4.1 (0-4.9)
[2018-08-24] MEDS: *HR* Heparin 5,000 UNIT/ML VIAL SQ SCH ×2 (05:48→15:28)
[2018-08-24] MEDS: Cholecalciferol (D-3) 1,000 UNIT TABLET PO SCH (07:48)
[2018-08-24] MEDS: Loratadine 10 MG TABLET PO SCH (07:48)
[2018-08-24] MEDS: Furosemide 40 MG/4 ML VIAL IVP SCH (07:49)
[2018-08-24] MEDS: Budesonide/Formoterol 160/4.5 1 PUFF INH IH SCH (07:49)
[2018-08-24] MEDS: Insulin LISPRO 300 UNITS/3 ML VIAL SQ SCH ×3 (07:49→17:00)
[2018-08-24 09:24] LABS: Estimated Average Glucose 192 mg/dl; Hemoglobin A1C 8.3 %
[2018-08-24] MEDS ORDERED: Perflutren Lipid Microsphere 1.3 ML in 0.9 % Sodium Chloride 8.7 ML IVP ONE (09:52)
[2018-08-24 09:54] LABS: Basophils # 0.1 K/mcL (0.0-0.2); Basophils % 1.1 %; Eosinophils # 0.3 K/mcL (0.0-0.6); Eosinophils % 3.8 %; Hematocrit 39.4 % (37.5-50.1); Hemoglobin 12.3 g/dL (12.9-16.9); Immature Granulocytes % 0.4 % (0-4); Lymphocytes # 1.6 K/mcL (0.6-4.6); Lymphocytes % 19.8 %; Mean Corpuscular HGB Conc 31.2 g/dL (31.6-35.5); Mean Corpuscular Hemoglobin 24.6 pg (28.0-33.3); Mean Corpuscular Volume 78.6 fL (83.0-100.0); Mean Platelet Volume 11.3 fL (9.4-12.4); Monocytes # 0.6 K/mcL (0.0-1.3); Monocytes % 8.1 %; Neutrophils # 5.3 K/mcL (1.6-8.9); Platelet Count 285 K/mcL (140-400); Red Blood Count 5.01 M/mcL (4.19-5.50); Red Cell Distribution Width 14.7 % (11.5-14.5); Segmented Neutrophils % 66.8 %
[2018-08-24 11:27] LABS: BUN/Creatinine Ratio 19 (6-26); Blood Urea Nitrogen 24 mg/dL (6-20); Calcium 8.9 mg/dL (8.6-10.3); Carbon Dioxide 25 mEq/L (23-29); Chloride 95 mEq/L (98-107); Glucose 225 mg/dL (70-105); Osmolality,Calculated 281 (280-300); Potassium 3.9 mEq/L (3.5-5.1); Sodium 130 mEq/L (136-145); eGFR For Non-African Americans 60 (> 60)
--- NOTE | 2018-08-24 13:24 | Cardiology Consult Note ---
<Dean Mckenna - Last Filed: 08/24/18 13:41> Date of Encounter: 08/24/18 Time of Encounter: 13:22 Assessment and Plan (1) CHF (congestive heart failure) Current Visit: Yes Status: Chronic 58 YO M with SOB and history of diastolic heart failure. - Recommend patient restart lasix at home. - Spoke with patient about the importance of lifestyle changes for diastolic heart failure including low sodium diet - Asked patient to use CPAP machine. Reports he is not using it because it doesn't fit. Asked to follow up with sleep specialist. Qualifiers: Heart failure type: diastolic Heart failure chronicity: acute on chronic Qualified Code(s): I50.33 - Acute on chronic diastolic (congestive) heart failure (2) HTN (hypertension) Current Visit: Yes Status: Chronic Patient's blood pressure is currently controlled on lasix 40 D and metoprolol tartrate 25 PO BID. Continue current regimen. Qualifiers: Hypertension type: essential hypertension Qualified Code(s): I10 - Essential (primary) hypertension (3) S/P cardiac pacemaker procedure Current Visit: No Status: Acute Patient is in sinus rhythm - no intervention indicated at this time. (4) CAD (coronary artery disease) Current Visit: No Status: Chronic No idnications for STEMI at this time. Has negative trops x 4 and no CP at this visit. Qualifiers: Coronary Disease-Associated Artery/Lesion type: [place] artery [place] vs. transplanted heart: [place] heart Associated angina: without angina Qualified Code(s): I25.10 - Atherosclerotic heart disease of [place] coronary artery without angina pectoris Discussion w patient/family: The assessment and plan as outlined above was discussed with the patient and/or family members who expressed understanding and agreement. All questions were answered. Thank you for involving us in the care of your patient. Please call with any questions. History of Present Illness Consult reason: SOB with history of complete heart lvock History of present illness: Mr. Varela is a 58 year old consoulted for SOB with history of complete heart block. He has a history of diastolic heart failure with hear block, CKD, COPD, DOROTHY on CPAP. At this visit he has 4 negative trops, and negative BNP of 42 and 28. He is currently on lipitor 20 QD, lasix 40 QD, plavix 75 QD, hpaerin drip, metoprolol tartrate 25 PO BID, and nitro PRN. He currently denies CP or paliptations. He says he is having SOB with exertion and at baseline. States he does not monitor his salt intake at home and eats junk food. He also states he is not using his CPAP because he cannot breath with it on. Patient states he has not been ambulating and is on oxygen right now. Past Med Surg Social Fam HX - Past Medical History Medical history: arthritis, asthma, CHF, COPD, coronary artery disease, DVT, diabetes, GERD, hyperlipidemia, hypertension, other Additional medical history: sleep apnea BIPAP at home. Psychiatric history: depression - Past Surgical History Surgical History: appendectomy, cholecystectomy, pacemaker/AICD, tonsilectomy Additional surgical history: lhc - Social History Smoking Status: Never smoker Smokeless Tobacco Status: No Alcohol use: none Drug use: none - Family History Mother Adopted: Yes Father Adopted: Yes Medications and Allergies Albuterol Sulfate [Ventolin Hfa] 2 puff IH Q4H PRN 08/05/15 [History] Cholecalciferol (Vitamin D3) [Vitamin D3] 2,000 unit PO DAILY 08/05/15 [History] Omeprazole [PriLOSEC] 40 mg PO DAILY 10/01/16 [History] Lovastatin 80 mg PO DAILY 07/10/17 [History] Mirtazapine [Remeron] 15 mg PO HS PRN 07/10/17 [History] Sertraline [Zoloft] 100 mg PO DAILY 07/10/17 [History] Lisinopril [Zestril] 5 mg PO DAILY #30 tablet 06/17/18 [Rx] Metoprolol [Lopressor] 25 mg PO BID #60 tablet 06/17/18 [Rx] Budesonide/Formoterol 160/4.5 [Symbicort 160/4.5] 2 puff IH DAILY 06/28/18 [History] Clopidogrel [Plavix] 75 mg PO DAILY 06/28/18 [History] Linagliptin [Tradjenta] 5 mg PO DAILY 06/28/18 [History] Loratadine [Claritin] 10 mg PO DAILY 06/28/18 [History] metFORMIN [Glucophage] 500 mg PO BID 06/28/18 [History] Allergy/AdvReac Type Severity Reaction Status Date / Time aspirin Allergy Anaphylaxis Verified 08/22/18 17:09 Bee Pollen Allergy Anaphylaxis Verified 08/22/18 17:09 naproxen [From Aleve] Allergy Anaphylaxis Verified 08/22/18 17:09 spider venom Allergy Swelling Verified 08/22/18 17:09 of Lip/Tongue/Throat All Systems Review: The remainder of the systems were reviewed and are negative - Constitutional Constitutional: fatigue, no fever(s), no frequent falls, no headache(s), no night sweats - Cardiovascular Cardiovascular: as per HPI - Respiratory Respiratory: dyspnea - Gastrointestinal Gastrointestinal: no abdominal pain Physical Examination Vital Signs, Last 4 Hours Temp Pulse Resp BP Pulse Ox 08/24/18 11:25 97.3 F L 77 20 111/68 98 General: Conversant, No Apparent Distress HEENT: Atraumatic, Normocephaly Neck: No JVD, Normal carotid pulses Cardiac: Reg Rate and Rhythm, Normal S1 and S2, No Murmur Lungs: Other (increasing work of breathing, wheezes) Neuro: Alert and responsive, No focal deficits noted Abdomen: Soft, Non-Tender Skin: No rashes noted on visualized skin Musculoskeletal: No Chest Wall Tenderness Extremities: No Clubbing, No Cyanosis, Normal Pulses, Other (mild b/l LE edema) Results 08/24/18 09:17 08/24/18 09:17 Lab Results 08/23/18 08/24/18 08/24/18 16:32 03:05 09:17 WBC 7.9 Hgb 12.3 L Hct 39.4 Plt Count 285 Sodium Potassium Chloride Carbon Dioxide BUN Creatinine Glucose Calcium Troponin I < 0.03 < 0.03 08/24/18 09:17 WBC Hgb Hct Plt Count Sodium 130 L Potassium 3.9 Chloride 95 L Carbon Dioxide 25 BUN 24 H Creatinine 1.24 Glucose 225 H Calcium 8.9 Troponin I - EKG Interpretation EKG results cardiology: personally reviewed, no diagnostic ischemia Consult Discharge Plan - Plan Referrals: Lenka Singh MD [Primary Care Provider] - < A - Last Filed: 08/24/18 16:11> Date of Encounter: 08/24/18 - Attending Attestation I have personally performed a face to face evaluation on this patient. I have reviewed and agree with the documented findings and care plan as documented by the resident. History and Exam by me shows: 58-year-old male with admitted for acute diastolic CHF exacerbation secondary to dietary indiscretion. He also states that he was taking off is diuretics daily as an outpatient. He has been adequately diuresed with IV Lasix. On examination he was laying flat in bed and not requiring oxygen on ambulation. He was counseled on low-salt diet, fluid restriction and medication adherence. Please discharge him on oral Lasix 40 mg daily. He needs adequate follow-up with PCP. Thanks, Tito Lee MD Assessment and Plan Discussion w patient/family: The assessment and plan as outlined above was discussed with the patient and/or family members who expressed understanding and agreement. All questions were answered. Thank you for involving us in the care of your patient. Please call wi th any questions. History of Present Illness History of present illness: Mr. Varela is a 58 year old male All Systems Review: The remainder of the systems were reviewed and are negative Physical Examination Vital Signs, Last 4 Hours Temp Pulse Resp BP Pulse Ox 08/24/18 15:17 97.5 F L 87 20 110/69 97 Results 08/24/18 09:17 08/24/18 09:17 Lab Results 08/23/18 08/24/18 08/24/18 16:32 03:05 09:17 WBC 7.9 Hgb 12.3 L Hct 39.4 Plt Count 285 Sodium Potassium Chloride Carbon Dioxide BUN Creatinine Glucose Calcium Troponin I < 0.03 < 0.03 08/24/18 09:17 WBC Hgb Hct Plt Count Sodium 130 L Potassium 3.9 Chloride 95 L Carbon Dioxide 25 BUN 24 H Creatinine 1.24 Glucose 225 H Calcium 8.9 Troponin I
[2018-08-24 15:19] VITALS: BP 110/69
[2018-08-24 18:27] LABS: BUN/Creatinine Ratio 23 (6-26); Blood Urea Nitrogen 28 mg/dL (6-20); Calcium 9.3 mg/dL (8.6-10.3); Carbon Dioxide 27 mEq/L (23-29); Chloride 97 mEq/L (98-107); Glucose 148 mg/dL (70-105); Osmolality,Calculated 286 (280-300); Sodium 134 mEq/L (136-145); eGFR For Non-African Americans > 60 (> 60)
--- NOTE | 2018-08-24 18:33 | Discharge Summary ---
- NOTES TO OUTPATIENT PROVIDER Notes to Outpatient Provider: Presented with shortness of breath patient has history diastolic heart failure-seen by cardiology recommending resuming Lasix at home monitoring daily weights resuming use of CPAP machine follow-up sleep specialty Date of Encounter: 08/24/18 Time of Encounter: 18:31 - Discharge Diagnosis (1) Obstructive sleep apnea Priority: Secondary Status: Chronic (2) Diabetes Priority: Secondary Status: Chronic Qualifiers: Diabetes mellitus type: type 2 Diabetes mellitus penitentiary insulin use: without penitentiary use Diabetes mellitus complication status: with unspecified complications Qualified Code(s): E11.8 - Type 2 diabetes mellitus with unspecified complications (3) HTN (hypertension) Priority: Secondary Status: Chronic Qualifiers: Hypertension type: essential hypertension Qualified Code(s): I10 - Essential (primary) hypertension (4) HLD (hyperlipidemia) Priority: Secondary Status: Chronic Qualifiers: Hyperlipidemia type: unspecified Qualified Code(s): E78.5 - Hyperlipidemia, unspecified (5) COPD (chronic obstructive pulmonary disease) Priority: Secondary Status: Chronic Qualifiers: COPD type: COPD with acute exacerbation Qualified Code(s): J44.1 - Chronic obstructive pulmonary disease with (acute) exacerbation (6) CKD stage 3 secondary to diabetes Priority: Secondary Status: Chronic (7) Complete heart block Priority: Secondary Status: Resolved (8) Mild CAD Priority: Secondary Status: Acute (9) GERD (gastroesophageal reflux disease) Priority: Secondary Status: Acute Qualifiers: Esophagitis presence: esophagitis presence not specified Qualified Code(s): K21.9 - Gastro-esophageal reflux disease without esophagitis (10) Dyspnea Priority: Secondary Status: Acute Qualifiers: Dyspnea type: dyspnea on exertion Qualified Code(s): R06.09 - Other forms of dyspnea (11) Morbid obesity with BMI of 40.0-44.9, adult Priority: Secondary Status: Acute (12) CHF (congestive heart failure) Priority: Primary Status: Chronic Qualifiers: Heart failure type: diastolic Heart failure chronicity: acute on chronic Qualified Code(s): I50.33 - Acute on chronic diastolic (congestive) heart failure Hospital course: Mr. Varela is a 58 year old male past medical history of arthritis asthma COPD diastolic CHF-complete heart block with pacemaker placement coronary artery disease DVT diabetes GERD hyperlipidemia hypertension DOROTHY on CPAP presented to [facility] ED with complaints of shortness of breath-And orthopnea. Chest x-ray did show pulmonary vascular congestion patient was diuresed with IV Lasix initiated on BiPAP at night her patient was unable to tolerate BiPAP cardiology was consulted troponins were negative 3 BNP patient does admit to noncompliance to diet echo was completed which showed EF of 60-65% mild diastolic dysfunction. Cardiology recommending resuming home Lasix as well as CPAP at night and follow up with sleep specialist. Patient has been ambulating in hallways without any shortness breath or chest pain appears to be at his respiratory baseline vital signs are stable lab work is unremarkable I did provide patient with a prescri ption for Lasix and advised him to follow-up with his primary care provider since this provide knows him best and can adjust medications accordingly Discharge discussed with: patient - Time Spent with Patient Total time spent providing and/or coordinating discharge services: - Discharge Medications Prescriptions: Furosemide [Lasix] 40 mg PO DAILY #60 tab Home Medications: Albuterol Sulfate [Ventolin Hfa] 2 puff IH Q4H PRN 08/05/15 [History] Cholecalciferol (Vitamin D3) [Vitamin D3] 2,000 unit PO DAILY 08/05/15 [History] Omeprazole [PriLOSEC] 40 mg PO DAILY 10/01/16 [History] Lovastatin 80 mg PO DAILY 07/10/17 [History] Mirtazapine [Remeron] 15 mg PO HS PRN 07/10/17 [History] Sertraline [Zoloft] 100 mg PO DAILY 07/10/17 [History] Lisinopril [Zestril] 5 mg PO DAILY #30 tablet 06/17/18 [Rx] Metoprolol [Lopressor] 25 mg PO BID #60 tablet 06/17/18 [Rx] Budesonide/Formoterol 160/4.5 [Symbicort 160/4.5] 2 puff IH DAILY 06/28/18 [History] Clopidogrel [Plavix] 75 mg PO DAILY 06/28/18 [History] Linagliptin [Tradjenta] 5 mg PO DAILY 06/28/18 [History] Loratadine [Claritin] 10 mg PO DAILY 06/28/18 [History] metFORMIN [Glucophage] 500 mg PO BID 06/28/18 [History] Furosemide [Lasix] 40 mg PO DAILY #60 tab 08/24/18 [Rx] Allergies/Adverse Reactions: Allergy/AdvReac Type Severity Reaction Status Date / Time aspirin Allergy Anaphylaxis Verified 08/22/18 17:09 Bee Pollen Allergy Anaphylaxis Verified 08/22/18 17:09 naproxen [From Aleve] Allergy Anaphylaxis Verified 08/22/18 17:09 spider venom Allergy Swelling Verified 08/22/18 17:09 of Lip/Tongue/Throat Date of admission: 08/22/18 21:38 Primary care physician: Lenka Singh Consults: 08/23/18 10:43 Consult to Cardiology [CONS] Routine Comment: Consulting Provider: Cardiology Khadra Reason for Consult: chest pain , hx of complete block with PPM 5 months ago, Time Notified: 10:44 Call Completed: No Discharging clinician: Milagro Antunez Anticipated date of discharge: 08/24/18 - Constitutional Vitals: Temp Pulse Resp BP Pulse Ox 97.5 F L 87 20 110/69 97 08/24/18 15:17 08/24/18 15:17 08/24/18 15:17 08/24/18 15:17 08/24/18 15:17 General appearance: Present: A&O X 3 Exam: . - Head Head exam: Present: atraumatic, normocephalic - Eye Eye exam: Present: PERRL, conjuntiva pink, sclera anicteric Pupils: Present: PERRL - Neck Neck exam general surgery: Present: supple, trachea midline. Absent: lymphadenopathy - Respiratory Respiratory exam: Present: CTAB. Absent: accessory muscle use, rales, rhonchi, wheezes - Cardiovascular Cardiovascular exam: Present: RRR, +S1, +S2. Absent: diastolic murmur, gallop, rubs, systolic murmur - GI/Abdominal GI/Abdominal exam: Present: normal bowel sounds, soft, no peritoneal signs. Absent: distended, tenderness - Extremities Exam Extremities exam: Present: warm, radial pulses palpable and symmetrical. Absent: calf tenderness, cyanotic, pedal edema - Neurological Exam Neurological exam: Present: CN II-XII intact, oriented X3, no focal deficits. Absent: pronater drift, facial droop, speech deficit - Skin Skin exam: Present: dry, intact - Patient Status Disposition: Home, Self-Care Condition: Good Functional capacity at discharge: independent ambulation Overall status at discharge: patient is back to baseline - Discharge Instructions Follow Up With: Lenka Singh MD [Primary Care Provider] - - Diet and Activity Activity: increase activity as tolerated Diet: low fat, low cholesterol, low salt diet
[2018-08-25] MEDS ORDERED: Azithromycin 250 MG TABLET PO SCH (09:00)
--- NOTE | 2018-08-25 19:13 | Electrocardiograph Report ---
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
--- NOTE | 2018-08-25 19:55 | Electrocardiograph Report ---
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
== END 2018-08-24 19:34 | disposition home or self-care (01) ==
LOC: EMEROOARM 17:02 → 3BNU 17:02
PROVIDERS: ADMIT Internal Medicine; ATTEND Internal Medicine

== ENCOUNTER 2020-07-30 18:34 | Inpatient (IN) ==
[2020-07-30 19:37] LABS: Eosinophils # 0.2 K/mcL (0.0-0.6); Eosinophils % 3.2 %; Hematocrit 35.2 % (37.5-50.1); Hemoglobin 10.5 g/dL (12.9-16.9); Immature Granulocytes % 0.3 % (0-4); Lymphocytes # 1.8 K/mcL (0.6-4.6); Lymphocytes % 30.6 %; Mean Corpuscular HGB Conc 29.8 g/dL (31.6-35.5); Mean Corpuscular Hemoglobin 23.2 pg (28.0-33.3); Mean Corpuscular Volume 77.7 fL (83.0-100.0); Mean Platelet Volume 10.7 fL (9.4-12.4); Monocytes # 0.7 K/mcL (0.0-1.3); Monocytes % 11.6 %; Neutrophils # 3.2 K/mcL (1.6-8.9); Platelet Count 212 K/mcL (140-400); Red Blood Count 4.53 M/mcL (4.19-5.50); Red Cell Distribution Width 15.9 % (11.5-14.5); Segmented Neutrophils % 54.3 %; White Blood Count 5.9 K/mcL (4.3-11.1)
[2020-07-30 19:47] LABS: INR 1.2; Prothrombin Time 14.3 Seconds (9.4-12.1)
[2020-07-30 19:49] LABS: Activated Partial Thrombo Time 36.9 Seconds (26.0-36.0)
[2020-07-30 20:01] LABS: BUN/Creatinine Ratio 15 (6-26); Blood Urea Nitrogen 18 mg/dL (8-23); Calcium 8.8 mg/dL (8.6-10.3); Carbon Dioxide 27 mEq/L (23-29); Chloride 105 mEq/L (98-107); Glucose 114 mg/dL (70-105); Osmolality,Calculated 287 (280-300); Potassium 3.9 mEq/L (3.5-5.1); Sodium 137 mEq/L (136-145); eGFR For African Americans > 60 (> 60); eGFR For Non-African Americans > 60 (> 60)
[2020-07-30 20:02] LABS: Troponin I < 0.03 ng/mL (< 0.04)
[2020-07-30] MEDS ORDERED: Isovue-370 500 ML BOTTLE IVP ONE (20:08)
[2020-07-30] MEDS: Nitroglycerin 0.4 MG TAB.SUBL SL PRN ×2 (21:55→22:00)
[2020-07-30] MEDS ORDERED: Naloxone 0.4 MG/ML INJ IVP PRN (23:47)
[2020-07-31] MEDS ORDERED: D5% in Water 1,000 ML IVC PRN (05:12)
[2020-07-31] MEDS ORDERED: Dextrose Gel 15 GM/37.5 ML TUBE PO PRN ×2 (05:12)
[2020-07-31] MEDS ORDERED: *HR* Dextrose 50 % in Water (Vial) 50 ML VIAL IVP PRN (05:12)
[2020-07-31] MEDS ORDERED: Perflutren Lipid Microsphere 1.3 ML in 0.9 % Sodium Chloride 8.7 ML IVP PRN (05:13)
[2020-07-31] MEDS: Insulin LISPRO 300 UNITS/3 ML VIAL SQ SCH ×3 (06:07→18:31)
[2020-07-31 06:14] LABS: Hematocrit 35.7 % (37.5-50.1); Hemoglobin 10.5 g/dL (12.9-16.9); Mean Corpuscular HGB Conc 29.4 g/dL (31.6-35.5); Mean Corpuscular Volume 78.3 fL (83.0-100.0); Mean Platelet Volume 10.7 fL (9.4-12.4); Platelet Count 215 K/mcL (140-400); Red Blood Count 4.56 M/mcL (4.19-5.50); Red Cell Distribution Width 15.9 % (11.5-14.5); White Blood Count 6.2 K/mcL (4.3-11.1)
[2020-07-31 06:33] LABS: BUN/Creatinine Ratio 15 (6-26); Blood Urea Nitrogen 18 mg/dL (8-23); Calcium 8.9 mg/dL (8.6-10.3); Carbon Dioxide 26 mEq/L (23-29); Chloride 105 mEq/L (98-107); Glucose 129 mg/dL (70-105); Osmolality,Calculated 286 (280-300); Potassium 3.7 mEq/L (3.5-5.1); Sodium 136 mEq/L (136-145); Troponin I < 0.03 ng/mL (< 0.04); eGFR For African Americans > 60 (> 60); eGFR For Non-African Americans > 60 (> 60)
[2020-07-31] MEDS ORDERED: *HR* Rivaroxaban 10 MG TABLET PO SCH (09:00)
[2020-07-31] MEDS ORDERED: Loratadine 10 MG TABLET PO SCH (09:30)
[2020-07-31] MEDS ORDERED: Regadenoson 0.4 MG/5 ML SYRINGE IVP ONE (09:38)
[2020-07-31] MEDS: Budesonide/Formoterol 160/4.5 1 PUFF INH IH SCH (12:00)
[2020-07-31] MEDS ORDERED: methylPREDNISolone 125 MG/2 ML VIAL IVP PRN (14:45)
[2020-08-01] MEDS: Insulin LISPRO 300 UNITS/3 ML VIAL SQ SCH ×3 (00:43→13:56)
[2020-08-01] MEDS ORDERED: Aspirin desensitization 1 mg/ml PO ONE ×3 (08:00)
[2020-08-01] MEDS ORDERED: Famotidine 20 MG/2 ML VIAL IVP PRN (08:00)
[2020-08-01] MEDS ORDERED: Aspirin 81 MG TAB.CHEW PO ONE (08:00)
[2020-08-01] MEDS ORDERED: EPINEPHrine 1 MG/ML VIAL IM PRN (08:00)
[2020-08-01] MEDS ORDERED: Aspirin desensitization 4 mg/ml PO ONE ×4 (08:00)
[2020-08-01] MEDS ORDERED: EPINEPHrine 1 MG/ML VIAL IV PRN (08:00)
[2020-08-01] MEDS ORDERED: 0.9 % Sodium Chloride 1,000 ML ONE ×3 (09:41→15:34)
[2020-08-01] MEDS: Budesonide/Formoterol 160/4.5 1 PUFF INH IH SCH (13:31)
[2020-08-01] MEDS ORDERED: Nitroglycerin 1,000 MCG/10 ML VIAL IV ONE (14:30)
[2020-08-01] MEDS ORDERED: Heparin 1,000 UNITS/500 mL 500 ML ONE (14:30)
[2020-08-01] MEDS ORDERED: *HR* Heparin 10,000 UNIT/10 ML VIAL ONE (14:30)
[2020-08-01] MEDS ORDERED: ISOVUE-370 200 ML INFUS..BTL ONE ×2 (14:30→16:01)
[2020-08-01] MEDS ORDERED: D5% in Water 1,000 ML IVC PRN (14:46)
[2020-08-01] MEDS ORDERED: *HR* Dextrose 50 % in Water (Vial) 50 ML VIAL IVP PRN (14:46)
[2020-08-01] MEDS ORDERED: Naloxone 0.4 MG/ML INJ IVP PRN (14:46)
[2020-08-01] MEDS ORDERED: Dextrose Gel 15 GM/37.5 ML TUBE PO PRN ×2 (14:46)
[2020-08-01] MEDS ORDERED: *HR* FentaNYL (PF) 100 MCG/2 ML VIAL ONE (15:17)
[2020-08-01] MEDS ORDERED: *HR* Midazolam HCl 2 MG/2 ML VIAL ONE ×2 (15:17→16:39)
[2020-08-01] MEDS ORDERED: *HR* Bivalirudin 250 MG VIAL IVC ONE (16:01)
[2020-08-01] MEDS ORDERED: *HR* Ticagrelor 90 MG TABLET ONE (16:20)
[2020-08-01] MEDS ORDERED: Nitroglycerin 0.4 MG TAB.SUBL SL PRN (16:38)
[2020-08-01] MEDS ORDERED: 0.9 % Sodium Chloride 1,000 ML IVC SCH (16:45)
[2020-08-01] MEDS ORDERED: Haloperidol Lactate 5 MG/ML VIAL ONE (17:20)
[2020-08-01] MEDS ORDERED: Insulin LISPRO 300 UNITS/3 ML VIAL SQ SCH (18:00)
[2020-08-01] MEDS: *HR* Ticagrelor 90 MG TABLET PO SCH (21:06)
[2020-08-02 02:55] LABS: BUN/Creatinine Ratio 19 (6-26); Blood Urea Nitrogen 18 mg/dL (8-23); Carbon Dioxide 23 mEq/L (23-29); Chloride 103 mEq/L (98-107); Glucose 140 mg/dL (70-105); Magnesium 2.1 mg/dL (1.6-2.6); Osmolality,Calculated 284 (280-300); Phosphorous 3.3 mg/dL (2.7-4.5); Sodium 135 mEq/L (136-145); eGFR For African Americans > 60 (> 60); eGFR For Non-African Americans > 60 (> 60)
[2020-08-02] MEDS: Insulin LISPRO 300 UNITS/3 ML VIAL SQ SCH ×2 (07:15→11:15)
[2020-08-02] MEDS: *HR* Ticagrelor 90 MG TABLET PO SCH (08:40)
[2020-08-02] MEDS ORDERED: Metoprolol XL (24 HR) Succ 25 MG TAB.ER.24H PO SCH (09:00)
[2020-08-02] MEDS ORDERED: Loratadine 10 MG TABLET PO SCH (09:00)
[2020-08-02] MEDS ORDERED: Aspirin 81 MG TAB.CHEW PO SCH (09:00)
[2020-08-02] MEDS ORDERED: lisinopriL 5 MG TABLET PO SCH (09:00)
[2020-08-02] MEDS ORDERED: Budesonide/Formoterol 160/4.5 1 PUFF INH IH SCH (10:00)
[2020-08-02] MEDS ORDERED: FLU Vac QV 20-21 (6Month+)/PF 0.5 ML SYRINGE IM ONE (10:54)
[2020-08-02 10:58] VITALS: BP 127/80
[2020-08-02] MEDS ORDERED: *HR* Rivaroxaban 10 MG TABLET PO SCH (17:00)
[2020-08-02] MEDS ORDERED: Insulin LISPRO 300 UNITS/3 ML VIAL SQ SCH (21:00)
== END 2020-08-02 11:49 | disposition home or self-care (01) | DRG 246 ==
LOC: 2ANU 18:34 → EMEROOARM 18:34 → SUATTDRO 22:38 → 3BNU 23:06 → ICNU 08-01 08:27 → SUATTDRO 08-01 12:20 → 3BNU 08-01 13:21 → 2ANU 08-01 16:55
PROVIDERS: ADMIT Internal Medicine; ATTEND Pharmacist

== ENCOUNTER 2021-04-26 20:49 | Observation (INO) ==
[2021-04-26 22:59] LABS: Basophils % 0.6 %; Eosinophils # 0.3 K/mcL (0.0-0.6); Eosinophils % 4.9 %; Hematocrit 31.8 % (37.5-50.1); Immature Granulocytes % 0.2 % (0-4); Lymphocytes # 1.5 K/mcL (0.6-4.6); Lymphocytes % 23.3 %; Mean Corpuscular HGB Conc 31.4 g/dL (31.6-35.5); Mean Corpuscular Volume 76.4 fL (83.0-100.0); Mean Platelet Volume 11.1 fL (9.4-12.4); Monocytes # 0.7 K/mcL (0.0-1.3); Monocytes % 10.7 %; Neutrophils # 3.8 K/mcL (1.6-8.9); Platelet Count 182 K/mcL (140-400); Red Blood Count 4.16 M/mcL (4.19-5.50); Red Cell Distribution Width 16.6 % (11.5-14.5); Segmented Neutrophils % 60.3 %; White Blood Count 6.4 K/mcL (4.3-11.1)
[2021-04-26] MEDS ORDERED: Nitroglycerin 0.4 MG TAB.SUBL SL PRN (23:13)
[2021-04-26] MEDS ORDERED: Aspirin 81 MG TAB.CHEW PO ONE (23:13)
[2021-04-26 23:25] LABS: Alanine Aminotransferase 11 Units/L (7-52); Albumin 3.9 g/dL (3.5-5.7); Albumin/Globulin Ratio 1.5 (1.1-2.2); Alkaline Phosphatase 81 Units/L (34-104); Aspartate Amino Transferase 13 Units/L (13-39); BUN/Creatinine Ratio 21 (6-26); Bilirubin,Direct 0.1 mg/dL (0.0-0.2); Bilirubin,Indirect 0.3 mg/dL (0.0-1.0); Bilirubin,Total 0.4 mg/dL (0.3-1.0); Blood Urea Nitrogen 22 mg/dL (8-23); Carbon Dioxide 25 mEq/L (23-29); Chloride 103 mEq/L (98-107); Globulin 2.6 g/dL (2.4-3.5); Glucose 141 mg/dL (70-105); Osmolality,Calculated 288 (280-300); Potassium 3.5 mEq/L (3.5-5.1); Sodium 136 mEq/L (136-145); Total Protein 6.5 g/dL (6.4-8.9); Troponin I < 0.03 ng/mL (< 0.04); eGFR For African Americans > 60 (> 60); eGFR For Non-African Americans > 60 (> 60)
[2021-04-27] MEDS ORDERED: Perflutren Lipid Microsphere 1.3 ML in 0.9 % Sodium Chloride 8.7 ML IVP PRN (03:25)
[2021-04-27] MEDS ORDERED: Morphine Sulfate 2 MG/ML SYRINGE IVP PRN (04:09)
[2021-04-27] MEDS ORDERED: Naloxone 0.4 MG/ML INJ IVP PRN (04:11)
[2021-04-27] MEDS ORDERED: Acetaminophen 325 MG TABLET PO PRN (04:11)
[2021-04-27] MEDS ORDERED: Ondansetron 4 MG/2 ML VIAL IVP PRN (04:11)
[2021-04-27] MEDS ORDERED: D5% in Water 1,000 ML IVC PRN (05:01)
[2021-04-27] MEDS ORDERED: *HR* Dextrose 50 % in Water (Vial) 50 ML VIAL IVP PRN (05:01)
[2021-04-27] MEDS ORDERED: Dextrose Gel 15 GM/37.5 ML TUBE PO PRN ×2 (05:01)
[2021-04-27 05:03] VITALS: O2SAT 100
[2021-04-27 05:13] LABS: Hematocrit 33.2 % (37.5-50.1); Mean Corpuscular HGB Conc 30.1 g/dL (31.6-35.5); Mean Corpuscular Hemoglobin 23.1 pg (28.0-33.3); Mean Corpuscular Volume 76.9 fL (83.0-100.0); Mean Platelet Volume 11.3 fL (9.4-12.4); Platelet Count 186 K/mcL (140-400); Red Blood Count 4.32 M/mcL (4.19-5.50); Red Cell Distribution Width 16.5 % (11.5-14.5); White Blood Count 5.8 K/mcL (4.3-11.1)
[2021-04-27 05:20] LABS: INR 1.3
[2021-04-27 05:23] LABS: Activated Partial Thrombo Time 35.7 Seconds (26.0-36.0)
[2021-04-27 05:54] LABS: Folate 17.1 ng/mL (3.0-16.0)
[2021-04-27] MEDS ORDERED: Regadenoson 0.4 MG/5 ML SYRINGE IVP ONE (06:16)
[2021-04-27 06:25] LABS: Estimated Average Glucose 171 mg/dl; Hemoglobin A1C 7.6 %
[2021-04-27] MEDS: Insulin LISPRO 300 UNITS/3 ML VIAL SUBQ SCH ×2 (07:03→12:13)
[2021-04-27] MEDS ORDERED: *HR* Ticagrelor 90 MG TABLET PO SCH (09:00)
[2021-04-27] MEDS ORDERED: Aspirin Enteric Coated 81 MG Tablet PO SCH (09:00)
[2021-04-27 11:58] VITALS: PULSE 85; TEMP 97.4
[2021-04-27 14:09] VITALS: BP 136/83
== END 2021-04-27 14:17 | disposition home or self-care (01) ==
LOC: CDU 20:49 → EMEROOARM 20:49 → SUATTDRO 04-27 01:53 → CDU 04-27 04:09
PROVIDERS: ADMIT Internal Medicine; ATTEND Family Medicine